=== PATIENT | female | born 1985 | race Caucasian/White ===

== ENCOUNTER 2020-10-01 08:42 | Outpatient (CLI) | payer BC, SELFPAY ==
[2020-10-01 09:30] LABS: Hematocrit 41.3 % (37.0-47.0); Hemoglobin 13.5 g/dL (12.0-15.0); Mean Corpuscular HGB Conc 32.7 g/dl (32-36); Mean Corpuscular Hemoglobin 29.5 pg (26-34); Mean Corpuscular Volume 90.4 fl (80-100); Mean Platelet Volume 9.6 fl (7.4-10.4); Platelet Count Result 236 k/mm3 (150-375); Red Blood Count 4.57 M/mm3 (4.2-5.4); Red Cell Distribution Width 12.5 % (11.5-14.5); White Blood Count 4.5 K/mm3 (4.5-10.0)
[2020-10-01 09:46] LABS: Alanine Aminotransferase 25 U/L (4-35); Albumin Level 4.7 g/dL (3.5-5.1); Alkaline Phosphatase 64 U/L (38-126); Anion Gap 5 mmol/L (8-16); Aspartate Amino Transferase 28 U/L (14-36); Bilirubin,Total 0.4 mg/dL (0.2-1.3); Blood Urea Nitrogen 16 mg/dL (7-17); Calcium 9.4 mg/dL (8.4-10.2); Carbon Dioxide 29 mmol/L (22-30); Chloride 99 mmol/L (98-107); Creatine Kinase 90 U/L (30-135); Estimated Glomerular Filt Rate > 60; Glucose 95 mg/dL (65-110); Magnesium 2.2 mg/dL (1.6-2.3); Potassium 4.3 mmol/L (3.4-5.0); Sodium 133 mmol/L (137-145)
[2020-10-01 12:34] LABS: Basophils Percent Auto 0.9 % (0.2-1.2); Eosinophils Absolute Auto 0.1 K/mm3 (0-0.3); Eosinophils Percent Auto 1.8 % (0-4.4); Immature Granulocyte Absolute 0.01 K/mm3 (0.00-0.031); Immature Granulocyte Percent A 0.2 % (0-0.5); Lymphocytes Absolute Auto 1.75 K/mm3 (0.9-3.2); Monocytes Absolute Auto 0.8 K/mm3 (0.1-0.6); Monocytes Percent Auto 17.6 % (2.6-8.5); Neutrophils Absolute Auto 1.8 K/mm3 (1.3-6.7); Neutrophils Percent Auto 40.5 % (45.5-73.1)
== END 2020-10-01 08:43 | disposition home or self-care (01) ==
PROVIDERS: PCP Family Medicine; Visit Provider Family Medicine
DX: R25.2 Cramp and spasm (principal)
CPT/HCPCS: 36415; 80053; 82550; 83735; 84443; 85025; 85027

== ENCOUNTER 2020-10-11 08:29 | Outpatient (CLI) | payer BC, SELFPAY ==
[2020-10-11 08:45] LABS: Basophils Percent Auto 0.8 % (0.2-1.2); Eosinophils Absolute Auto 0.1 K/mm3 (0-0.3); Eosinophils Percent Auto 1.9 % (0-4.4); Hematocrit 39.6 % (37.0-47.0); Hemoglobin 13.3 g/dL (12.0-15.0); Lymphocytes Absolute Auto 2.36 K/mm3 (0.9-3.2); Lymphocytes Percent Auto 44.9 % (18.3-44.2); Mean Corpuscular HGB Conc 33.6 g/dl (32-36); Mean Corpuscular Hemoglobin 29.8 pg (26-34); Mean Corpuscular Volume 88.6 fl (80-100); Monocytes Absolute Auto 0.7 K/mm3 (0.1-0.6); Monocytes Percent Auto 13.1 % (2.6-8.5); Neutrophils Absolute Auto 2.1 K/mm3 (1.3-6.7); Neutrophils Percent Auto 39.3 % (45.5-73.1); Platelet Count Result 212 k/mm3 (150-375); Red Blood Count 4.47 M/mm3 (4.2-5.4); White Blood Count 5.3 K/mm3 (4.5-10.0)
== END 2020-10-11 08:30 | disposition home or self-care (01) ==
PROVIDERS: PCP Family Medicine; Visit Provider Family Medicine
DX: D72.89 Other specified disorders of white blood cells (principal)
CPT/HCPCS: 36415; 85025

== ENCOUNTER 2020-11-15 09:30 | Outpatient (CLI) | payer BC, SELFPAY ==
[2020-11-15 10:45] LABS: Basophils Percent Auto 0.6 % (0.2-1.2); Eosinophils Absolute Auto 0.1 K/mm3 (0-0.3); Eosinophils Percent Auto 1.5 % (0-4.4); Hematocrit 42.6 % (37.0-47.0); Hemoglobin 14.1 g/dL (12.0-15.0); Immature Granulocyte Absolute 0.01 K/mm3 (0.00-0.031); Immature Granulocyte Percent A 0.2 % (0-0.5); Lymphocytes Absolute Auto 1.46 K/mm3 (0.9-3.2); Lymphocytes Percent Auto 26.8 % (18.3-44.2); Mean Corpuscular HGB Conc 33.1 g/dl (32-36); Mean Corpuscular Hemoglobin 29.8 pg (26-34); Mean Corpuscular Volume 90.1 fl (80-100); Mean Platelet Volume 9.9 fl (7.4-10.4); Monocytes Absolute Auto 0.6 K/mm3 (0.1-0.6); Monocytes Percent Auto 11.2 % (2.6-8.5); Neutrophils Absolute Auto 3.3 K/mm3 (1.3-6.7); Neutrophils Percent Auto 59.7 % (45.5-73.1); Platelet Count Result 220 k/mm3 (150-375); Red Blood Count 4.73 M/mm3 (4.2-5.4); Red Cell Distribution Width 12.1 % (11.5-14.5); White Blood Count 5.5 K/mm3 (4.5-10.0)
[2020-11-15 11:29] LABS: Alanine Aminotransferase 24 U/L (4-35); Albumin Level 4.8 g/dL (3.5-5.1); Alkaline Phosphatase 61 U/L (38-126); Anion Gap 11 mmol/L (8-16); Aspartate Amino Transferase 43 U/L (14-36); Bilirubin,Total 0.6 mg/dL (0.2-1.3); Blood Urea Nitrogen 15 mg/dL (7-17); CRP < 0.5 mg/dL (<1.0); Calcium 9.2 mg/dL (8.4-10.2); Carbon Dioxide 25 mmol/L (22-30); Chloride 105 mmol/L (98-107); Estimated Glomerular Filt Rate > 60; Glucose 81 mg/dL (65-110); Sodium 141 mmol/L (137-145)
[2020-11-15 18:41] LABS: Erythrocyte Sedimentation Rate 13 mm/hr (0-20)
[2020-11-21 11:51] LABS: BCR/abl Prior Result Not Given
[2020-11-21 12:37] LABS: BCR/abl P190 Not Detected; BCR/abl P210 Not Detected
[2020-11-21 12:38] LABS: BCR/abl P190 Chg YES; BCR/abl P210 Chg YES
== END 2020-11-15 09:31 | disposition home or self-care (01) ==
LOC: ANHLAB 09:32
PROVIDERS: PCP Family Medicine; Visit Provider Internal Medicine Hematology & Oncology
DX: D72.821 Monocytosis (symptomatic) (principal)
CPT/HCPCS: 36415; 80053; 81206; 81207; 85025; 85652; 86038; 86140; 88184

== ENCOUNTER 2020-11-21 08:24 | Outpatient (CLI) | payer BC, SELFPAY ==
--- NOTE | ~2020-11-21 | US_ITS ---
EXAMINATION: US abdomen complete EXAM DATE: 11/21/2020 09:31 INDICATION: Monocytosis TECHNIQUE: Multiple grayscale and Doppler images of the complete abdomen were obtained (by a technolo gist who performed the scan) and subsequently reviewed. There is no prior study for comparison. FINDINGS: The abdominal aorta is normal in caliber. Visualized portion IVC is patent. The pancreatic head a nd body are normal in appearance. The pancreatic tail is not visualized. The liver has normal echogenicity and contour. There are no focal liver lesions identified. There is no evidence of intrahepatic biliary duct dilation. Portal venous flow was seen in the hepatopedal , normal direction and has normal Doppler waveform. Common bile duct measures 2 mm, which is normal. The gallbladder wall is normal in thickness, with ex pected amount of distention. No sonographic evidence of pericholecystic fluid. There is no cholelit hiases. Technologist performing exam reports patient did not demonstrate sonographic Maya's sign. Please note that this sign is less reliable in patients who have received pain medication. Right kidney: There is normal contour and echogenicity. It measures 9.1 x 4.3 x 3.9 centimeters. T here are no focal renal lesions identified. There is no hydronephrosis. Left kidney: There is normal contour and echogenicity. It measures 10.0 x 5.6 x 4.5 centimeters. T here are no focal renal lesions identified. There is no hydronephrosis. The spleen measures 8.8 centimeters and is morphologically normal. IMPRESSION: Unremarkable complete abdominal ultrasound exam. Normal spleen size. Reviewed, dictated and finalized at location G. IMPRESSION: Unremarkable complete abdominal ultrasound exam. Normal spleen size .
== END 2020-11-21 08:25 | disposition home or self-care (01) ==
LOC: ANHIMG 08:27
PROVIDERS: PCP Family Medicine; Visit Provider Internal Medicine Hematology & Oncology
DX: D72.821 Monocytosis (symptomatic) (principal)
CPT/HCPCS: 76700

== ENCOUNTER 2021-05-29 15:28 | Outpatient (CLI) | payer BC, SELFPAY ==
[2021-05-29 15:44] LABS: Basophils Percent Auto 0.4 % (0.2-1.2); Eosinophils Absolute Auto 0.1 K/mm3 (0-0.3); Eosinophils Percent Auto 1.2 % (0-4.4); Hematocrit 38.6 % (37.0-47.0); Hemoglobin 12.8 g/dL (12.0-15.0); Immature Granulocyte Absolute 0.01 K/mm3 (0.00-0.031); Immature Granulocyte Percent A 0.1 % (0-0.5); Lymphocytes Percent Auto 31.4 % (18.3-44.2); Mean Corpuscular HGB Conc 33.2 g/dl (32-36); Mean Corpuscular Hemoglobin 30.5 pg (26-34); Mean Corpuscular Volume 91.9 fl (80-100); Mean Platelet Volume 10.2 fl (7.4-10.4); Monocytes Absolute Auto 0.6 K/mm3 (0.1-0.6); Monocytes Percent Auto 8.8 % (2.6-8.5); Neutrophils Absolute Auto 3.9 K/mm3 (1.3-6.7); Neutrophils Percent Auto 58.1 % (45.5-73.1); Platelet Count Result 211 k/mm3 (150-375); Red Cell Distribution Width 12.1 % (11.5-14.5); White Blood Count 6.7 K/mm3 (4.5-10.0)
[2021-05-29 16:05] LABS: Alanine Aminotransferase 17 U/L (4-35); Albumin Level 4.4 g/dL (3.5-5.1); Alkaline Phosphatase 51 U/L (38-126); Anion Gap 7 mmol/L (8-16); Aspartate Amino Transferase 40 U/L (14-36); Bilirubin,Total 0.5 mg/dL (0.2-1.3); Blood Urea Nitrogen 17 mg/dL (7-17); Calcium 9.2 mg/dL (8.4-10.2); Carbon Dioxide 24 mmol/L (22-30); Chloride 106 mmol/L (98-107); Estimated Glomerular Filt Rate > 60; Glucose 112 mg/dL (65-110); Potassium 3.7 mmol/L (3.4-5.0); Sodium 137 mmol/L (137-145)
== END 2021-05-29 15:29 | disposition home or self-care (01) ==
PROVIDERS: PCP Internal Medicine; Visit Provider Internal Medicine Hematology & Oncology
DX: D72.821 Monocytosis (symptomatic) (principal)
CPT/HCPCS: 36415; 80053; 85025

== ENCOUNTER 2021-07-16 13:58 | Outpatient (CLI) | payer BC, SELFPAY ==
[2021-07-16 14:54] LABS: Appearance Urine Slightly Cloudy (Clear); Bilirubin Urine Negative (Negative); Blood Urine Trace-lysed (Negative); Glucose Urine UA Negative (Negative); Ketones Urine Negative (Negative); Leukocyte Esterase Ur 1+ LEU/UL (Negative); Nitrate Urine Negative (Negative); Protein Urine Negative (Negative); Specific Grav Ur 1.015 (1.001-1.035); Urobilinogen Urine 0.2 mg/dL (<2.0); pH Urine 6.5 (5.0-9.0)
[2021-07-16 14:59] LABS: Add Urine Microscopic? YES; Color Urine Light Yellow (Yellow)
[2021-07-16 15:01] LABS: Bacteria Urine Trace /hpf; Mucus Urine Rare /lpf; RBC Urine 0-2 /hpf (0-2); Squamous Epithelial Cell Urine Occasional /hpf (Few); WBC Urine 16-20 /hpf
== END 2021-07-16 13:59 | disposition home or self-care (01) ==
LOC: ANHLAB 14:00
PROVIDERS: PCP Internal Medicine; Visit Provider Nurse Practitioner
DX: R39.9 Unspecified symptoms and signs involving the genitourinary system (principal)
CPT/HCPCS: 81001; 87077; 87086; 87186

== ENCOUNTER 2021-07-28 11:56 | Outpatient (CLI) | payer BC, SELFPAY ==
--- NOTE | ~2021-07-28 | US_ITS ---
EXAMINATION: US renal BI DATE: 07/28/2021 12:38 INDICATION: Right flank pain. Nephrolithiasis. TECHNIQUE: Multiple ultrasound grayscale images of the kidneys were obtained. COMPARISON: 12/01/2020 FINDINGS: The right kidney measures 9.9 x 3.8 x 6.0 cm. The left kidney measures 10.8 x 5.6 x 5.6 cm. The kidne ys demonstrate normal echogenicity. Unchanged mild right hydronephrosis. No hydronephrosis in the lef t kidney. 4 mm echogenic likely stone at the lower pole of the left kidney with twinkle artifact on color Doppler. Additional 7-8 mm echogenic likely stone at the upper pole of the left kidney. The robbin dder is normal with bilateral ureteral jets visualized on color Doppler. IMPRESSION: 1. Bilateral nephrolithiasis. 2. No interval change in either chronic or recurrent mild right hydronephrosis. Reviewed, dictated and finalized at location A.
== END 2021-07-28 11:57 | disposition home or self-care (01) ==
PROVIDERS: PCP Internal Medicine; Visit Provider Nurse Practitioner
DX: R10.9 Unspecified abdominal pain (principal); N20.0 Calculus of kidney
CPT/HCPCS: 76775

== ENCOUNTER 2021-08-19 10:13 | Outpatient (CLI) | payer BC, SELFPAY ==
[2021-08-19 11:06] LABS: Appearance Urine Clear (Clear); Bilirubin Urine Negative (Negative); Glucose Urine UA Negative (Negative); Ketones Urine Negative (Negative); Leukocyte Esterase Ur Trace LEU/UL (Negative); Nitrate Urine Negative (Negative); Protein Urine Negative (Negative); Urobilinogen Urine 0.2 mg/dL (<2.0)
[2021-08-19 11:13] LABS: Bacteria Urine Trace /hpf; Mucus Urine Rare /lpf
[2021-08-19 11:34] LABS: Add Urine Microscopic? YES; Blood Urine Trace-Intact (Negative); Color Urine Light Yellow (Yellow)
== END 2021-08-19 10:14 | disposition home or self-care (01) ==
PROVIDERS: PCP Internal Medicine; Visit Provider Internal Medicine
DX: R30.0 Dysuria (principal)
CPT/HCPCS: 81001; 87077; 87086; 87186

== ENCOUNTER 2022-01-21 15:47 | Outpatient (CLI) | payer BC, SELFPAY ==
--- NOTE | ~2022-01-21 | XR_ITS ---
XR_[id number]_CR DATE: 01/21/2022 16:04 INDICATION: Right chest pain. History of Madhav Danlos syndrome TECHNIQUE: PA chest. 3 views of the right ribs. COMPARISON: None FINDINGS: Normal heart size. No hilar or mediastinal enlargement. The lungs are clear of infiltrate or consolidation, pulmonary vascular congestion or pleural effusion. No rib fracture or bone destru ction. No pneumothorax. IMPRESSION: No active cardiopulmonary disease No significant abnormality of the right ribs Reviewed, dictated and finalized at Location A. Reviewed, dictated and finalized at location B. [employer]'S LICENSE REVIEWING OFFICER
== END 2022-01-21 15:48 | disposition home or self-care (01) ==
LOC: ANHIMG 15:48
PROVIDERS: PCP Internal Medicine; Visit Provider Nurse Practitioner
DX: R07.81 Pleurodynia (principal); Q79.60 Ehlers-Danlos syndrome, unspecified
CPT/HCPCS: 71101

== ENCOUNTER 2022-03-31 00:04 | Emergency (ER) | payer BC, SELFPAY ==
[2022-03-31 00:06] VITALS: BP 115/75; PULSE 77; RESP 18; TEMP 36.2; O2SAT 100
[2022-03-31 00:23] LABS: Appearance Urine Cloudy (Clear); Bilirubin Urine Negative (Negative); Blood Urine 3+ (Negative); Glucose Urine UA Negative (Negative); Ketones Urine Negative (Negative); Leukocyte Esterase Ur 1+ LEU/UL (Negative); Nitrate Urine Negative (Negative); Protein Urine 1+ mg/dL (Negative); Specific Grav Ur 1.015 (1.001-1.035); Urobilinogen Urine 0.2 mg/dL (<2.0)
[2022-03-31 00:25] LABS: Add Urine Microscopic? YES; Color Urine Light Red (Yellow)
[2022-03-31 00:28] LABS: Bacteria Urine Trace /hpf; Mucus Urine Rare /lpf; RBC Urine >75 /hpf (0-2); Squamous Epithelial Cell Urine Moderate /hpf (Few); WBC Urine 51-75 /hpf
--- NOTE | 2022-03-31 02:07 | PC.NURSE ---
Pt presents with c/o left sided flank pain that started earlier this evening. She recognized the pain as a kidney stone. States she had multiple episodes of hematuria at home. States while she was waiting in the waiting room I felt the stone move into my bladder, so I went to the bathroom with a urine strainer. When I looked at the strainer, it looked like I passed a bunch of tissue . She showed a picture to this RN. States there was no kidney stone in the strainer. States her left sided flank pain has resolved and now she has pain on the right side, but it feels more similar to her Madhav-Danlos pain.
[2022-03-31 02:09] LABS: Basophils Percent Auto 0.4 % (0.2-1.2); Eosinophils Absolute Auto 0.1 K/mm3 (0-0.3); Eosinophils Percent Auto 0.6 % (0-4.4); Hematocrit 36.7 % (37.0-47.0); Hemoglobin 12.6 g/dL (12.0-15.0); Immature Granulocyte Absolute 0.03 K/mm3 (0.00-0.031); Immature Granulocyte Percent A 0.3 % (0-0.5); Lymphocytes Percent Auto 17.9 % (18.3-44.2); Mean Corpuscular HGB Conc 34.3 g/dl (32-36); Mean Corpuscular Hemoglobin 30.4 pg (26-34); Mean Corpuscular Volume 88.4 fl (80-100); Mean Platelet Volume 9.6 fl (7.4-10.4); Monocytes Absolute Auto 1.2 K/mm3 (0.1-0.6); Monocytes Percent Auto 12.2 % (2.6-8.5); Neutrophils Absolute Auto 6.9 K/mm3 (1.3-6.7); Neutrophils Percent Auto 68.6 % (45.5-73.1); Platelet Count Result 238 k/mm3 (150-375); Red Blood Count 4.15 M/mm3 (4.2-5.4); Red Cell Distribution Width 12.5 % (11.5-14.5); White Blood Count 10.1 K/mm3 (4.5-10.0)
[2022-03-31 02:19] LABS: Alanine Aminotransferase 16 U/L (6-35); Albumin Level 4.4 g/dL (3.5-5.1); Alkaline Phosphatase 58 U/L (38-126); Anion Gap 5 mmol/L (8-16); Aspartate Amino Transferase 22 U/L (14-36); Bilirubin,Total 0.4 mg/dL (0.2-1.3); Blood Urea Nitrogen 18 mg/dL (7-17); Calcium 8.9 mg/dL (8.4-10.2); Carbon Dioxide 26 mmol/L (22-30); Chloride 101 mmol/L (98-107); Estimated CRCL calculation 62 ml/min; Estimated Glomerular Filt Rate > 60; Glucose 104 mg/dL (65-110); Potassium 3.9 mmol/L (3.4-5.0); Sodium 132 mmol/L (137-145)
--- NOTE | 2022-03-31 02:25 | ED.FEMALEGU ---
HPI - Female Genitourinary General Chief complaint: Urogenital-Female Stated complaint: L flank pain, kidney stone? Time Seen by Provider: 03/31/22 01:55 History of Present Illness HPI Narrative: This is a 36-year-old female with past medical history of Madhav-Danlos syndrome and multiple kidney stones who presents for left flank pain and urinary urgency. Patient states symptoms began a couple of days ago. Originally she thought she was having any EDS flare, but then felt that her symptoms felt more like a kidney stone today. She also had hematuria at home. Denies nausea. Reports left flank pain that radiates towards lower abdomen. Patient states that shortly after triage she urinated and had some clots that came out. States that her flank pain improved dramatically after urination. Now there is just minimal discomfort in the low back and suprapubic abdomen. Denies fevers, chills, chest pain, shortness of breath, lightheadedness, syncope. No past abdominal surgical history. Related Data Home Medications Medication Instructions Recorded Confirmed spironolactone 25 mg tablet 25 mg PO HS 12/19/18 01/16/22 Allergies Allergy/AdvReac Type Severity Reaction Status Date / Time Cephalosporins Allergy Mild Unknown Verified 01/16/22 07:17 latex Allergy Mild Unknown Verified 01/16/22 07:17 adhesive tape Allergy Unknown Unknown Verified 01/16/22 07:17 Review of Systems Review of Systems: CONSTITUTIONAL: Denies fever, chills, or sweats. EYES: Denies visual changes, redness, or discharge. ENT: Denies rhinorrhea, congestion, sore throat, or otalgia. CARDIOVASCULAR: Denies chest pain, palpitations, or edema. RESPIRATORY: Denies cough or dyspnea. GASTROINTESTINAL: Endorses abdominal pain. Denies nausea, vomiting, or diarrhea. Endorses flank pain GENITOURINARY: Denies dysuria. Endorses urgency and hematuria. SKIN: Denies rash or itching. MUSCULOSKELETAL: Denies back pain, joint pain, or myalgia. NEUROLOGIC: Denies headache, numbness, dizziness, or weakness. PSYCHIATRIC: Denies anxiety or depression. [facility] Past Medical History Medical History Depression Hematochezia Hypertension Ovarian cyst Renal calculi Small intestinal bacterial overgrowth (SIBO) Surgical History Surgical History History of ovarian cystectomy Hx of section [place] teeth extracted Family History Family History Father Hypertension Depression Cancer Social History Social History (Updated 01/16/22 @ 07:16 by Sarah White MA) Smoking status: Never smoker Alcohol intake: never Substance use: never Substance use type: does not use Lack of Transportation: No Lack of Food: Never True Current Housing: I Have Housing Concerned About Future Housing: No Difficulty Paying Gas/Electric Bills: No Difficulty Paying for Meds: No Currently Unemployed: No Education: Bachelor's Degree Difficulty w/ Childcare or Family Care: No Living arrangements: with family Occupation/Education: occupation 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 HEAD: Normocephalic, atraumatic. EYES: PERRLA and EOMI. ENT: Nares clear, no rhinorrhea or epistaxis. Mucous membranes moist. Oropharynx without tonsillar hypertrophy exudate or other lesions. NECK: Supple. No adenopathy or masses. CHEST: No respiratory distress. Clear to auscultation. No wheezes rales or rhonchi HEART: Regular rate and rhythm. No murmur heard. Normal peripheral pulses. ABDOMEN: Soft, nondistended, normal active bowel sounds. Minimal suprapubic tenderness. No peritoneal signs. Mild tenderness in the left flank. EXTREMITIES: Normal range of motion. No edema. SKIN: Warm, dry, no rash. NEURO: Alert and oriented x3. No foca
[2022-03-31 02:45] VITALS: BP 107/65; PULSE 66; RESP 16; O2SAT 100
== END 2022-03-31 02:50 | disposition home or self-care (01) ==
PROVIDERS: Emergency Medicine; Emergency Provider Physician Assistant; PCP Internal Medicine
DX: R10.9 Unspecified abdominal pain (principal); R31.9 Hematuria, unspecified; Q79.60 Ehlers-Danlos syndrome, unspecified; I10 Essential (primary) hypertension; F32.A Depression, unspecified; Z87.442 Personal history of urinary calculi
CPT/HCPCS: 36415; 80053; 81001; 85025; 87086; 87088; 99283

== ENCOUNTER 2022-04-27 15:21 | Outpatient (CLI) | payer BC, SELFPAY ==
--- NOTE | ~2022-04-27 | XR_ITS ---
Supine views of the abdomen Clinical history: Renal stones COMPARISON: 02/04/2008 Findings: Bowel gas pattern is nonspecific. No evidence for obstruction or free air. Suspected very s mall left renal stones noted. Osseous structures are intact. Impression: Suspected very small left renal stones. Reviewed, dictated and finalized at location . Impression: Suspected very small left renal stones.
--- NOTE | ~2022-04-27 | US_ITS ---
EXAMINATION: US retroperitoneal comp DATE: 04/27/2022 16:01 INDICATION: Bilateral renal stones TECHNIQUE: Multiple ultrasound grayscale images of the kidneys were obtained. COMPARISON: 07/28/2021 and 11/21/2020 FINDINGS: The right kidney measures 10.7 x 3.8 x 4.7 cm. The left kidney measures 10.9 x 5.1 x 5.0 cm. The kidn eys demonstrate normal echogenicity. 6 mm echogenic right renal stone with posterior twinkle artifact . Additional larger echogenic and shadowing stones in the left renal hilum. 1 cm anechoic left renal cyst. Unchanged mild right hydronephrosis. No left hydronephrosis. The bladder is normal with bilater al ureteral jets visualized on color Doppler. IMPRESSION: 1. Bilateral nephrolithiasis. 2. Unchanged chronic mild right hydronephrosis with bilateral ureteral jets visualized in the bladder on color Doppler. Reviewed, dictated and finalized at location L. IMPRESSION: 1. Bilateral nephrolithiasis. 2. Unchanged chronic mild right hydronephrosis with bilateral ureteral jets vis ualized in the bladder on color Doppler.
== END 2022-04-27 15:22 | disposition home or self-care (01) ==
PROVIDERS: PCP Internal Medicine; Visit Provider Nurse Practitioner Adult Health
DX: N20.0 Calculus of kidney (principal); N13.30 Unspecified hydronephrosis
CPT/HCPCS: 74018; 76770

== ENCOUNTER 2022-05-05 15:18 | Outpatient (CLI) | payer BC, SELFPAY ==
--- NOTE | ~2022-05-05 | CT_ITS ---
EXAMINATION: CT abdomen pelvis wo/w con DATE: 05/05/2022 16:00 INDICATION: Hydronephrosis TECHNIQUE: Computed tomography (CT) of the abdomen and pelvis was performed without and subsequently with 130 CC Omnipaque 350 intravenous contrast. Automated exposure control and iterative reconstructi on technique were employed. Exam dose: 1111.77 mGy-cm total exam DLP. COMPARISON: 04/27/2022 KUB 12/03/2007 CT abdomen FINDINGS: The lung bases are clear of infiltrate or consolidation. Right lower lobe calcified pulmona ry granuloma. Heart size is within normal range. Pectus excavatum. The liver, gallbladder, bile ducts, pancreas, pancreatic duct, spleen and adrenal glands appear mg l. Pinpoint nonobstructing upper pole right renal calculus. Large upper pole left renal staghorn calculus with attenuation of 1089 Hounsfield units. Approximately 4 pinpoint nonobstructing lower pole left renal calculi. No left or right ureteral calculus or hydroureteronephrosis. No intraluminal filling defect of the renal collecting structures, ureters or urinary bladder. Uterus and adnexal areas are unremarkable. Normal caliber of the abdominal aorta. No intraperitoneal or retroperitoneal or pelvic mass lesion or adenopathy or ascites. Normal appendix. No bowel obstruction or intraperitoneal free air. Small fat-containing umbilical hernia. Included skeletal structures are unremarkable. IMPRESSION: Bilateral nephrolithiasis Occasional small renal cysts Pectus excavatum Reviewed, dictated and finalized at Location A. Reviewed, dictated and finalized at location B.
== END 2022-05-05 15:19 | disposition home or self-care (01) ==
PROVIDERS: PCP Internal Medicine; Visit Provider Nurse Practitioner Adult Health
DX: N20.0 Calculus of kidney (principal); N28.1 Cyst of kidney, acquired; Q67.6 Pectus excavatum
CPT/HCPCS: 74178; Q9967

== ENCOUNTER 2022-06-01 14:10 | Outpatient (CLI) | payer BC, SELFPAY ==
--- NOTE | ~2022-06-01 | XR_ITS ---
XR abdomen/kub 1V DATE: 06/01/2022 14:27 INDICATION: Bilateral renal stones. Lithotripsy and stent on 05/28/2022 TECHNIQUE: AP projection, 2 views COMPARISON: 05/05/2022 CT abdomen pelvis 04/27/2022 KUB FINDINGS: There is interval placement of a left internal urinary stent, the proximal extent not fully formed, overlying the approximate region of the left renal pelvis. The distal pigtail overlies the l eft side of the urinary bladder. Faintly calcified staghorn calculus of upper pole left kidney appears to still be present. Because of the very faint density of the left renal calculi, CT imaging will be more reliable for follow-up. The lung bases appear clear. There is a prominent of fecal material in the colon. No bowel obstruction is evident. The psoas shado ws are intact. No visceromegaly is evident. Included skeletal structures are unremarkable. IMPRESSION: Left internal urinary stent placement Reviewed, dictated and finalized at Location A. Reviewed, dictated and finalized at location B.
== END 2022-06-01 14:11 | disposition home or self-care (01) ==
PROVIDERS: PCP Internal Medicine; Visit Provider Urology
DX: N20.0 Calculus of kidney (principal)
CPT/HCPCS: 74018

== ENCOUNTER → 2022-06-02 14:15 | Outpatient (CLI) | payer BC, SELFPAY ==
--- NOTE | ~2022-06-02 | XR_ITS ---
EXAMINATION: CT abdomen pelvis wo con, XR abdomen/kub 1V DATE: 06/02/2022 14:36 INDICATION: Left renal stone TECHNIQUE: 1. Computed tomography (CT) of the abdomen and pelvis was performed without intravenous contrast. Aut omated exposure control and iterative reconstruction technique were employed. The dose-length product was 281.19 mGy-cm. 2. AP view of the abdomen and pelvis was obtained on 2 overlapping radiographs. COMPARISON: CT dated 05/05/2022 and KUB dated 06/01/2022 FINDINGS: Calcified right lower lobe nodule consistent with old granulomatous disease.. Pectus excavatum which exerts mass effect upon the anterior wall of the right ventricle. Heart size is normal. No pericardia l or pleural effusion. Liver, gallbladder, spleen, pancreas and bilateral adrenal glands are normal. A couple 1-2 mm nonobstructing stones at the upper pole of the right kidney. Left internal ureteral s tent with partially formed loop in the left renal pelvis and distal formed loop in the normal bladder . There is persistent caliectasis at the upper pole of the left kidney at the site of a prior dense s taghorn calculus. Less dense appearing collection of stone fragments now seen in the lower pole calyc es of the left kidney and in the dependent aspect of the left renal pelvis. The collection of stones in the lower pole calyces are visible on the plain radiographs. No stone fragments appreciated in the left ureter alongside the ureteral stent. There are several phleboliths in the pelvis. Bowels including the appendix are normal. Anteverted uterus is normal. Trace amount of likely physiol ogic free fluid in the pelvis. No abscess or free intraperitoneal gas. No pathologically enlarged abd ominal or pelvic lymphadenopathy. Bones are unremarkable. IMPRESSION: 1. Left internal ureteral stent in expected position post lithotripsy with multiple stone fragments a t the left renal pelvis and lower pole calyces of the left kidney. No stone tendons along the left ur eter. 2. Residual mild left renal upper pole caliectasis which conforms in shape and size to the prior stag horn calculus. No ann hydronephrosis. 2. A couple nonobstructing 1-2 mm stones at the upper pole of the right kidney. Reviewed, dictated and finalized at location A. IMPRESSION: 1. Left internal ureteral stent in expected position post lithotripsy with mult iple stone fragments at the left renal pelvis and lower pole calyces of the lef t kidney. No stone tendons along the left ureter. 2. Residual mild left renal upper pole caliectasis which conforms in shape and size to the prior staghorn calculus. No ann hydronephrosis. 2. A couple nonobstructing 1-2 mm stones at the upper pole of the right kidney.
== END ==
PROVIDERS: PCP Urology; Visit Provider Urology
DX: N20.0 Calculus of kidney (principal); N28.89 Other specified disorders of kidney and ureter
CPT/HCPCS: 74018; 74176

== ENCOUNTER → 2022-07-09 13:42 | Outpatient (CLI) | payer BC, SELFPAY ==
--- NOTE | ~2022-07-09 | CT_ITS ---
Non-contrast CT scan of the Abdomen and Pelvis Clinical indication: Left-sided kidney stone Technique: 2.5 mm axial scans were obtained through the abdomen and pelvis without intravenous or or al contrast. Dose reduction technique was used on this scan by utilizing automated exposure control a nd iterative reconstruction technique. The dose-length product (DLP) was 258.78 mGy-cm. COMPARISON: 06/02/2022 Findings: Images through the lung bases reveal calcified right basilar granuloma. Left ureteral stent remains in place. No left renal or left ureteral stones seen currently. Left hydr onephrosis is essentially completely resolved. Punctate nonobstructing right renal stone noted. No ri ght hydronephrosis. The liver, spleen, pancreas, gallbladder, and adrenals appear normal. There is no aortic aneurysm. There is no evidence of bowel obstruction. Images through the pelvis were performed. There is no evidence of ascites or lymphadenopathy. Bladder unremarkable aside from the ureteral stent present. No adnexal mass evident. Impression: Left ureteral stent in place. No hydronephrosis. No left renal or ureteral stones seen currently. Punctate nonobstructing right renal stone. Reviewed, dictated and finalized at [facility]. Impression: Left ureteral stent in place. No hydronephrosis. No left renal or ureteral ston es seen currently. Punctate nonobstructing right renal stone.
== END ==
PROVIDERS: PCP Urology; Visit Provider Urology
DX: N20.0 Calculus of kidney (principal); Z96.0 Presence of urogenital implants
CPT/HCPCS: 74176

== ENCOUNTER → 2022-08-21 13:19 | Outpatient (CLI) | payer BC, SELFPAY ==
--- NOTE | ~2022-08-21 | XR_ITS ---
EXAM: XR abdomen/kub 1V DATE: 08/21/2022 13:32 HISTORY: Kidney stone on left side . COMPARISON: 06/02/2022. FINDINGS: Interval left ureteral stent removal. Clear lung bases. Normal bowel gas pattern. No organo megaly. Multiple pelvic phleboliths. Regional bones and soft tissues normal for age. IMPRESSION: The previously described bilateral renal stones are not radiographically visible, likely obscured by bowel gas. Reviewed, dictated and finalized at location K. IMPRESSION: The previously described bilateral renal stones are not radiographi celeste visible, likely obscured by bowel gas.
== END ==
PROVIDERS: PCP Urology; Visit Provider Urology
DX: N20.0 Calculus of kidney (principal)
CPT/HCPCS: 74018

== ENCOUNTER → 2022-12-23 16:07 | Outpatient (CLI) | payer BC, SELFPAY ==
--- NOTE | ~2022-12-23 | XR_ITS ---
EXAMINATION: XR lumbar spine 2-3V DATE: 12/23/2022 16:19 INDICATION: Radiculopathy, lumbar region. TECHNIQUE: 3 views of lumbar spine were obtained. COMPARISON: CT abdomen and pelvis 07/09/2022 FINDINGS: There is 4 degrees dextrocurvature of lumbar spine. Vertebral body heights are normal. Inte rvertebral disc heights are normal. There is multilevel mild facet joint osteoarthritis. IMPRESSION: 1. Mild lumbar facet joint osteoarthritis. Reviewed, dictated and finalized at location E. FERRIER
== END ==
PROVIDERS: PCP Clinical Nurse Specialist; Visit Provider Clinical Nurse Specialist
DX: M54.16 Radiculopathy, lumbar region (principal); M47.896 Other spondylosis, lumbar region
CPT/HCPCS: 72100

== ENCOUNTER → 2023-01-01 13:32 | Outpatient (CLI) | payer BC, SELFPAY ==
--- NOTE | ~2023-01-01 | MR_ITS ---
EXAMINATION: MR lumbar spine wo con DATE: 01/01/2023 14:00 INDICATION: Radiculopathy, lumbar region. TECHNIQUE: Magnetic resonance imaging (MRI) of the lumbar spine was performed without intravenous con trast. Sequences included sagittal T2-weighted FSE, sagittal T2-weighted FS FSE, sagittal T1-weighted FSE, and axial T2-weighted FSE. COMPARISON: Lumbar spine radiographs 12/23/2022 FINDINGS: Bone alignment is normal. Vertebral body heights and intervertebral disc heights are normal . The distal spinal cord signal intensity is normal. The conus medullaris is at T12-L1. The following disc levels are specifically discussed: L1-L2: The disc does not extend beyond the endplate margin. There is mild bilateral facet joint osteo arthritis. There is no neural foraminal stenosis. There is no central canal stenosis. L2-L3: The disc does not extend beyond the endplate margin. There is mild bilateral facet joint osteo arthritis. There is no neural foraminal stenosis. There is no central canal stenosis. L3-L4: The disc does not extend beyond the endplate margin. There is mild right and moderate left fac et joint osteoarthritis. There is no neural foraminal stenosis. There is no central canal stenosis. L4-L5: The disc is bulging. There is mild right and severe left facet joint osteoarthritis. There is mild bilateral neural foraminal stenosis. There is no central canal stenosis. L5-S1: The disc does not extend beyond the endplate margin. There is moderate bilateral facet joint o steoarthritis. There is no neural foraminal stenosis. There is no central canal stenosis. IMPRESSION: 1. Mild lumbar spondylosis. Reviewed, dictated and finalized at location A. 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 Mild lumbar spondylosis.
== END ==
PROVIDERS: PCP Clinical Nurse Specialist; Visit Provider Clinical Nurse Specialist
DX: M47.26 Other spondylosis with radiculopathy, lumbar region (principal)
CPT/HCPCS: 72148

== ENCOUNTER 2023-07-22 19:50 | Emergency (ER) | payer BC, SELFPAY ==
[2023-07-22 20:23] VITALS: BP 111/73; PULSE 77; RESP 17; TEMP 36.8; O2SAT 100
--- NOTE | 2023-07-22 21:42 | ED.GENADULT ---
HPI - General Adult General Chief complaint: Unspecified Stated complaint: muscle pain Time Seen by Provider: 07/22/23 20:40 Source: patient Mode of arrival: ambulatory Limitations: no limitations History of Present Illness HPI narrative: This ss a 37-year-old female with PMH of renal tubular acidosis, EDS who presents to the ED for chief complaint of body aches, worse in the back and arms. Reports that she has joined a new gym this week and has gone several times. She had a lot of muscle soreness and weakness that was abnormal for her. she told her friend about it and now she is concerned about having rhabdomyolysis. denies any numbness, focal weakness, hematuria, dysuria, headache, chest pain, shortness of breath. Related Data Home Medications Medication Instructions Recorded Confirmed spironolactone 25 mg tablet 25 mg PO HS 12/19/18 12/22/22 Allergies Allergy/AdvReac Type Severity Reaction Status Date / Time Cephalosporins Allergy Mild Unknown Verified 07/22/23 20:53 latex Allergy Mild Unknown Verified 07/22/23 20:53 adhesive tape Allergy Unknown Unknown Verified 07/22/23 20:53 Review of Systems Review of Systems: All systems as dictated in [facility] Past Medical History Medical History Depression Hematochezia Hypertension Ovarian cyst Renal calculi Small intestinal bacterial overgrowth (SIBO) Surgical History Surgical History History of ovarian cystectomy Hx of section [place] teeth extracted Family History Family History Father Hypertension Depression Cancer Social History Social History Smoking status: Never smoker Alcohol intake: never Substance use: never Substance use type: does not use Lack of Transportation: No Lack of Food: Never True Current Housing: I Have Housing Concerned About Future Housing: No Difficulty Paying Gas/Electric Bills: No Difficulty Paying for Meds: No Currently Unemployed: No Education: Bachelor's Degree Difficulty w/ Childcare or Family Care: No Living arrangements: with family Occupation/Education: occupation 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 HEAD: Normocephalic, atraumatic. EYES: PERRLA and EOMI. ENT: Nares clear, no rhinorrhea or epistaxis. Mucous membranes moist. Oropharynx without tonsillar hypertrophy exudate or other lesions. NECK: Supple. No adenopathy or masses. CHEST: No respiratory distress. Clear to auscultation. No wheezes rales or rhonchi HEART: Regular rate and rhythm. No murmur heard. Normal peripheral pulses. ABDOMEN: Soft, nontender, nondistended, normal active bowel sounds. MSK: Normal range of motion. No edema. SKIN: Warm, dry, no rash. NEURO: Alert and oriented x3. No focal deficits. PSYCH: Normal mood and affect. Course Vital Signs Vital signs: Vital Signs Temperature 98.2 F 07/22/23 20:23 Pulse Rate 77 07/22/23 20:23 Respiratory Rate 17 07/22/23 20:23 Blood Pressure 111/73 07/22/23 20:23 Pulse Oximetry 100 07/22/23 20:23 Oxygen Delivery Room Air 07/22/23 20:23 Temperature 98.2 F 07/22/23 20:23 Pulse Rate 77 07/22/23 20:23 Respiratory Rate 17 07/22/23 20:23 Blood Pressure 111/73 07/22/23 20:23 Pulse Oximetry 100 07/22/23 20:23 Oxygen Delivery Room Air 07/22/23 20:23 Medical Decision Making MDM Narrative Medical decision making narrative: This is a 29-year-old female who presents to the ED for chief complaint of body aches and generalized weakness. she joint in a gym this week and is anxious about having rhabdomyolysis. Vitals are normal. Exam is benign overall. urinalysis is sonal
[2023-07-22 21:57] LABS: Appearance Urine Clear (Clear); Bacteria Urine None Seen /hpf; Bilirubin Urine Negative (Negative); Blood Urine Trace (Negative); Color Urine Yellow (Yellow); Glucose Urine UA Negative (Negative); Ketones Urine Negative (Negative); Leukocyte Esterase Ur Negative LEU/UL (Negative); Nitrate Urine Negative (Negative); Non Pathogenic Casts 0-2; Protein Urine Negative (Negative); RBC Urine 0-2 /hpf (0-2); Specific Grav Ur 1.025 (1.001-1.035); Squamous Epithelial Cell Urine None Seen /hpf (Few); Urobilinogen Urine 0.2 mg/dL (<2.0); WBC Urine 0-5 /hpf (0-3); pH Urine 5.5 (5.0-9.0)
[2023-07-22 22:21] LABS: Add Urine Microscopic? YES
== END 2023-07-22 22:48 | disposition home or self-care (01) ==
PROVIDERS: Emergency Provider Physician Assistant; PCP Clinical Nurse Specialist
DX: S29.012A Strain of muscle and tendon of back wall of thorax, initial encounter (principal); I10 Essential (primary) hypertension; Q79.60 Ehlers-Danlos syndrome, unspecified; F32.A Depression, unspecified; Z87.442 Personal history of urinary calculi; Z79.899 Other long term (current) drug therapy; X50.9XXA Other and unspecified overexertion or strenuous movements or postures, initial encounter
CPT/HCPCS: 81001; 99283

== ENCOUNTER 2023-08-25 11:19 | Outpatient (CLI) | payer BC, SELFPAY ==
[2023-08-25 12:03] LABS: Basophils Absolute Auto 0.1 K/mm3 (0.0-0.1); Basophils Percent Auto 0.8 % (0.2-1.2); Eosinophils Absolute Auto 0.1 K/mm3 (0-0.3); Eosinophils Percent Auto 1.3 % (0-4.4); Hematocrit 41.1 % (37.0-47.0); Hemoglobin 13.7 g/dL (12.0-15.0); Immature Granulocyte Absolute 0.02 K/mm3 (0.00-0.031); Immature Granulocyte Percent A 0.3 % (0-0.5); Lymphocytes Absolute Auto 2.13 K/mm3 (0.9-3.2); Lymphocytes Percent Auto 34.8 % (18.3-44.2); Mean Corpuscular HGB Conc 33.3 g/dl (32-36); Mean Corpuscular Hemoglobin 29.5 pg (26-34); Mean Corpuscular Volume 88.4 fl (80-100); Mean Platelet Volume 10.2 fl (7.4-10.4); Monocytes Absolute Auto 0.8 K/mm3 (0.1-0.6); Monocytes Percent Auto 12.9 % (2.6-8.5); Neutrophils Absolute Auto 3.1 K/mm3 (1.3-6.7); Neutrophils Percent Auto 49.9 % (45.5-73.1); Platelet Count Result 249 k/mm3 (150-375); Red Blood Count 4.65 M/mm3 (4.2-5.4); Red Cell Distribution Width 12.7 % (11.5-14.5); White Blood Count 6.1 K/mm3 (4.5-10.0)
[2023-08-25 12:44] LABS: Alanine Aminotransferase 20 U/L (6-35); Albumin Level 4.5 g/dL (3.5-5.1); Alkaline Phosphatase 56 U/L (38-126); Anion Gap 9 mmol/L (4-12); Aspartate Amino Transferase 26 U/L (14-36); Bilirubin,Total 0.5 mg/dL (0.2-1.3); Blood Urea Nitrogen 22 mg/dL (7-17); Calcium 9.3 mg/dL (8.4-10.2); Carbon Dioxide 27 mmol/L (22-30); Chloride 103 mmol/L (98-107); Estimated Glomerular Filt Rate > 60; Glucose 83 mg/dL (65-110); Potassium 4.4 mmol/L (3.4-5.0); Sodium 139 mmol/L (137-145)
[2023-08-25 13:05] LABS: Vitamin D 25 Hydroxy 45.5 ng/mL
[2023-08-27 08:38] LABS: Thyroid Peroxidase Antibodies 1 IU/mL (<9)
== END 2023-08-25 11:20 | disposition home or self-care (01) ==
LOC: ANHLAB 11:21
PROVIDERS: PCP Clinical Nurse Specialist; Visit Provider Clinical Nurse Specialist
DX: Q79.60 Ehlers-Danlos syndrome, unspecified (principal); E55.9 Vitamin D deficiency, unspecified; I10 Essential (primary) hypertension; E53.8 Deficiency of other specified B group vitamins; F32.A Depression, unspecified; F41.9 Anxiety disorder, unspecified
CPT/HCPCS: 36415; 80053; 82306; 82607; 84443; 85025; 86376

== ENCOUNTER 2023-10-01 08:31 | Outpatient (CLI) | payer BC, SELFPAY ==
[2023-10-01 18:37] LABS: Rheumatoid Factor < 12.0 IU/ML (<12)
[2023-10-01 18:41] LABS: CRP < 0.5 mg/dL (<1.0)
[2023-10-01 19:05] LABS: Erythrocyte Sedimentation Rate 17 mm/hr (0-20)
[2023-10-01 19:13] LABS: Hemoglobin A1C 5.2 % (<5.7)
[2023-10-01 19:30] LABS: Anion Gap 7 mmol/L (4-12); Blood Urea Nitrogen 20 mg/dL (7-17); Calcium 9.3 mg/dL (8.4-10.2); Carbon Dioxide 30 mmol/L (22-30); Chloride 98 mmol/L (98-107); Estimated Glomerular Filt Rate 56; Glucose 97 mg/dL (65-110); Potassium 3.8 mmol/L (3.4-5.0); Sodium 135 mmol/L (137-145)
[2023-10-03 08:28] LABS: Insulin Level Total 10.2 uIU/mL
[2023-10-04 14:15] LABS: ANA Cascade Screen NEGATIVE (NEGATIVE)
== END 2023-10-01 08:32 | disposition home or self-care (01) ==
LOC: ANHGOSHLAB 08:32
PROVIDERS: PCP Clinical Nurse Specialist; Visit Provider Clinical Nurse Specialist
DX: R73.9 Hyperglycemia, unspecified (principal); Q79.60 Ehlers-Danlos syndrome, unspecified; G62.9 Polyneuropathy, unspecified
CPT/HCPCS: 36415; 80048; 83036; 83525; 85652; 86038; 86140; 86225; 86235; 86364; 86430

== ENCOUNTER 2023-11-01 15:41 | Outpatient (CLI) | payer BC, SELFPAY ==
--- NOTE | ~2023-11-01 | XR_ITS ---
XR abdomen/kub 1V Ordering provider: Amrik Gallardo MD History: . Kidney stone of left frandy e . Comparison: August 21, 2022 FINDINGS: BOWEL: Nonobstructive bowel gas pattern. ORGANOMEGALY: None. SIGNIFICANT PATHOLOGIC CALCIFICATIONS: Left renal stones. The right kidney is not well demonstrated d ue to fecal material. OTHER: No free air is seen under the diaphragm. IMPRESSION: NO ACUTE ABDOMINAL FINDINGS. Left kidney stones Reviewed, dictated and finalized at location A.
== END 2023-11-01 15:42 | disposition home or self-care (01) ==
LOC: ANHIMG 15:44
PROVIDERS: PCP Clinical Nurse Specialist; Visit Provider Urology
DX: N20.0 Calculus of kidney (principal)
CPT/HCPCS: 74018

== ENCOUNTER 2023-11-10 15:21 | Outpatient (CLI) | payer BC, SELFPAY ==
--- NOTE | ~2023-11-10 | CT_ITS ---
EXAMINATION: CT abdomen pelvis wo con DATE: 11/10/2023 15:35 INDICATION: KIDNEY STONE LEFT SIDE TECHNIQUE: Computed tomography (CT) of the abdomen and pelvis was performed without intravenous contr ast. Automated exposure control and iterative reconstruction technique were employed. The dose-length product was 500.97 mGy-cm. COMPARISON: 07/09/2022; x-ray abdomen 11/01/2023. FINDINGS: Lower thorax: Likely pectus deformity. Calcified right lower lobe granuloma. Liver: Normal. Biliary/Gallbladder: Gallbladder is normal. No bile duct dilation. Pancreas: No mass or duct dilation. Spleen: Normal. Adrenals:No mass. Kidneys: 8 mm and 13 mm nonobstructing calcifications in the left renal pelvis. Punctate nonobstructi ng calcification in the right upper pole. No suspicious mass, obstructing stone, or hydronephrosis. GI tract: No small or large bowel dilation. Normal appendix. Mesentery/Peritoneum: No ascites, mass, or free air. Retroperitoneum: No mass. Pelvis: Pelvic organs are within normal limits. Soft Tissues: Soft tissues and body wall unremarkable. Bones: No acute osseous finding. IMPRESSION: Bilateral nephrolithiasis. Reviewed, dictated and finalized at location K. IMPRESSION: Bilateral nephrolithiasis.
== END 2023-11-10 15:22 | disposition home or self-care (01) ==
LOC: MICIMG 15:21
PROVIDERS: PCP Internal Medicine Endocrinology, Diabetes & Metabolism; Visit Provider Urology
DX: N20.0 Calculus of kidney (principal)
CPT/HCPCS: 74176

== ENCOUNTER 2023-12-22 13:20 | Outpatient (CLI) | payer BC, SELFPAY ==
--- NOTE | ~2023-12-22 | XR_ITS ---
XR cervical spine 4-5V Ordering provider: Celi Ceballos NP History: . PAIN THAT RADIATES MAINLY DOWN THE LEFT ARM X 3 WEEKS . Comparison: None. FINDINGS: VERTEBRAL BODIES: Minimal subluxation seen at the level of C2-C3. Otherwise, Normal height and alignm ent. No visible fracture or subluxation. The dens is intact. DISK SPACES: Well maintained. PARASPINOUS SOFT TISSUES: No prevertebral soft tissue swelling. IMPRESSION: No acute osseous abnormality cervical spine. Minimal anterolisthesis at the level of C2-C3. Reviewed, dictated and finalized at location A. HOUSE ASSOCIATE
--- NOTE | ~2023-12-22 | XR_ITS ---
XR abdomen/kub 1V Ordering provider: Ceil Ceballos NP History: . KIDNEY STONE LT SIDE, HX LITHOTRIPSY X 2 WEEKS AGO . Comparison: None. FINDINGS: BOWEL: Nonobstructive bowel gas pattern. ORGANOMEGALY: None. SIGNIFICANT PATHOLOGIC CALCIFICATIONS: None. OTHER: No free air is seen under the diaphragm. IMPRESSION: NO ACUTE ABDOMINAL FINDINGS. No definite stones seen. If clinical suspicion is still present, noncontrast CT is advised. Reviewed, dictated and finalized at location A. ATTACHER
== END 2023-12-22 13:21 | disposition home or self-care (01) ==
PROVIDERS: PCP Internal Medicine; Visit Provider Nurse Practitioner
DX: M43.12 Spondylolisthesis, cervical region (principal); N20.0 Calculus of kidney
CPT/HCPCS: 72050; 74018

== ENCOUNTER 2024-01-20 15:27 | Outpatient (CLI) | payer BC, SELFPAY ==
--- NOTE | ~2024-01-20 | MR_ITS ---
MRI of the cervical spine Clinical History: Radiculopathy Technique: Axial T2-weighted and gradient images, and sagittal T1-weighted, T2-weighted, and STIR jose ges were acquired. Findings: There is no fracture or sublocation of the cervical spine. Vertebral bodies maintain normal height and alignment. No bone marrow signal abnormality seen. No significant disc protrusion or herniation seen at any cervical level. There are minimal disc bulge s at C5-C6 and C6-C7. No spinal canal stenosis, cord compression, or neural foraminal narrowing evide nt at any cervical level. No abnormal signal seen in the spinal cord. Paravertebral soft tissues are unremarkable. Impression: Minimal degenerative spondylosis, as above. Reviewed, dictated and finalized at location M. MET MAN Impression: Minimal degenerative spondylosis, as above.
== END 2024-01-20 15:28 | disposition home or self-care (01) ==
LOC: GOSHIMG 15:27
PROVIDERS: PCP Internal Medicine; Visit Provider Nurse Practitioner
DX: M47.892 Other spondylosis, cervical region (principal)
CPT/HCPCS: 72141

== ENCOUNTER 2024-03-28 08:55 | Outpatient (CLI) | payer BC, SELFPAY ==
--- NOTE | ~2024-03-28 | MR_ITS ---
EXAMINATION: MR brain/brain stem wo/w con DATE: 03/28/2024 09:31 INDICATION: Headache, unspecified. TECHNIQUE: Magnetic resonance imaging (MRI) of the brain and brainstem was performed without and with 15 mL MultiHance intravenous contrast. COMPARISON: Head CT 11/09/2018 FINDINGS: There is no intracranial hemorrhage, acute infarction, or abnormal intracranial mass lesion . The ventricles are normal in size. The orbits are normal. The paranasal sinuses are clear. The mast oid air cells are normal. IMPRESSION: 1. Normal brain. Reviewed, dictated and finalized at location A. MECHANIC APPRENTICE IMPRESSION: 1. Normal brain.
== END 2024-03-28 08:56 | disposition home or self-care (01) ==
LOC: MICIMG 08:57
PROVIDERS: PCP Clinical Nurse Specialist; Visit Provider Nurse Practitioner
DX: R51.9 Headache, unspecified (principal)
CPT/HCPCS: 70553; A9577

== ENCOUNTER 2024-05-29 12:59 | Outpatient (CLI) | payer BC, SELFPAY ==
[2024-05-29 14:07] LABS: Basophils Percent Auto 0.7 % (0.2-1.2); Eosinophils Absolute Auto 0.1 K/mm3 (0-0.3); Eosinophils Percent Auto 1.7 % (0-4.4); Hematocrit 40.1 % (37.0-47.0); Hemoglobin 13.3 g/dL (12.0-15.0); Immature Granulocyte Absolute 0.02 K/mm3 (0.00-0.031); Immature Granulocyte Percent A 0.3 % (0-0.5); Lymphocytes Absolute Auto 2.45 K/mm3 (0.9-3.2); Lymphocytes Percent Auto 42.8 % (18.3-44.2); Mean Corpuscular HGB Conc 33.2 g/dl (32-36); Mean Corpuscular Hemoglobin 29.5 pg (26-34); Mean Corpuscular Volume 88.9 fl (80-100); Mean Platelet Volume 10.1 fl (7.4-10.4); Monocytes Absolute Auto 0.7 K/mm3 (0.1-0.6); Monocytes Percent Auto 11.5 % (2.6-8.5); Neutrophils Absolute Auto 2.5 K/mm3 (1.3-6.7); Platelet Count Result 260 k/mm3 (150-375); Red Blood Count 4.51 M/mm3 (4.2-5.4); Red Cell Distribution Width 12.4 % (11.5-14.5); White Blood Count 5.7 K/mm3 (4.5-10.0)
--- OUTSIDE RECORDS SUMMARY | 2024-05-29 14:12 | XMS_ITS | Clinical Summary ---
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 Gender Identity Not on file Sexual Orientation Not on file Plan of Treatment Health Maintenance Due Date Last Done Comments Hepatitis C Virus (HCV) Screening 1985 Hepatitis B Immunization (2 of 3 - 19+ 3-dose series) 03/25/2018 02/25/2018 Influenza Immunization (#1) 10/17/202303/18, 12/07/2017 SARS-COV-2 Immunization ( season) 2023 01/17/2021, 05/04/2020, 04/13/2020 Respiratory Syncytial Virus (RSV) Immunization (Adult) (1 - 1-dose 75+ series) 12/14/2059 DTaP/Tdap/Td Immunization Discontinued 02/25/2018 TdaP Immunization Completed 02/25/2018 Meningococcal Immunization (ACWY) Aged Out No longer eligible based on patient's age to complete this topic Pneumococcal Immunization Combined Aged Out No longer eligible based on patient's age to complete this topic Rotavirus Immunization Aged Out No lo nger eligible based on patient's age to complete this topic
--- OUTSIDE RECORDS SUMMARY | 2024-05-29 14:12 | XMS_ITS | Clinical Summary ---
[facility] Address [address] [place] [address] Care Team Providers Care Residential Carpenter Name Role Phone Lola Ross MD Primary Care Provider [phone] Allergies Active Allergy Reactions Criticality Noted Date Comments Adhesive Rash Medium 01/23/2021 Cephalosporins Other (See Comments) 11/05/2020 Swollen lips Latex Rash Low 11/05/2020 Medications spironolactone (ALDACTONE) 25 mg tablet Take 25 mg by mouth daily. Active buPROPion HCL (WELLBUTRIN SR) 150 mg Sustained Release 12 hour tablet Take 150 mg by mouth daily. 05/13/2021 Active pramipexole (MIRAPEX) 0.25 mg tablet Take 0.25 mg by mouth daily at bedtime. 05/19/2021 Active pantoprazole (PROTONIX) 20 mg Tablet, Delayed Release (E.C.) Take 20 mg by mouth daily in the morning. 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 Gender Identity Not on file Sexual Orientation Not on file Last Filed Vital Signs Vital Sign Reading Time Taken Comments Blood Pressure 119/77 05/29/2021 3:01 PM CDT Pulse 72 05/29/2021 3:01 PM CDT Temperature 37.1 C (98.7 F) 05/29/2021 3:01 PM CDT Respiratory Rate - - Oxygen Saturation 98% 05/29/2021 3:01 PM CDT Inhaled Oxygen Concentration - - Weight 70.9 kg (156 lb 3.2 oz) 05/29/2021 3:01 P M CDT Height 160 cm (5' 3 ) 05/29/2021 3:01 PM CDT Body Mass Index 27.67 05/29/2021 3:01 PM CDT Plan of Treatment Health Maintenance Due Date Last Done Comments HEPATITIS B VACCINES (1 of 3 - 19+ 3-dose series) 12/14/2003 02/25/2018 PNEUMOCOCCAL VACCINE 0-49 YE ARS (1 of 2 - PCV) 12/14/2003 HPV/Cotest (21-29) 2005 PAP SMEAR 2005 CERVICAL CANCER SCREENING 2014 HPV/Cotest (30-65) 2014 PAP SMEAR 2014 INFLUENZA VACCINE (#1) 2023 12/07/2017 COVID-19 Vaccine (2 - 2023-2 5 season) 2023 01/17/2021 DTAP/TDAP/TD VACCINES (2 - T d or Tdap) 02/26/2028 02/25/2018 HPV VACCINES Aged Out No longer eligi ble based on patient's age to complete this topic Insurance BS BLUE ACCESS/TRUE BLUE PPO Care Teams Residential Carpenter Relationship Specialty Start Date End Date Lola Ross MD PCP - General Family Practice 11/05/20
--- OUTSIDE RECORDS SUMMARY | 2024-05-29 14:12 | XMS_ITS | CONTINUITY OF CARE DOCUMENT ---
Author Name allan lemus Address Unknown Organization [facility] Address [id number] [place] [address] [address] [place] [address] Phone [phone] Care Team Providers Care Tooling Supervisor Name Role Phone True SHEETS, Meek Unavailable MICHAEL SHEETS, RUNDA Unavailable MICHAEL SHEETS, RUNDA Unavailable PROBLEMS Condition Status Date Provider Notes HTN essential, nml renal US 12/03 active Paul Vo MILD DISABILITIES TEACHER CHEST PAIN, nml stress, echo 12/03 active S mitzy Vo MILD DISABILITIES TEACHER Headaches active Meek Biswas MD Dizziness active Karen Vo MILD DISABILITIES TEACHER ENCOUNTERS Date Type Provider Location Encounter Diagnosis - In-person encounter Office Visit Meek Biswas MD [place] [facility] HTN essential, nml renal US 12/03CHEST PAIN, nml stress, echo 12/03Dizziness - In-person encounter Office Visit Meek Biswas MD [place] [facility] HTN essential, nml renal US 12/03CHEST PAIN, nml stress, echo 12/03Headaches VITAL SIGNS Date Observation Value Provider Body Mass Index (Ratio) 24.02 kg/m2 Jericho Biswas MD blood pressure, diastolic 72 mm[Hg] Arnie Thakkar blood pressure, systolic 100 mm[Hg] Marisela Thakkar oxygen saturation, oximetry 99 % Sarai Thakkar respiratory rate E&M 18 /min Gordon Thakkar pulse rate 74 /min Sarai rodriguez weight E&M 135.6 [lb_av] Sarai swift height E&M 63 [in_i] Sarai rodriguez weight E&M 135 [lb_av] Elisa Hedrick Body Mass Index (Ratio) 23.91 kg/m2 Jericho Biswas MD blood pressure, diastolic 66 mm[Hg] Pete Sumner blood pressure, systolic 120 mm[Hg] Deanna Sumner oxygen saturation, oximetry 100 % Ambreen Sumner pulse rate 62 /min Ambreen Camacho blood pressure, resting Yes Jose Ramon Sumner weight E&M 135 [lb_av] Ambreen Camacho height E&M 63 [in_i] Ambreen Camacho ALLERGIES Allergy Name Onset Date Reaction Criticality Status LATEX Low Criticality active CEPHALOSPORINS hives, lip swelling Low Critical ity active HISTORY OF MEDICATION USE Medication Status Instructions Dates Provider Indications Com ments SPIRONOLACTONE 25 MG ORAL TABLET active half TAB. DAILY 8 Karen Vo NP BUSPIRONE HCL 10 MG ORAL TABLET active half -2 tab daily as needed daily 8 Ambreen Sumner ZOLOFT 50 MG ORAL TABLET active one and half tab daily 8 Ambreen Sumner SOCIAL HISTORY Date Observation Value Provider social history E&M S moking History: Fili urena has never smoked. Karen Vo NP social history reviewed E&M revi ewed - no changes required Karen Vo NP smoking status Never smoker Sarai Aragon number of grandchildren Meek Biswas MD T jennifer Biswas MD social history E&M S moking History: Fili urena has never smoked. Meek Biswas MD social history reviewed E&M revi ewed - no changes required Ambreen Sumner smoking status Never smoker Ambreen Frankie Coley FAMILY HISTORY Family Member Condition Father Family History of Hy pertension: Mother Family History of Hy perlipidemia: INSURANCE PROVIDERS Payer name Policy type / Coverage type [place] red democrat ID [place] [id number] ADVANCE DIRECTIVES Name Date DISCUSSED - NO DECISION MADE TREATMENT PLAN Date Name Performer Cardiology Karen Vo MILD DISABILITIES TEACHER Cardiology Karen Vo MILD DISABILITIES TEACHER Cardiology Karen Vo MILD DISABILITIES TEACHER Cardiology Meek Biswas MD Cardiology Meek Biswas MD Cardiology Meek Biswas MD Date Name Renal Artery Duplex Stress Routine Complete Echo HISTORY OF PROCEDURES Procedure Date Procedure Name Provider Procedure Notes S tatus Stress EKG Meek Biswas MD completed EKG Meek Biswas MD completed
--- OUTSIDE RECORDS SUMMARY | 2024-05-29 14:12 | XMS_ITS | Patient Health Record ---
Author Organization [employer] [facility] Address [address] [address] Care Team Providers Care [employer] Consultant Name Role Phone Britt Ham Unavailable [phone] Ivania Veronica Unavailable [phone] Migration, Provider Unavailable Unavailable Allergies No Known Allergies Results Component Value Reference Range Notes COMPREHENSIVE METABOLIC PANE L Reviewed date:10/13/2023 02:18:02 PM Interpretation: Performing Lab:[facility], [address] [place], [address] Gurvinder Sethi MD Notes/Report: FASTING:YES FASTING: YES ACTH, PLASMA Reviewed date:10/20/2023 09:33:54 PM Interpretation: Performing Lab:[facility], [address], [place], [address] Garry Metz M.D.,PhD Notes/Report: FASTING:YES FASTING: YES T3, FREE Reviewed date:10/13/2023 02:18:02 PM Interpretation: Performing Lab:[facility], [address] [place], [address] Gurvinder Sethi MD Notes/Report: FASTING:YES FASTING: YES CORTISOL, TOTAL Reviewed date:10/13/2023 02:18:02 PM Interpretation: Performing Lab:[facility], [address] [place], [address] Gurvinder Sethi MD Notes/Report: FASTING:YES FASTING: YES DHEA SULFATE Reviewed date:10/13/2023 02:18:02 PM Interpretation: Performing Lab:[facility], [address], [place], [address] Gurvinder Sethi MD Notes/Report: FASTING:YES FASTING: YES ESTRADIOL Reviewed date:10/13/2023 02:18:02 PM Interpretation: Performing Lab:[facility], [address], [place], [address] Gurvinder Sethi MD Notes/Report: FASTING:YES FASTING: YES FSH Reviewed date:10/13/2023 02:18:02 PM Interpretation: Performing Lab:[facility], [address], [place], [address] Gurvinder Sethi MD Notes/Report: FASTING:YES FASTING: YES INSULIN Reviewed date:10/13/2023 02:18:02 PM Interpretation: Performing Lab:[facility], [address], [place], [address] Gurvinder Sethi MD Notes/Report: FASTING:YES FASTING: YES LH Reviewed date:10/13/2023 02:18:02 PM Interpretation: Performing Lab:[facility], [address], [place], [address] Gurvinder Sethi MD Notes/Report: FASTING:YES FASTING: YES CBC (INCLUDES DIFF/PLT) Reviewed date:10/13/2023 02:18:02 PM Interpretation: Performing Lab:[facility], [address], [place], [address] Gurvinder Sethi MD Notes/Report: FASTING:YES FASTING: YES PROGESTERONE Reviewed date:10/13/2023 02:18:02 PM Interpretation: Performing Lab:[facility], [address], [place], [address] Gurvinder Sethi MD Notes/Report: FASTING:YES FASTING: YES PROLACTIN Reviewed date:10/13/2023 02:18:02 PM Interpretation: Performing Lab:[facility], [address], [place], [address] Gurvinder Sethi MD Notes/Report: FASTING:YES FASTING: YES IRON AND TOTAL IRON BINDING CAPACITY Reviewed date:10/13/2023 02:18:02 PM Interpretation: Performing Lab:[facility], [address], [place], [address] Gurvinder Sethi MD Notes/Report: FASTING:YES FASTING: YES T4, FREE Reviewed date:10/13/2023 02:18:02 PM Interpretation: Performing Lab:[facility], [facility], [address], [place], [address] Gurvinder Sethi MD Notes/Report: FASTING:YES FASTING: YES TSH Reviewed date:10/13/2023 02:18:02 PM Interpretation: Performing Lab:[facility], [facility], [address], [place], [address] Gurvinder Sethi MD Notes/Report: FASTING:YES FASTING: YES TESTOSTERONE, FREE (DIALYSIS ) AND TOTAL,MS Reviewed date:10/20/2023 09:33:54 PM Interpretation: Performing Lab:[facility], [address] [address], [address], [place], [address] Carl Magallon MD,PhD Notes/Report: FASTING:YES FASTING: YES TESTOSTERONE, TOTAL, MS 32 2-45 ng/dL For additional information, please refer to [email or web address]/BZN795 (This link is being provided for informational/educational purposes only.) (Note) This test was developed and its analytical performance characteristics have been determined by [employer]. It has not been cleared or approved by the FDA. This assay has been validated pursuant to the CLIA regulations and is used for clinical purposes. TESTOSTERONE, FREE 2 0.1-6.4 pg/mL (Note) This test was developed and its analytical performance characteristics have been determined by [facility]. It has not been cleared or approved by the FDA. This assay has been validated pursuant to the CLIA regulations and is used for clinical purposes. [facility] [address] [facility] [address] [facility] [address] Carl Magallon MD, PhD DEXAMETHASONE Reviewed date:11/29/2023 12:36:19 PM Interpretation: Performing Lab:[facility],, [address] [place], [address] Ambreen Ramsey MD,PhD,[facility] Notes/Report: DEXAMETHASONE 168 Reference Ranges for Dexamethasone: Baseline: Less than 20 ng/dL 1 mg dexamethasone overnight: 180-550 ng/dL (8:00-10:00 AM) This test was developed and its analytical performance characteristics have been determined by [facility]. It has not been cleared or approved by FDA. This assay has been validated pursuant to the CLIA regulations and is used for clinical purposes. CORTISOL, TOTAL Reviewed date:11/21/2023 08:48:03 PM Interpretation: Performing Lab:[facility], [address] [place], [address] Gurvinder Sethi MD Notes/Report: CORTISOL, FREE, 24 HOUR URIN E Reviewed date:12/12/2023 07:53:39 PM Interpretation: Performing Lab:[facility],, [address] [place], [address] Ambreen Ramsey MD,PhD,[facility] Notes/Report: FASTING:NO URINE VOLUME: 2000/NG FASTING: NO TOTAL VOLUME 2000 CORTISOL, FREE, URINE 23.0 4.0-50.0 mcg/24 h CORTISOL, FREE, URINE 20.6 Reference Range: ADULTS: 3.1-42.3 CREATININE, URINE 1.12 0.50-2.15 g/24 h This test was developed and its analytical performance characteristics have been determined by [facility]. It has not been cleared or approved by FDA. This assay has been validated pursuant to the CLIA regulations and is used for clinical purposes. Reason For Referral No Information Medications Medication SIG (Take, Route, Frequency, Duration) Notes Start Date End Date Status buPROPion HCl ER (XL) 150 MG 1 tab(s) or ally every 24 hours Active Sertraline HCl 100 MG 1 tab(s) orally on ce a day Active Pramipexole Dihydrochloride 0.5 MG 1 tab(s) orally 3 times a day Active Ondansetron 4 MG 1 tablet on the tong ue and allow to dissolve Orally twice daily as needed for 30 days 02/02/2024 Active Problems Problem Type SNOMED Code ICD Code Onset Dates Problem Status W/U Status Risk Notes Problem Obesity (469828622) Obesity, unspecified (E66.9) Active confirmed Problem Attention deficit hyperactivity disorder (762331765) Attention-deficit hyperactivity disorder, unspecified type (F90.9) Active confirmed Problem Morbid obesity (disorder) (688007558) Morbid (severe) obesity due to excess calories (E66.01) Active confirmed Problem Obesity due to excess calories (614468135) Other obesity due to excess calories (E66.09) Active confirmed Problem 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, 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 Problem 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 Vital Signs Heart Rate 71 /min 03/07/2024 SpO2: 94% Weight taken with medical boot on Respiratory Rate 12 /min 02/02/2024 Blood pressure diastolic 78 mm Hg 03/07/2024 SpO2: 94% Weight taken with medical boot on Height 63 in 03/07/2024 SpO2: 94% Weight taken with medical boot on Blood pressure systolic 112 mm Hg 03/07/2024 SpO2: 94% Weight taken with medical boot on Weight 171.4 lbs 03/07/2024 SpO2: 94% Weight taken with medical boot on BMI 30.36 kg/m2 03/07/2024 SpO2: 94% Weight taken with medical boot on Encounters Encounter Location Date Provider Diagnosis [facility] [address] [facility] [place] [address] 01/01/2024 Provider Migration [facility], [facility] - Britt Ham [address] [place] [address] 04/03/2024 Britt [facility] Dr. 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- Dr. Zamorano [address] [place] [address] 11/18/2023 Ivania Veronica Other fatigue R53.83 ; Abnormal weight gain R63.5 ; Other adrenocortical overactivity E27.0 ; Obesity, unspecified E66.9 and Hypermobile Madhav-Danlos syndrome Q79.[address] [facility] Britt Ham [address] [place] [address] 12/16/2023 Britt Wood Obesity, unspecified E66.9 and Dietary counseling and surveillance Z71.3 [facility] Britt Ham [address] [place] [address] 01/10/2024 Britt Wood Obesity, unspecified E66.9 and Dietary counseling and surveillance Z71.3 [facility] Britt Ham [address] [place] [address] 02/02/2024 Britt Wood Obesity, unspecified E66.9 ; Dietary counseling and surveillance Z71.3 and Nausea R11.[address] [facility] Britt Ham [address] [place] [address] 03/07/2024 Britt Wood Obesity, unspecified E66.9 and Dietary counseling and surveillance Z71.3 [facility] [address] [place] [address] 11/22/2023 Ivania Veronica [facility] [address] [place] [address] 11/23/2023 Britt Ham [facility]- Dr. 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 - Follow up with machine group leader and urologist as scheduled. - Consider repeating 24-hour urine calcium test if Nephrology does not. Pt to f/u in our office in 1mo after treatement with potassium. 10/07/2023 Headache, unspecified (ICD-10 - R51.9) 11/18/2023 Other fatigue (ICD-10 - R53.83) 11/18/2023 Abnormal weight gain (ICD-10 - R63.5) [facility] order: Dexamethasone, total cortisol 24 hr urine cortisol Pt instructed on how to complete DST. Discuss the possibility of GLP-1 agonist for weight loss (Wegovy, Zepbound, or compounded tirzepatide) depending on insurance coverage. We discussed how these can also help with inflammation and help with her weight gain. She will contact her insurance to determine if they have a clause for weight loss injectables. She may consider paying OOP for our compounded tirzepatide if not. 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 - Consider gabapentin for neuropathies if needed. -Consider DEXA scan given her fracture of the foot and possibility of poor bone density d/t hypercalciuria. 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 Will screen for DST to determine if thats the causation for her weight gain, mood lability, insomnia, purple striae. 02/02/2024 Nausea (ICD-10 - R11.0) 10/07/2023 Dizziness and giddiness (ICD-10 - R42) -Pending cards appt for r/o POTS 11/18/2023 Obesity, unspecified (ICD-10 - E66.9) 10/07/2023 Nausea (ICD-10 - R11.0) - Investigate possible causes, including hypercalciuria, POTS, and stress. - Follow up with veterinary radiologist for POTS evaluation. - Monitor response to potassium citrate and other interventions. 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 10/07/2023 Other fatigue (ICD-10 - R53.83) 10/07/2023 Disorder of mineral metabolism, unspecified (ICD-10 - E83.9) 8. Adrenal Function - Check ACTH and cortisol levels. 9. Vitamin Levels - Recheck vitamin B12 10/07/2023 Obesity, unspecified (ICD-10 - E66.9) 10/07/2023 Nonscarring hair loss, unspecified (ICD-10 - L65.9) - Check iron, testosterone, and other hormone levels. - Recommend natural shampoo (e.g., Purely Majestic from [employer]). 10/07/2023 Encounter for screening for other suspected endocrine disorder (ICD-10 - Z13.29) - Perform a full thyroid panel, including free T3 and free T4. 10/07/2023 Other Case discussed with AMIRA Camarena. Agree with plan. Britt Ham MD 12/16/2023 Other Assessment and Plan: 1. 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 Thyroid function- Thyroid function tests within normal limits- Plan: No intervention needed at this time; continue to monitor thyroid function as part of the patient's overall health assessment 4. Insurance coverage and medication affordability- Patient's insurance does not cover weight loss medications- Discussed [facility]'s program for patients who do not qualify for coverage, but the cost is high ($1200/month)- Plan: Explore alternative options for medication coverage or assistance programs if needed 5. Gastroparesis management (mentioned in conversation)- Discussed the use of Reglan for patients with gastroparesis and its potential side effects, including parkinsonism- Plan: Consider a low dose of Reglan for patients struggling with weight loss due to nausea, on a pzra-ea-gugm basis 6. Patient education- Instructed the patient on proper tirzepatide injection technique, storage, and site rotation- Provided information on managing potential side effects, such as taking Zofran for nausea if needed- Encouraged the patient to report any vomiting or other concerning side effects to the clinic Follow-up: Schedule a follow-up appointment in one month to assess the patient's progress and tolerance of tirzepatide injections. 01/10/2024 Other Assessment and Plan: 1. Obesity- Patient is currently on low-dose tirzepatide and has lost 6 pounds in one month.- Plan: Increase tirzepatide dose to 5 mg. Reevaluate weight loss progress and medication tolerance in 4 weeks. Provided 4 prefilled syringes of 5 mg tirzepatide- lot number [id number] 2. Cravings and hunger- Patient reported increased cravings and thoughts about food after the fourth shot of tirzepatide.- Plan: Monitor patient's cravings and hunger levels after increasing tirzepatide dose. Adjust medication as needed during follow-up visit. 3. Anxiety- Patient is already being treated for anxiety.- Plan: Continue current anxiety treatment. Monitor for any changes or exacerbations in anxiety symptoms. 4. Stretch pradhan- Patient has stretch pradhan, possibly related to recent weight gain.- Plan: Monitor stretch pradhan during weight loss process. Consider referral to a bilingual patient support caseworker if needed. 5. Insomnia- Patient reports no issues with sleep.- Plan: Continue to monitor sleep quality during follow-up visits. 6. Low Vitamin B12 levels- Patient's B12 levels are slightly low, which may contribute to fatigue.- Plan: Recommend a methylated B12 supplement or increased intake of S10-fbzb foods (turkey, chicken, fish). Recheck B12 levels at a future visit. 7. Moselle's screening- Patient's DST result was 0.9, indicating no Moselle's syndrome.- Plan: No further action needed at this time. Follow-up:- Schedule a follow-up appointment in 4 weeks to assess the patient's progress, medication tolerance, and any changes in symptoms. 02/02/2024 Other Assessment and Plan: 1. Weight loss progress- Patient has lost 15 pounds since November and is making good progress. No changes needed in the current weight loss plan. Continue tirzepatide 5 mg weekly- given 4 prefilled 5 mg tirzepatide injections- lot number [id number] 2. Nausea related to medication- Patient experiences nausea after taking the shot on Sundays and Mondays. Occasional vomiting due to sensitive gag reflex.- Plan: Prescribe 4 mg of anti-nausea medication, allowing the patient to take up to 2 tablets twice daily as needed. Start with a 30-day supply and send the prescription to [facility] in [place]. 3. Constipation- Patient reports no significant issues with constipation. No changes needed in the current management plan. 4. Cortisol levels- Patient's cortisol test results were normal (0.9). No further action needed at this time. 5. Menstrual cycle and inflammation- No reported changes in menstrual cycles or inflammation. Continue monitoring. 6. Slipped discs in the neck- Patient has 2 slipped discs in the neck, causing headaches and pain radiating down the arm. X-ray results were normal, but MRI confirmed the slipped discs.- Plan: Patient to follow up with primary care physician in February to discuss further management, including potential fusion surgery. 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 Currently experiencing hiatic pain.- Plan: Continue monitoring and discuss with primary care physician during the February follow-up appointment. 8. Patient education and follow-up- Encourage the patient to maintain a healthy diet, including protein and fiber, drink plenty of water, stay active, and ensure adequate sleep.- Schedule a follow-up appointment to assess progress and address any new concerns. Spent 15 minutes preventative counseling patient on dietary recommendations and changes in setting of hyperglycemia- need to restrict refined sugars and processed foods and incorporate up to 150 minutes of moderate level activity weekly. Spent 20 minutes preparing to see the patient (ex review of tests/chart), obtaining and / or reviewing separately obtained history, performing a medically appropriate examination and/or evaluation, counseling and educating the patient/family/car egiver, ordering medications, tests, or procedures, referring and communicating with other health infant caregiver, documenting clinical information in the electronic or other health record, independently interpreting results and communicating results to the patient/family/car egiver and care coordinating patient plan. Patient alert and oriented x 4 and aware of discussion noted above and in agreeance to plan in management of obesity/weight management and nausea. 03/07/2024 Other Assessment and Plan: 1. Stress fracture- Continue current management for stress fracture on one foot- Follow up with molder helper as needed- Monitor for improvement in gait and any complications related to previous big toe fracture 2. Obesity management- Continue tirzepatide (Mounjaro) at current dose for weight loss- Patient to self-administer injections- Monitor for continued efficacy in appetite suppression and weight management- Educate patient on proper injection technique, including allowing medication to warm to room temperature before administration 3. Anxiety- Continue current anxiety medication at increased dose- Monitor for improvement in symptoms, including hyperventilation- Reassess anxiety levels once effects of steroid injection have subsided (estimated 6-8 weeks) 4. Nerve pain- Await pain management consultation- Monitor for resolution of steroid-related side effects from recent injection- Assess effectiveness of temporary steroid injection for nerve pain management Follow-up:- Schedule a follow-up appointment in one month or when patient is close to running out of tirzepatide medication- Encourage patient to contact the clinic if any new or worsening symptoms occur, particularly related to stress fracture, anxiety, or nerve pain Spent 15 minutes preventative counseling patient on dietary recommendations and changes in setting of hyperglycemia- need to restrict refined sugars and processed foods and incorporate up to 150 minutes of moderate level activity weekly. Spent 20 minutes preparing to see the patient (ex review of tests/chart), obtaining and / or reviewing separately obtained history, performing a medically appropriate examination and/or evaluation, counseling and educating the patient/family/car egiver, ordering medications, tests, or procedures, referring and communicating with other health infant caregiver, documenting clinical information in the electronic or other health record, independently interpreting results and communicating results to the patient/family/car egiver and care coordinating patient plan. Patient alert and oriented x 4 and aware of discussion noted above and in agreeance to plan in management of weight/obesity. Plan Of Treatment No Information Insurance Providers Payer Name Payer Address Payer Phone Subscriber Number Group Number Insured Name Patient Relationship to Insured Coverage Start Date Coverage End Date [facility] [address] [place] [address] [id number] Tiera To Self - patient is the insured Medical (General) History Medical History History ICD Code hypermobile ehurs-danlos kidney stones nausea headaches hair loss abdominal pain trouble losing weight fatigue Attention-deficit hyperactivity disorder , unspecified type F90.9 ALLERGY TO CEPHALOSPORINS ALLERGY TO LATEX Surgical History Surgery Date(Month/Year) kidney stone blasting 2022 2011 ovarian cyst removal 2008
--- OUTSIDE RECORDS SUMMARY | 2024-05-29 14:12 | XMS_ITS | Clinical Summary ---
Author Organization [facility] Address [address] [place] [address] Care Team Providers Care Apparatus Cleaner Name Role Phone Lola Ross MD Primary Care Provider [phone] Source Comments [facility],non-owned Affiliates and Associated Physician Practices is amultiple site organization consisting of ambulatory clinics and hospital sitesin [place], [place], [place] and [place]. This disclosure is being madepursuant to the Care Everywhere program and may not contain all information available regarding this patient. Last updated 17.[facility] Allergies Active Allergy Reactions Criticality Noted Date Comments Adhesive Sensitivity Rash Medium 08/04/2017 Blisters Cephalosporins Swelling 08/04/2017 Latex Rash Medium 08/04/2017 Medications * Be aware that medications may not be up to date on this document. Alwaysverify current medications with the patient. SERTRALINE HCL PO Active fluticasone propionate (FLONASE) 50 MCG/ACT nasal sprayIndication s:Ear pain, left Martin 2 sprays into each nostril once daily X 7days, then decrease to 1 spray in each nostril QD x 7 days. 1 bottles 08/04/2017 Active Family History Medical History Relation Name Comments Hypertension Father Relation Name Status Comments Father Social History Tobacco Use Types Packs/Day Years Used Date Smoking Tobacco: Never Smokeless Tobacco: Never Comments No Sex and Gender Information Value Date Recorded Sex Assigned at Not on file Legal Sex Female 7:04 PM FEATHER STITCHER Gender Identity Not on file Sexual Orientation Not on file Last Filed Vital Signs Vital Sign Reading Time Taken Comments Blood Pressure 108/66 08/04/2017 3:56 PM CDT Pulse 57 08/04/2017 3:56 PM CDT Temperature 37 C (98.6 F) 08/04/2017 3:56 PM CDT Respiratory Rate 16 08/04/2017 3:56 PM CDT Oxygen Saturation 98% 08/04/2017 3:56 PM CDT Inhaled Oxygen Concentration - - Weight 60.8 kg (134 lb) 08/04/2017 3:56 PM CDT Height 160 cm (5' 3 ) 08/04/2017 3:56 PM CDT Body Mass Index 23.74 08/04/2017 3:56 PM CDT Plan of Treatment Health Maintenance Due Date Last Done Comments PAP SMEAR 1985 HIV SCREENING 12/14/1999 HEPATITIS C SCREENING 12/09/2002 DTAP/TDAP/TD VACCINES (1 - Tdap) 12/14/2003 HEPATITIS B VACCINE (1 of 3 - 19+ 3-dose series) 12/14/2003 COVID-19 VACCINE (1 - 2023-2 5 season) 2023 DEPRESSION SCREENING 02/16/2024 INFLUENZA VACCINE (Season Ended) 2024 ZOSTER VACCINE (1 of 2) 2034 HIB VACCINE Aged Out No longer eligi ble based on patient's age to complete this topic HPV VACCINE Aged Out No longer eligi ble based on patient's age to complete this topic MENINGOCOCCAL (Group B) VACC INE SHARED DECISION-MAKING Aged Out No longer eligibl e based on patient's age to complete this topic MENINGOCOCCAL GROUPS A/C/Y/W VACCINE Aged Out No longer eligible b ased on patient's age to complete this topic PNEUMOCOCCAL VACCINE Aged Out No long er eligible based on patient's age to complete this topic Insurance [facility] [place] [address] ANTHEM Care Teams Apparatus Cleaner Relationship Specialty Start Date End Date Lola Ross MD [facility] [place] [id number] PCP - General 10/29/15
--- OUTSIDE RECORDS SUMMARY | 2024-05-29 14:13 | XMS_ITS | Referral Summary ---
Author Organization [facility] Address [address] [address] Phone Care Team Providers Care Epic Prelude Analyst Name Role Phone No, Physician Primary Care Provider [phone] Allergies Active Allergy Reactions Criticality Noted Date Comments Adhesive Rash Medium 01/23/2021 Cephalosporins Swelling,Other (See comments),Rash Medium 08/04/2017 Swollen lips Latex Rash Medium 08/04/2017 Medications busPIRone (BUSPAR) 10 mg tablet buspirone 10 mg tablet TAKE 1 TABLET BY MOUTH TWICE DAILY 9 Active spironolactone (ALDACTONE) 25 mg tablet 1 Active rOPINIRole (REQUIP) 2 mg tablet 1 Active pramipexole (MIRAPEX) 0.25 mg tablet Take 1 tablet (0.25 mg total) by mouth nightly at bedtime. [address] (CYMBALTA) 30 mg capsule 3 Active HYDROcodone-viviana taminophen (NORCO) 7.5-325 mg per tabletIndicatio ns:Pain Take 1 tablet by mouth every 6 (six) hours as needed for pain Active mirabegron ER (Myrbetriq) 25 mg tablet extended release 24 hr Take 1 tablet (25 mg total) by mouth daily Active ondansetron (ZOFRAN) 4 mg tablet Take 1 tablet (4 mg total) by mouth every 8 (eight) hours 3 Active traMADoL (ULTRAM) 50 mg tablet Take 1 tablet (50 mg total) by mouth every 8 (eight) hours as needed 3 Active predniSONE (DELTASONE) 10 mg tabletIndicatio ns:Poison khadar dermatitis Take 4 tablets days 1-3, take 3 tablets days 4-6, take 2 tablets days 7-9, take 1 tablet days 10-14. 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 Allergic rhinitis 01/03/2021 Anxiety 01/03/2021 Asthma 01/03/2021 Acne 01/03/2021 Monocytosis 11/05/2020 Dizziness 12/21/2018 Chest pain, unspecified 11/22/2018 Essential (primary) hypertension 11/22/2018 Social History Tobacco Use Types Packs/Day Years Used Date Smoking Tobacco: Never Smokeless Tobacco: Never Tobacco Cessation:Counseling Given: Not Answered Comments Unknown Sex and Gender Information Value Date Recorded Sex Assigned at Not on file Legal Sex Female 4:32 PM CDT Gender Identity Female 06/23/2022 8:25 AM CDT Sexual Orientation Straight 06/23/2022 8: 25 AM CDT Last Filed Vital Signs Vital Sign Reading Time Taken Comments Blood Pressure 96/70 08/28/2022 9:26 AM CDT Pulse 81 08/28/2022 9:26 AM CDT Temperature 36.9 C (98.5 F) 08/28/2022 9:26 AM CDT Respiratory Rate 20 08/28/2022 9:26 AM CDT Oxygen Saturation 98% 08/28/2022 9:26 AM CDT Inhaled Oxygen Concentration - - Weight 72.6 kg (160 lb) 08/28/2022 9:26 AM CDT Height 160 cm (5' 3 ) 08/28/2022 9:26 AM CDT Body Mass Index 28.34 08/28/2022 9:26 AM CDT Plan of Treatment Not on file Insurance [employer] [place] [employer] ACC[employer] Care Teams Epic Prelude Analyst Relationship Specialty Start Date End Date No, Physician PCP - General 01/01/21
--- OUTSIDE RECORDS SUMMARY | 2024-05-29 14:13 | XMS_ITS ---
Author Organization [employer] [facility] Address [address] [facility] [place] [address] Care Team Providers Care Zoo Director Name Role Phone Britt Ham [phone] REASON FOR VISIT Appointment Encounters Encounter Location Date Provider Diagnosis [facility] [place] [address] 03/06/2024 Britt Ham Plan Of Treatment No Information Progress Notes * Tiera HUMMELDOB: [birth year] (38 yo F)Acc No.[id number]:03/06/2024 Patient: Falguni SOTELO Tiera :1985 A ge:38 Y S ex:Female Address:[facility] [place] [address] * true * Date: Generated for Erini ng/Faayshag/eTransmitting on: 0 05/29/2024 02:13 PM CDT
--- OUTSIDE RECORDS SUMMARY | 2024-05-29 14:13 | XMS_ITS ---
Author Organization [facility] Address [address] [place] [address] Care Team Providers Care Tool Maker Bench Name Role Phone Britt Ham [phone] REASON FOR VISIT vivian Encounters Encounter Location Date Provider Diagnosis [facility] - Britt Ham [address] [place] [address] 04/03/2024 Britt Ham Plan Of Treatment No Information Progress Notes * Tiera HUMMELDOB: [birth year] (38 yo F)Acc No.[id number]:04/03/2024 Progress Notes Patient: Tiera OTERO Provider: Zuleima Ham MD :1985 A ge:38 Y S ex:Female Date:04/03/2024 Address:[address] [place] [address] [email or web address] Subjective: * Chief Complaints: * 1 . vivian. * Medical History: Objective: * Vitals: Assessment: Plan: * Treatment: * Billing Information: * Visit Code: * Procedure Codes: * Electronic signature of Clyde Ham MD on 05/29/2024 at 02:13 PM CDT Sign off status: Pending * Provider: Zuleima Ham MD Date: 04/03/2024 Generated for Rodolfo raphael/Vern/eTransmitting on: 0 05/29/2024 02:13 PM CDT
--- OUTSIDE RECORDS SUMMARY | 2024-05-29 14:13 | XMS_ITS | Clinical Summary ---
Author Organization [facility] Address [address] [place] [phone] Phone Care Team Providers Care Breakdown Person Name Role Phone Unavailable Primary Care Provider Unavailabl e Allergies Active Allergy Reactions Criticality Noted Date Comments Cephalosporins Other (see comments),Rash,Swell ing Medium 08/04/2017 Other reaction(s): hives, lip swelling Swollen lips Swollen lips Latex Rash Medium 08/04/2017 Wound Dressing Adhesive Rash Medium 01/23/2021 Medications pramipexole (MIRAPEX) 0.5 MG tablet Take 0.25 mg by mouth every night 06/24/2022 Active sertraline (ZOLOFT) 100 MG tablet Take 25 mg by mouth 1 (one) time each day 02/22/2023 Active buPROPion XL (WELLBUTRIN XL) 300 MG 24 hr tablet Take 300 mg by mouth 1 (one) time each day Active chlorthalidone (HYGROTON) 25 MG tablet Take 0.5 tablets (12.5 mg total) by mouth 1 (one) time each day 45 tablet 3 09/07/2023 5 Active Active Problems Problem Noted Date Diagnosed Date Nephrolithiasis 09/21/2022 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 Immunizations Immunization Administration Dates Next Due PPD Test 02/22/2021 Social History Tobacco Use Types Packs/Day Years Used Date Smoking Tobacco: Never Smokeless Tobacco: Never Tobacco Cessation:Counseling Given: Not Answered Comments Unknown Sex and Gender Information Value Date Recorded Sex Assigned at Not on file Legal Sex Female 10:15 AM MDT Gender Identity Not on file Sexual Orientation Not on file Last Filed Vital Signs Vital Sign Reading Time Taken Comments Blood Pressure 110/80 09/07/2023 9:07 AM CDT Pulse 80 09/07/2023 9:07 AM CDT Temperature - - Respiratory Rate - - Oxygen Saturation - - Inhaled Oxygen Concentration - - Weight 84.8 kg (187 lb) 09/07/2023 9:07 AM CDT Height 160 cm (5' 3 ) 09/07/2023 9:07 AM CDT Body Mass Index 33.13 09/07/2023 9:07 AM CDT Plan of Treatment Upcoming Encounters Date Type Department Care Team (Late st Contact Info) Description 08/30/2024 9:40 AM CDT Office Visit [facility] [address] [facility] [address] [place], [place] [phone] Reddy Steven MD [address] [place] [address] Health Maintenance Due Date Last Done Comments Pneumococcal PPSV23 Highest Risk Adult (1 of 3 - PCV13) 12/14/2003 COVID-19 Vaccine (2 - season) 10/17/202304/2020 Influenza Vaccine (Season Ended) 2024 Insurance [facility]
--- OUTSIDE RECORDS SUMMARY | 2024-05-29 14:13 | XMS_ITS ---
Author Organization [facility] Address [address] [address] Care Team Providers Care Bait Digger Name Role Phone Britt Ham [phone] Allergies No Known Allergies REASON FOR VISIT vivian Medications Medication SIG (Take, Route, Frequency, Duration) [...] as needed for 30 days 02/02/2024 Active Vital Signs Blood pressure systolic 112 mm Hg 03/07/19 25 Blood pressure diastolic 78 mm Hg 025 Heart Rate 71 /min 03/07/2024 Height 63 in 03/07/2024 Weight 171.4 lbs 03/07/2024 BMI 30.36 kg/m2 03/07/2024 SpO2: 94%Weight taken with medical boot on Encounters Encounter Location Date Provider Diagnosis [facility] [employer] - Britt Ham [address] [place] [address] 03/07/2024 Britt Ham Obesity, unspecified E66.9 and Dietary counseling and surveillance Z71.3 Assessments Encounter Date Diagnosis (ICD Code) Assessment Notes Treatment Notes Treatment Clinical Notes Section Notes 03/07/2024 Obesity, unspecified (ICD-10 - E66.9) 03/07/2024 Dietary counseling and surveillance (ICD-10 - Z71.3) 03/07/2024 Other Assessment and Plan: 1. Stress fracture- Continue current management for stress fracture on one foot- Follow up with associate software application engineer as needed- Monitor for improvement in gait [...] examination and/or evaluation, counseling and educating the patient/family/outdoor emergency care technician, ordering medications, tests, or procedures, referring and communicating with other health medicare compliance auditor, documenting clinical information in the electronic or other health record, independently interpreting results and communicating results to the patient/family/outdoor emergency care technician and care coordinating patient plan. Patient alert and oriented x 4 and aware of discussion noted above and in agreeance to plan in management of weight/obesity. Plan Of Treatment Treatment Notes Assessment Notes Other Assessment and Plan: 1. Stress fracture- Continue current management for stress fracture on one foot- Follow up with associate software application engineer as needed- Monitor for improvement in gait [...] examination and/or evaluation, counseling and educating the patient/family/caregiver, ordering medications, tests, or procedures, referring and communicating with other health medicare compliance auditor, documenting clinical information in the electronic or other health record, independently interpreting results and communicating results to the patient/family/caregiver and care coordinating patient plan. Patient alert and oriented x 4 and aware of discussion noted above and in agreeance to plan in management of weight/obesity. Next Appt Details Follow Up: 4 Weeks, Reason: healthmgt Progress Notes * Tiera HUMMELDOB: [birth year] (38 yo F)Acc No.[id number]:03/07/2024 Progress Notes Patient: Tiera OTERO Provider: Zuleima Ham MD :1985 A ge:38 Y S ex:Female Date:03/07/2024 Address:[address] [place], [place] [id number] Subjective: * Chief Complaints: * 1 . Hm vivian. * HPI: I nterval Hx: 38 yo female comes in for follow up in management of weight management/obesity At last visit in Jan we continued tirzepatide 5 mg weekly. She has lost another 5 pounds if not more and a total of 25 pounds. Tiera presented with a stress fracture secondary to altered gait from a previously misdiagnosed big toe fracture. She reports increased anxiety and hyperventilation, potentially exacerbated by a recent steroid injection for nerve pain. Tiera is on tirzepatide for weight management, having lost 22-23 pounds, and has experienced improved injection site reactions. She has recently increased her anxiety medication dosage. Patient presents with a stress fracture secondary to altered gait. She initially broke her big toe in August, which was misdiagnosed at an urgent care facility. After walking on it for approximately 6 weeks, she consulted a associate software application engineer who confirmed the fracture, but it was too late for intervention. The altered gait to avoid pressure on the affected toe led to a stress fracture on the contralateral side. Patient reports recent onset of increased anxiety within the last couple of weeks, manifesting as hyperventilation. She recently received a steroid injection for nerve pain while awaiting pain management consultation. Patient also mentions having recently increased her anxiety medication dosage. Patient is currently on druseptide therapy for weight management. She reports experiencing a significant injection site reaction initially, which improved after allowing the medication to warm to room temperature before administration. Patient has lost approximately 22-23 pounds over the course of treatment. Medical History - Stress fracture in foot - Broken big toe (August) - Anxiety - Breathing problems (hyperventilation) - Nerve pain Current and Past Medications and Supplements - Tirzepatide (referred to as druseptide in the transcript) - Anxiety medication (unspecified, recently increased dosage) - Steroid (recent injection for nerve pain) Social History - Travel history: Recent vacation in [place] - Stress levels: Recently experiencing increased anxiety - Social support: Participates in a Facebook group for tirzeapatide users Review of Systems - Musculoskeletal: Stress fracture, broken big toe - Gastrointestinal: Regular bowel movements - Psychiatric: Increased anxiety, hyperventilation - Neurological: Nerve pain. * ROS: R ESPIRATORY: no s hortness of breath. n o c hest pain. n o?wheezing. n o a sthma. n o b reathlessness when lying flat. n o p rolonged cough. n o f requent infections (bronchitis). n o e mphysema. n o c hest congestion. n o s leep apnea. A LLERGY: no r unny nose. n o s cratchy throat. n o i tchy eyes. n o e ar fullness. n o s inus congestion. n o s tuffy nose. n o w atery eyes. n o s easonal allergies. n o h ay fever. n o a llergy.?no p olyps. n o s neezing. H EMATOLOGY/LYMPH: no s wollen glands. n o f atigue. n o l oss of appetite. n o e asy bruising. n o e asy bleeding. n o a nemia. ? U ROLOGY: no d ifficulty urinating. n o b lood in urine. n o u rinary urgency. n o f requent urination. n o u rinary incontinence. n o v oiding dysfunction. n o v ulvodynia. n o d ysparaunia. n o r ecurrent UTI. n o w eak flow. n o d ribbling after urination. n o f requent bladder infections. n o k idney stone. n o k idney disease. n o u rine hesitancy.?no p ainful urination. N UTRITION: greater than body requirmemts y es. L ess than body requirements y es. a ppropriate / adequate y es, y es. C ONSTITUTIONAL: no w eight gain. n o l oss of appetite. n o?fever. n o w eakness. n o w eight loss. n o n ight sweats. n o n ausea. n o v isual changes. n o c hange in sleep patterns. h +p reviewed y es, R OS form reviewed with patient see scan for detail. n o c hange in activity capacity.? D ERMATOLOGY: no r benjamin. n o c hange in color of moles. n o?lumps. n o d ry or sensitive skin. n o h enma. n o o jean claude skin. n o?acne. n o m oles-irregular. n o m oles-change/new. n o b oils. n o dandruff. n o e xcessive body odor. n o p soriasis. n o f ungal infections. n o n ail problems. n o r edness/inflammation. n o a thlete's foot. n o s kin cancer. n o e czema. E NDOCRINOLOGY: no f atigue. n o e xcessive sweating. n o e xcessive thirst. n o e xcessive urination. n o w eight loss. n o s leep disturbance. n o c old intolerance. n o h eat intolerence. n o t hyroid disease. n o i ncreased loss of hair. n o h x of borderline diabetes. n o d iabetes. n o a bdormal body hair. n o r heumatism. n o c hanges in skin texture.? N EUROLOGY: no h eadache. n o t ingling numbness. n o s eizures. n o i nsomnia. n o m donald loss. n o d izziness. n o g ait abnormality. n o c hange in sensation anywhere on body. n o l ocalized weakness or numbness. n o b lackouts or near blackouts. n o m igraine. n o t remors.?no f ainting spells. n o h ead injury. n o s troke. O PTHALMOLOGY: no d iminished vision. n o e ye irritation. n o?drainage from eyes. n o b lurring of vision. n o s easonal eye sx. n o?dander related eye sx. n o l oss of vision. n o c ataracts. n o g lasses/contacts. n o g laucoma. n o d etached retina. n o m acular degeneration.?no e ye redness. E NT: no c old. n o c ough. n o c oughing blood.?no n ose bleed. n o h earing loss. n o c hange in voice. n o s ore throat. n o r inging in ears. n o s noring. n o e ar pain. n o r unny nose. n o w atery eyes. n o s inus infection. n o e ar infection. n o facial pain. n o h oarseness. n o g oiter. n o g um problems. n o?postnasal drip. n o f requent nosebleeds. C ARDIOLOGY: no c hest pain. n o p alpitations. n o l eg swelling. n o d izziness. n o s hortness of breath. n o v aricose veins.?no l eg cramps. n o c old hands or feet. n o h igh blood pressure. n o ankle swelling. n o c ardiac catheterization. n o h eart attacks. n o a ngina. n o m urmurs. n o l ow blood pressure. n o l eg pain that resolves w/rest. n o p urple fingers or lips. n o i rregular heart rate. n o c ongenital heart defects. n o d izziness when standing up quickly. n o a wakening at night short of breath. G ASTROENTEROLOGY: no n ausea. n o h eartburn. n o s tool incontinence. n o r eflux. n o a bdominal pain. n o i ndigestion. n o h emorrhoids. n o h iatal hernia. n o u lcers. n o a nal fissures. n o?hepatitis. n o g allstones. n o r ed blood after bowel movements. n o v omiting. n o b loating/belching. n o d ifficulty swallowing. n o d iarrhea.?no c onstipation. n o c hange in bowel habits. n o b lood in stool. ? M USCULOSKELETAL: no j oint swelling. n o j oint pain. n o l eg cramps. n o j oint stiffness. n o a rthritis. n o b ack pain. n o?muscle aches. n o m orning stiffness. n o t endinitis. n o n kaiser pain. no b ursitis. n o b one marrow biopsy. n o g out. a ctivity intolerance?weakness. n o f racture. P SYCHOLOGY: no h igh stress level. n o d epression. n o?sleep disturbances. n o r vicki sx worse with stress. n o s uicidal ideation. n o e ating disorder. n o m ental or physical abuse. n o a nxiety. n o h eadaches. d isease state y es. F EMALE REPRODUCTIVE: no h eavy periods. n o d ysparaunia. n o s exually active. n o p remenstrual syndrome. n o d ysmenorrhea. n o i nfertility. n o f requent yeast infections. n o v aginal itching. n o i ntermenstrual bleeding. n o p ost coital bleeding. n o p ostmenopausal bleeding. n o p elvic pain. n o m enstral cycle. n o v aginal discharge. n o v aginal dryness. n o o varian cysts. n o f ibroids. n o d ischarge from breast. n o abn. bleeding between cycles. n o p ostmenopausal symptoms. n o l oss of sexual interest. n o p ainful sexual intercourse. n o e ndometriosis. n o v aginal warts. n o a bnormal pap. n o i rregular periods. n o a bnormal vaginal discharge. n o h ot flashes. 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 * Surgical History: o varian cyst removal 2008, 2011, kidney stone blasting 2022. * Hospitalization/Major Diagno stic Procedure: D enies Past Hospitalization. * Family History: F ather: diagnosed with Diabetes, Cancer, Hypertension. paternal grandmother; thyroid problems mother; high cholesterol maternal grandmother; osteoporosis maternal grandmother, paternal grandmother; parkinsons disease paternal grandfather; MS. * Social History: Non-Contributory. * Medications: T aking buPROPion HCl ER (XL) 150 MG Tablet Extended Release 24 Hour 1 tab(s) orally every 24 hours , Taking Pramipexole Dihydrochloride 0.5 MG Tablet 1 tab(s) orally 3 times a day , Taking Sertraline HCl 100 MG Tablet 1 tab(s) orally once a day , Taking Ondansetron 4 MG Tablet Disintegrating 1 tablet on the tongue and allow to dissolve Orally twice daily as needed , Medication List reviewed and reconciled with the patient * Allergies: Carl Crain Objective: * Vitals: H R: 71, BP: 112/78, Ht: 63, Wt: 171.4, BMI: 30.36. SpO2: 94% Weight taken with medical boot on. * Examination: G eneral Examination: General n ormal, NAD, well nourished and hydrated, pleasant. Neck, thyroid : s upple. Heart: B P wnl, RSR, no murmurs. Lungs: n ormal, respirations easy with conversation and ambulation. Abdomen: n ormal, round, non-distended. Neurologic exam: u nremarkable. Extremities: u nremarkable. Peripheral pulses: n ormal (2+) bilaterally . Psych: o rientation to person, place & situation, appropriate judgment noted. Assessment: * Assessment: 1. O besity, unspecified - E66.9 (Primary) 2 . D ietary counseling and surveillance - Z71.3 Plan: * Treatment: * Procedure Codes: 9 9401 P/M MED ADMIN, INDIV 15 MIN * Follow Up: 4 Weeks (Reason: healthmgt) * Billing Information: * Visit Code: 27802 Office Visit, Est Pt., Level 3. * Procedure Codes: 91113 P/M MED ADMIN, INDIV 15 MIN. * NE LATHE SET UP OPERATOR Sign off status: Completed true * Provider: Zuleima Ham MD Date: 0 03/07/2024 Generated for Rodolfo raphael/Vern/Gaganitting on: 0 05/29/2024 02:12 PM CDT History and Physical Notes * HPI (History of Present Illness) Category Sub-Category Detail Notes Category Not es Interval Hx 38 yo female comes in for follow up in management of weight management/obesity At last visit in Jan we continued tirzepatide 5 mg weekly. She has lost another 5 pounds if not more and a total of 25 pounds. Tiera presented with a stress fracture secondary to altered gait from a previously misdiagnosed big toe fracture. She reports increased anxiety and hyperventilation, potentially exacerbated by a recent steroid injection for nerve pain. Tiera is on tirzepatide for weight management, having lost 22-23 pounds, and has experienced improved injection site reactions. She has recently increased her anxiety medication dosage. Patient presents with a stress fracture secondary to altered gait. She initially broke her big toe in August, which was misdiagnosed at an urgent care facility. After walking on it for approximately 6 weeks, she consulted a associate software application engineer who confirmed the fracture, but it was too late for intervention. The altered gait to avoid pressure on the affected toe led to a stress fracture on the contralateral side. Patient reports recent onset of increased anxiety within the last couple of weeks, manifesting as hyperventilation. She recently received a steroid injection for nerve pain while awaiting pain management consultation. Patient also mentions having recently increased her anxiety medication dosage. Patient is currently on druseptide therapy for weight management. She reports experiencing a significant injection site reaction initially, which improved after allowing the medication to warm to room temperature before administration. Patient has lost approximately 22-23 pounds over the course of treatment. Medical History - Stress fracture in foot - Broken big toe (August) - Anxiety - Breathing problems (hyperventilation) - Nerve pain Current and Past Medications and Supplements - Tirzepatide (referred to as druseptide in the transcript) - Anxiety medication (unspecified, recently increased dosage) - Steroid (recent injection for nerve pain) Social History - Travel history: Recent vacation in [place] - Stress levels: Recently experiencing increased anxiety - Social support: Participates in a Facebook group for tirzeapatide users Review of Systems - Musculoskeletal: Stress fracture, broken big toe - Gastrointestinal: Regular bowel movements - Psychiatric: Increased anxiety, hyperventilation - Neurological: Nerve pain Examination Category Sub-Category Detail Notes Category Not es General Examination Neck, thyroid : supple Heart: BP wnl, RSR, no murm urs Lungs: normal, respirations easy with conversation and ambulation Abdomen: normal, round, non-d istended Extremities: unremarkable General normal, NAD, well no urished and hydrated, pleasant Neurologic exam: unremarkable Peripheral pulses: normal (2+) bilatera lly Psych: orientation to perso n, place & situation, appropriate judgment noted
--- OUTSIDE RECORDS SUMMARY | 2024-05-29 14:13 | XMS_ITS | Clinical Summary ---
Author Organization [facility] Address [address] [address] Phone Care Team Providers Care Director Of Provider Relations Name Role Phone No, Physician Primary Care Provider [phone] Allergies Active Allergy Reactions Criticality Noted Date [...] pain, unspecified 11/22/2018 Essential (primary) hypertension 11/22/2018 Surgical History Surgery Date Site/Laterality Comments SECTION 02/15/2011 - 02/15/2012 OVARIAN CYST REMOVAL 02/16/2008 - 02/14/2009 LITHOTRIPSY 05/28/2022 Medical History Medical History Date Comments Depression Hypermobility of joint High cholesterol 2016 Hypertension Kidney stones GERD (gastroesophageal reflux disease) Anxiety Family History Medical History Relation Name Comments Alcohol abuse Father Alexx Hypertension Father Alexx Relation Name Status Comments Father Alexx Social History Tobacco Use Types Packs/Day Years Used Date Smoking Tobacco: Never Smokeless Tobacco: Never Tobacco Cessation:Counseling Given: Not Answered Comments Unknown Sex and Gender Information Value Date Recorded Sex Assigned at Not on file Legal Sex Female 4:32 PM CDT Gender Identity Female 06/23/2022 8:25 AM CDT Sexual Orientation Straight 06/23/2022 8: 25 AM CDT Obstetrics History Last Filed Vital Signs Vital Sign Reading [...] 08/28/2022 9:26 AM CDT Plan of Treatment Health Maintenance Due Date Last Done Comments Cervical Cancer Screening 1984 Depression Screening 1984 Hepatitis C Screening 1984 Varicella Vaccines (1 of 2 - 13+ 2-dose series) 1997 Regular Well Visit/Exam 18-64 2002 Pneumococcal vaccine <65 (1 of 2 - PCV) 12/14/2003 Covid-19 Vaccine (4 - 2023-2 5 season) 2023 01/17/2021, 05/04/2020, 04/13/2020 Influenza Vaccine (Season Ended) 2024 03/29/2019, 12/07/2017 DTaP/Tdap/Td Vaccine (2 - Td or Tdap) 02/26/2028 02/25/2018 Hepatitis B Screening Completed 02/25/2018 HPV Vaccines Aged Out No longer eligi ble based on patient's age to complete this topic Insurance CHOICE PRF PPO [place] BLUE ACCESS OOS BLUE ACCESS OOS Care Teams Director Of Provider Relations Relationship Specialty Start Date End Date No, Physician PCP - General 01/01/21
--- OUTSIDE RECORDS SUMMARY | 2024-05-29 14:13 | XMS_ITS | Encounter Summary ---
Author Organization [facility] Address [address] [place] [address] Care Team Providers Care Financing Analyst Name Role Phone Lola Ross MD Primary Care Provider [phone] Encounter Details Date Type Department Care Team (Late st Contact Info) Description 02/04/2004 [facility] [address] [place] [address] Ricki Robertson MD [address] [address] RENAL & URETERAL DIS NOS (Primary Dx) Social History Tobacco Use Types Packs/Day Years Used Date Smoking Tobacco: Never Assessed Comments Unknown Sex and Gender Information Value Date Recorded Sex Assigned at Not on file Legal Sex Female 3:13 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
--- OUTSIDE RECORDS SUMMARY | 2024-05-29 14:13 | XMS_ITS | Patient Health Record ---
Author Organization [facility] [email or web address] Address [address] [place] [address] Care Team Providers Care Applications Architect Name Role Phone JESSICA REEVES Primary Care Provider Dallas Stevens Unavailable [phone] Migration, Provider Unavailable Unavailable Allergies Allergen (clinical drug ingredient) Drug/Non Drug Allergy documented on EMR Reaction Allergy Type Onset Date Status ADHESIVE TAPE (uncoded) Unknown Allergy 2023 Active Medicinal cephalosporin and acting as antibacterial agent (FN) Cephalosporins Unknown Drug Allergy 07/01/2023 Active Latex Latex Unknown Allergy 07/01/2023 Active Reason For Referral No Information Medications Medication SIG (Take, Route, Frequency, Duration) Notes Start Date End Date Status Ondansetron 4 MG Oral 07/01/2023 Ac tive Qulipta 30 MG TAKE 1 TABLET BY YOEL TH EVERY DAY Oral for 30 Days Active buPROPion HCl ER (XL) 150 MG 1 tablet ev sammie morning Orally Once a day for 90 days Active Pramipexole Dihydrochloride 0.5 MG 0.5 MG ORALLY EVERY DAY AT BEDTIME Oral for 90 Days Active Sertraline HCl 100 MG 1.5 tablet Oral On ce a day for 90 days Active Tirzepatide 5 MG/0.5ML as directed Subcutaneous Active ALPRAZolam 0.5 MG Oral 07/01/2023 A ctive Social History Tobacco Use: Social History Observation Description Date Details (start date - stop date) Never Smoker NA - NA Sex Assigned At : Social History Observation Description Sex Assigned At Female Tobacco Control (Standard) Question Answer Notes Tobacco use: Nonsmoker AUDIT-C (Standard) Question Answer Notes Did you have a drink contain ing alcohol in the past year? Yes How often did you have six o r more drinks on one occasion in the past year? Never (0 point) How often did you have a dri nk containing alcohol in the past year? Monthly or less (1 point) Problems Problem Type SNOMED Code ICD Code Onset Dates Problem Status W/U Status Risk Notes Problem Mild recurrent major depression (13052280) Major depressive disorder, recurrent, mild (F33.0) 07/01/19 Active confirmed Problem Generalized anxiety disorder (80431022) Generalized anxiety disorder (F41.1) 07/01/19 Active confirmed Problem Attention deficit hyperactivity disorder, combined type (98155493) Attention-deficit hyperactivity disorder, combined type (F90.2) 07/01/19 Active confirmed Problem Binge eating disorder (838428413) Binge eating disorder (F50.81) 07/01/19 Active confirmed Vital Signs Heart Rate 70 /min 04/24/2024 Blood pressure diastolic 79 mm Hg 04/24/2024 Height-cm 160.02 cm 04/24/2024 Weight-kg 76.57 kg 04/24/2024 Height 63.00 in 04/24/2024 Blood pressure systolic 109 mm Hg 04/24/2024 Weight 168.8 lbs 04/24/2024 BMI 29.9 kg/m2 04/24/2024 Encounters Encounter Location Date Provider Diagnosis [facility] [employer] [address] [facility] [address] [address] 07/01/2023 Dallas Lilly Major depressive disorder, recurrent, mild F33.0 ; Attention-deficit hyperactivity disorder, combined type F90.2 ; Binge eating disorder F50.81 and Generalized anxiety disorder F41.1 [facility] [address] [facility] [address] [facility] [address] [place] [address] 08/09/2023 Dallas Rodriguezoza Major depressive disorder, recurrent, mild F33.0 ; Attention-deficit hyperactivity disorder, combined type F90.2 ; Binge eating disorder F50.81 and Generalized anxiety disorder F41.1 [facility] [address] [facility] [address] [facility] [address] [place] [address] 09/07/2023 Dallas Rodriguezoza Major depressive disorder, recurrent, mild F33.0 ; Attention-deficit hyperactivity disorder, combined type F90.2 ; Binge eating disorder F50.81 and Generalized anxiety disorder F41.1 [place] [id number] [facility] [address] [facility] [address] [place] [address] 10/05/2023 Dallas Lilly Major depressive disorder, recurrent, mild F33.0 ; Attention-deficit hyperactivity disorder, combined type F90.2 ; Binge eating disorder F50.81 and Generalized anxiety disorder F41.[address] [facility] [address] [place] [address] 11/05/2023 Dallas Lilly Major depressive disorder, recurrent, mild F33.0 ; Attention-deficit hyperactivity disorder, combined type F90.2 ; Binge eating disorder F50.81 and Generalized anxiety disorder F41.[address] [facility] [address] [place] [address] 02/22/2024 Dallas Lilly Major depressive disorder, recurrent, mild F33.0 ; Attention-deficit hyperactivity disorder, combined type F90.2 ; Generalized anxiety disorder F41.1 and Binge eating disorder, mild F50.[address] [address] 04/24/2024 Dallas Lilly Encounter for screening for depression Z13.31 ; Encounter for screening for cardiovascular disorders Z13.6 ; Major depressive disorder, recurrent, mild F33.0 ; Attention-deficit hyperactivity disorder, combined type F90.2 ; Generalized anxiety disorder F41.1 and Binge eating disorder, mild F50.[address] [address] 06/10/2023 Provider Migration [address] [address] 07/03/2023 Provider [place] [address] [facility] [address] [address] 07/04/[address] [address] 09/16/2023 Dallas Lilly Attention-deficit hyperactivity disorder, combined type F90.2 [place] [id number] [facility] [address] [address] 09/16/2023 Dallas Lilly Assessments Encounter Date Diagnosis (ICD Code) Assessment Notes Treatment Notes Treatment Clinical Notes Section Notes 07/01/2023 Major depressive disorder, recurrent, mild (ICD-10 - F33.0) 07/01/2023 Generalized anxiety disorder (ICD-10 - F41.1) 07/01/2023 Attention-deficit hyperactivity disorder, combined type (ICD-10 - F90.2) 07/01/2023 Binge eating disorder (ICD-10 - F50.81) 08/09/2023 Major depressive disorder, recurrent, mild (ICD-10 - F33.0) 1. Binge Eating Disorder: - Patient reports improvement in binge eating symptoms, possibly due to counseling and seeing a exhaust emissions automotive technician specializing in eating disorders. - Bupropion XL 150 mg daily was initiated for binge eating, but the patient is unsure of its effectiveness. Plan: - Increase Bupropion XL to 300 mg daily. - Continue counseling and exhaust emissions automotive technician visits. - Reevaluate in one month. 2. ADHD: - Patient reports persistent ADHD symptoms, which are affecting daily tasks. - Concerta was previously tried but caused anxiety and breathing problems. - Vyvanse was not effective for ADHD symptoms. Plan: - Monitor the effect of increased Bupropion XL on ADHD symptoms. - Reevaluate in one month to consider alternative ADHD medications if necessary. 3. Anxiety and Depression: - Patient is currently stable on Sertraline 100 mg daily. Plan: - Continue Sertraline 100 mg daily. - Monitor for any changes in anxiety or depression symptoms during follow-up visits. 4. Follow-up: - Schedule a follow-up appointment in one month to assess the effectiveness of the increased Bupropion XL dosage and to monitor ADHD, anxiety, and depression symptoms. 08/09/2023 Attention-deficit hyperactivity disorder, combined type (ICD-10 - F90.2) 1. Binge Eating Disorder: - Patient reports improvement in binge eating symptoms, possibly due to counseling and seeing a exhaust emissions automotive technician specializing in eating disorders. - Bupropion XL 150 mg daily was initiated for binge eating, but the patient is unsure of its effectiveness. Plan: - Increase Bupropion XL to 300 mg daily. - Continue counseling and exhaust emissions automotive technician visits. - Reevaluate in one month. 2. ADHD: - Patient reports persistent ADHD symptoms, which are affecting daily tasks. - Concerta was previously tried but caused anxiety and breathing problems. - Vyvanse was not effective for ADHD symptoms. Plan: - Monitor the effect of increased Bupropion XL on ADHD symptoms. - Reevaluate in one month to consider alternative ADHD medications if necessary. 3. Anxiety and Depression: - Patient is currently stable on Sertraline 100 mg daily. Plan: - Continue Sertraline 100 mg daily. - Monitor for any changes in anxiety or depression symptoms during follow-up visits. 4. Follow-up: - Schedule a follow-up appointment in one month to assess the effectiveness of the increased Bupropion XL dosage and to monitor ADHD, anxiety, and depression symptoms. 09/07/2023 Major depressive disorder, recurrent, mild (ICD-10 - F33.0) bupropion xl 300mg daily, sertraline 100mg daily 1. Major Depressive Disorder: - Patient reports feeling good on current medications, with no concerns for depression or anxiety. - Continue bupropion XL 300 mg daily. - Continue sertraline 100 mg daily. 2. Binge Eating Disorder: - Patient reports stable eating habits, with no recent episodes of binging. Plan: - Continue monitoring and addressing in therapy. 3. ADHD Combined Type: - Patient reports ongoing symptoms, including lack of focus, impulsivity, and hyper-fixation. - Previous trials of Concerta and atomoxetine had side effects or were discontinued. Plan: - Start Qelbree 200 mg daily, with potential for dose adjustment based on patient's sensitivity and response. - Prior authorization required; provide patient with samples to begin treatment. - Encourage patient to discuss impulsive behaviors with their therapist. 4. Anxiety: - Patient reports no current anxiety issues on bupropion and sertraline. Plan: - Monitor for potential anxiety related to ADHD medications. Follow-up: - Schedule a follow-up appointment in one month to assess the patient's response to Qelbree and overall mental health status. 09/16/2023 Attention-deficit hyperactivity disorder, combined type (ICD-10 - F90.2) 10/05/2023 Major depressive disorder, recurrent, mild (ICD-10 - F33.0) sertraline 100mg daily, bupropion xl 300mg daily 1. Major Depressive Disorder: - Patient reports no current depressive symptoms and is stable on bupropion XL 300mg and sertraline 100mg. Plan: - Continue bupropion XL 300mg daily and sertraline 100mg daily. - Monitor for any changes in mood or depressive symptoms. 2. Anxiety: - Patient reports anxiety is manageable and not causing significant distress. Plan: - Continue current medications and monitor for any changes in anxiety levels. 3. ADHD: - Patient experienced insomnia with Qelbree 200mg and wishes to discontinue it. Previous trials of stimulants resulted in breathing problems or sleep disturbances. Plan: - Discontinue Qelbree 200mg. - Start Jornay 20mg at bedtime for ADHD symptoms. - Monitor for effectiveness and any side effects. - Follow up in one month to assess response to Jornay 20mg. 4. Medication management: - Patient is currently on bupropion XL 300mg, sertraline 100mg, and will start Journay 20mg. Plan: - Monitor for any potential drug interactions or side effects. - Follow up in one month to assess medication effectiveness and tolerability. 11/05/2023 Major depressive disorder, recurrent, mild (ICD-10 - F33.0) sertraline 100mg daily, bupropion xl 300mg daily 1. Breathing problems related to medication: - The patient reported experiencing breathing problems after taking stimulant medications. The exact cause is unclear, but it may be related to anxiety or OCD. Plan: - Discontinue the use of stimulant medications for now. - Monitor the patient's breathing issues and consider alternative treatments if necessary. 2. Anxiety: - The patient reported increased anxiety, possibly related to school and the use of bupropion XL 300. Plan: - Decrease the bupropion XL dosage to 150 mg daily. - Monitor the patient's anxiety levels and adjust the medication as needed. - Encourage the patient to continue therapy sessions to address anxiety and potential OCD symptoms. 3. Depression: - The patient is currently on sertraline 100 mg for depression management. Plan: - Refill the sertraline prescription. - Monitor the patient's mood and adjust the medication as needed. 4. Follow-up: - Schedule a follow-up appointment in three months to assess the patient's progress and medication effectiveness. - Instruct the patient to contact the clinic if they experience any issues with the lower dose of bupropion or if their mood worsens. 04/24/2024 Encounter for screening for depression (ICD-10 - Z13.31) 02/22/2024 Major depressive disorder, recurrent, mild (ICD-10 - F33.0) sertraline 100mg daily, bupropion xl 150mg daily 1. Anxiety: - Patient reports increased anxiety, possibly related to compounded tirzepatide injections. - Currently on sertraline 100 mg daily. Plan: - Increase sertraline to 150 mg daily. - Reevaluate the patient's anxiety levels in 6 weeks. 2. Depression: - Patient is currently on bupropion XL 150 mg daily, which seems to be working well for depression management. Plan: - Continue bupropion XL 150 mg daily. 3. Weight management: - Patient is on compounded tirzepatide injections for weight management, as prescribed by their fur coat sewer . - Patient reports nausea and anxiety as side effects. Plan: - Encourage the patient to discuss side effects with their fur coat sewer . - Monitor the patient's weight and overall well-being during follow-up visits. Follow-up: - Schedule a follow-up appointment in 6 weeks to assess the patient's anxiety levels and overall well-being. 02/22/2024 Attention-deficit hyperactivity disorder, combined type (ICD-10 - F90.2) 1. Anxiety: - Patient reports increased anxiety, possibly related to compounded tirzepatide injections. - Currently on sertraline 100 mg daily. Plan: - Increase sertraline to 150 mg daily. - Reevaluate the patient's anxiety levels in 6 weeks. 2. Depression: - Patient is currently on bupropion XL 150 mg daily, which seems to be working well for depression management. Plan: - Continue bupropion XL 150 mg daily. 3. Weight management: - Patient is on compounded tirzepatide injections for weight management, as prescribed by their fur coat sewer . - Patient reports nausea and anxiety as side effects. Plan: - Encourage the patient to discuss side effects with their fur coat sewer . - Monitor the patient's weight and overall well-being during follow-up visits. Follow-up: - Schedule a follow-up appointment in 6 weeks to assess the patient's anxiety levels and overall well-being. 02/22/2024 Generalized anxiety disorder (ICD-10 - F41.1) 1. Anxiety: - Patient reports increased anxiety, possibly related to compounded tirzepatide injections. - Currently on sertraline 100 mg daily. Plan: - Increase sertraline to 150 mg daily. - Reevaluate the patient's anxiety levels in 6 weeks. 2. Depression: - Patient is currently on bupropion XL 150 mg daily, which seems to be working well for depression management. Plan: - Continue bupropion XL 150 mg daily. 3. Weight management: - Patient is on compounded tirzepatide injections for weight management, as prescribed by their fur coat sewer . - Patient reports nausea and anxiety as side effects. Plan: - Encourage the patient to discuss side effects with their fur coat sewer . - Monitor the patient's weight and overall well-being during follow-up visits. Follow-up: - Schedule a follow-up appointment in 6 weeks to assess the patient's anxiety levels and overall well-being. 04/24/2024 Encounter for screening for cardiovascular disorders (ICD-10 - Z13.6) 10/05/2023 Attention-deficit hyperactivity disorder, combined type (ICD-10 - F90.2) 1. Major Depressive Disorder: - Patient reports no current depressive symptoms and is stable on bupropion XL 300mg and sertraline 100mg. Plan: - Continue bupropion XL 300mg daily and sertraline 100mg daily. - Monitor for any changes in mood or depressive symptoms. 2. Anxiety: - Patient reports anxiety is manageable and not causing significant distress. Plan: - Continue current medications and monitor for any changes in anxiety levels. 3. ADHD: - Patient experienced insomnia with Qelbree 200mg and wishes to discontinue it. Previous trials of stimulants resulted in breathing problems or sleep disturbances. Plan: - Discontinue Qelbree 200mg. - Start Jornay 20mg at bedtime for ADHD symptoms. - Monitor for effectiveness and any side effects. - Follow up in one month to assess response to Jornay 20mg. 4. Medication management: - Patient is currently on bupropion XL 300mg, sertraline 100mg, and will start Journay 20mg. Plan: - Monitor for any potential drug interactions or side effects. - Follow up in one month to assess medication effectiveness and tolerability. 11/05/2023 Attention-deficit hyperactivity disorder, combined type (ICD-10 - F90.2) 1. Breathing problems related to medication: - The patient reported experiencing breathing problems after taking stimulant medications. The exact cause is unclear, but it may be related to anxiety or OCD. Plan: - Discontinue the use of stimulant medications for now. - Monitor the patient's breathing issues and consider alternative treatments if necessary. 2. Anxiety: - The patient reported increased anxiety, possibly related to school and the use of bupropion XL 300. Plan: - Decrease the bupropion XL dosage to 150 mg daily. - Monitor the patient's anxiety levels and adjust the medication as needed. - Encourage the patient to continue therapy sessions to address anxiety and potential OCD symptoms. 3. Depression: - The patient is currently on sertraline 100 mg for depression management. Plan: - Refill the sertraline prescription. - Monitor the patient's mood and adjust the medication as needed. 4. Follow-up: - Schedule a follow-up appointment in three months to assess the patient's progress and medication effectiveness. - Instruct the patient to contact the clinic if they experience any issues with the lower dose of bupropion or if their mood worsens. 09/07/2023 Attention-deficit hyperactivity disorder, combined type (ICD-10 - F90.2) Electronic Prior Authorization was requested for Qelbree 200 MG Capsule Extended Release 24 Hour. Provider can order medication once approval received. start qelbree 200mg once daily 1. Major Depressive Disorder: - Patient reports feeling good on current medications, with no concerns for depression or anxiety. - Continue bupropion XL 300 mg daily. - Continue sertraline 100 mg daily. 2. Binge Eating Disorder: - Patient reports stable eating habits, with no recent episodes of binging. Plan: - Continue monitoring and addressing in therapy. 3. ADHD Combined Type: - Patient reports ongoing symptoms, including lack of focus, impulsivity, and hyper-fixation. - Previous trials of Concerta and atomoxetine had side effects or were discontinued. Plan: - Start Qelbree 200 mg daily, with potential for dose adjustment based on patient's sensitivity and response. - Prior authorization required; provide patient with samples to begin treatment. - Encourage patient to discuss impulsive behaviors with their therapist. 4. Anxiety: - Patient reports no current anxiety issues on bupropion and sertraline. Plan: - Monitor for potential anxiety related to ADHD medications. Follow-up: - Schedule a follow-up appointment in one month to assess the patient's response to Qelbree and overall mental health status. 08/09/2023 Binge eating disorder (ICD-10 - F50.81) 1. Binge Eating Disorder: - Patient reports improvement in binge eating symptoms, possibly due to counseling and seeing a exhaust emissions automotive technician specializing in eating disorders. - Bupropion XL 150 mg daily was initiated for binge eating, but the patient is unsure of its effectiveness. Plan: - Increase Bupropion XL to 300 mg daily. - Continue counseling and exhaust emissions automotive technician visits. - Reevaluate in one month. 2. ADHD: - Patient reports persistent ADHD symptoms, which are affecting daily tasks. - Concerta was previously tried but caused anxiety and breathing problems. - Vyvanse was not effective for ADHD symptoms. Plan: - Monitor the effect of increased Bupropion XL on ADHD symptoms. - Reevaluate in one month to consider alternative ADHD medications if necessary. 3. Anxiety and Depression: - Patient is currently stable on Sertraline 100 mg daily. Plan: - Continue Sertraline 100 mg daily. - Monitor for any changes in anxiety or depression symptoms during follow-up visits. 4. Follow-up: - Schedule a follow-up appointment in one month to assess the effectiveness of the increased Bupropion XL dosage and to monitor ADHD, anxiety, and depression symptoms. 09/07/2023 Binge eating disorder (ICD-10 - F50.81) 1. Major Depressive Disorder: - Patient reports feeling good on current medications, with no concerns for depression or anxiety. - Continue bupropion XL 300 mg daily. - Continue sertraline 100 mg daily. 2. Binge Eating Disorder: - Patient reports stable eating habits, with no recent episodes of binging. Plan: - Continue monitoring and addressing in therapy. 3. ADHD Combined Type: - Patient reports ongoing symptoms, including lack of focus, impulsivity, and hyper-fixation. - Previous trials of Concerta and atomoxetine had side effects or were discontinued. Plan: - Start Qelbree 200 mg daily, with potential for dose adjustment based on patient's sensitivity and response. - Prior authorization required; provide patient with samples to begin treatment. - Encourage patient to discuss impulsive behaviors with their therapist. 4. Anxiety: - Patient reports no current anxiety issues on bupropion and sertraline. Plan: - Monitor for potential anxiety related to ADHD medications. Follow-up: - Schedule a follow-up appointment in one month to assess the patient's response to Qelbree and overall mental health status. 08/09/2023 Generalized anxiety disorder (ICD-10 - F41.1) 1. Binge Eating Disorder: - Patient reports improvement in binge eating symptoms, possibly due to counseling and seeing a exhaust emissions automotive technician specializing in eating disorders. - Bupropion XL 150 mg daily was initiated for binge eating, but the patient is unsure of its effectiveness. Plan: - Increase Bupropion XL to 300 mg daily. - Continue counseling and exhaust emissions automotive technician visits. - Reevaluate in one month. 2. ADHD: - Patient reports persistent ADHD symptoms, which are affecting daily tasks. - Concerta was previously tried but caused anxiety and breathing problems. - Vyvanse was not effective for ADHD symptoms. Plan: - Monitor the effect of increased Bupropion XL on ADHD symptoms. - Reevaluate in one month to consider alternative ADHD medications if necessary. 3. Anxiety and Depression: - Patient is currently stable on Sertraline 100 mg daily. Plan: - Continue Sertraline 100 mg daily. - Monitor for any changes in anxiety or depression symptoms during follow-up visits. 4. Follow-up: - Schedule a follow-up appointment in one month to assess the effectiveness of the increased Bupropion XL dosage and to monitor ADHD, anxiety, and depression symptoms. 11/05/2023 Binge eating disorder (ICD-10 - F50.81) 1. Breathing problems related to medication: - The patient reported experiencing breathing problems after taking stimulant medications. The exact cause is unclear, but it may be related to anxiety or OCD. Plan: - Discontinue the use of stimulant medications for now. - Monitor the patient's breathing issues and consider alternative treatments if necessary. 2. Anxiety: - The patient reported increased anxiety, possibly related to school and the use of bupropion XL 300. Plan: - Decrease the bupropion XL dosage to 150 mg daily. - Monitor the patient's anxiety levels and adjust the medication as needed. - Encourage the patient to continue therapy sessions to address anxiety and potential OCD symptoms. 3. Depression: - The patient is currently on sertraline 100 mg for depression management. Plan: - Refill the sertraline prescription. - Monitor the patient's mood and adjust the medication as needed. 4. Follow-up: - Schedule a follow-up appointment in three months to assess the patient's progress and medication effectiveness. - Instruct the patient to contact the clinic if they experience any issues with the lower dose of bupropion or if their mood worsens. 04/24/2024 Major depressive disorder, recurrent, mild (ICD-10 - F33.0) sertraline 100mg daily, bupropion xl 150mg daily 10/05/2023 Binge eating disorder (ICD-10 - F50.81) 1. Major Depressive Disorder: - Patient reports no current depressive symptoms and is stable on bupropion XL 300mg and sertraline 100mg. Plan: - Continue bupropion XL 300mg daily and sertraline 100mg daily. - Monitor for any changes in mood or depressive symptoms. 2. Anxiety: - Patient reports anxiety is manageable and not causing significant distress. Plan: - Continue current medications and monitor for any changes in anxiety levels. 3. ADHD: - Patient experienced insomnia with Qelbree 200mg and wishes to discontinue it. Previous trials of stimulants resulted in breathing problems or sleep disturbances. Plan: - Discontinue Qelbree 200mg. - Start Jornay 20mg at bedtime for ADHD symptoms. - Monitor for effectiveness and any side effects. - Follow up in one month to assess response to Jornay 20mg. 4. Medication management: - Patient is currently on bupropion XL 300mg, sertraline 100mg, and will start Journay 20mg. Plan: - Monitor for any potential drug interactions or side effects. - Follow up in one month to assess medication effectiveness and tolerability. 02/22/2024 Binge eating disorder, mild (ICD-10 - F50.810) stable 1. Anxiety: - Patient reports increased anxiety, possibly related to compounded tirzepatide injections. - Currently on sertraline 100 mg daily. Plan: - Increase sertraline to 150 mg daily. - Reevaluate the patient's anxiety levels in 6 weeks. 2. Depression: - Patient is currently on bupropion XL 150 mg daily, which seems to be working well for depression management. Plan: - Continue bupropion XL 150 mg daily. 3. Weight management: - Patient is on compounded tirzepatide injections for weight management, as prescribed by their fur coat sewer . - Patient reports nausea and anxiety as side effects. Plan: - Encourage the patient to discuss side effects with their fur coat sewer . - Monitor the patient's weight and overall well-being during follow-up visits. Follow-up: - Schedule a follow-up appointment in 6 weeks to assess the patient's anxiety levels and overall well-being. 04/24/2024 Attention-deficit hyperactivity disorder, combined type (ICD-10 - F90.2) symptoms manageable 11/05/2023 Generalized anxiety disorder (ICD-10 - F41.1) 1. Breathing problems related to medication: - The patient reported experiencing breathing problems after taking stimulant medications. The exact cause is unclear, but it may be related to anxiety or OCD. Plan: - Discontinue the use of stimulant medications for now. - Monitor the patient's breathing issues and consider alternative treatments if necessary. 2. Anxiety: - The patient reported increased anxiety, possibly related to school and the use of bupropion XL 300. Plan: - Decrease the bupropion XL dosage to 150 mg daily. - Monitor the patient's anxiety levels and adjust the medication as needed. - Encourage the patient to continue therapy sessions to address anxiety and potential OCD symptoms. 3. Depression: - The patient is currently on sertraline 100 mg for depression management. Plan: - Refill the sertraline prescription. - Monitor the patient's mood and adjust the medication as needed. 4. Follow-up: - Schedule a follow-up appointment in three months to assess the patient's progress and medication effectiveness. - Instruct the patient to contact the clinic if they experience any issues with the lower dose of bupropion or if their mood worsens. 10/05/2023 Generalized anxiety disorder (ICD-10 - F41.1) 1. Major Depressive Disorder: - Patient reports no current depressive symptoms and is stable on bupropion XL 300mg and sertraline 100mg. Plan: - Continue bupropion XL 300mg daily and sertraline 100mg daily. - Monitor for any changes in mood or depressive symptoms. 2. Anxiety: - Patient reports anxiety is manageable and not causing significant distress. Plan: - Continue current medications and monitor for any changes in anxiety levels. 3. ADHD: - Patient experienced insomnia with Qelbree 200mg and wishes to discontinue it. Previous trials of stimulants resulted in breathing problems or sleep disturbances. Plan: - Discontinue Qelbree 200mg. - Start Jornay 20mg at bedtime for ADHD symptoms. - Monitor for effectiveness and any side effects. - Follow up in one month to assess response to Jornay 20mg. 4. Medication management: - Patient is currently on bupropion XL 300mg, sertraline 100mg, and will start Journay 20mg. Plan: - Monitor for any potential drug interactions or side effects. - Follow up in one month to assess medication effectiveness and tolerability. 09/07/2023 Generalized anxiety disorder (ICD-10 - F41.1) 1. Major Depressive Disorder: - Patient reports feeling good on current medications, with no concerns for depression or anxiety. - Continue bupropion XL 300 mg daily. - Continue sertraline 100 mg daily. 2. Binge Eating Disorder: - Patient reports stable eating habits, with no recent episodes of binging. Plan: - Continue monitoring and addressing in therapy. 3. ADHD Combined Type: - Patient reports ongoing symptoms, including lack of focus, impulsivity, and hyper-fixation. - Previous trials of Concerta and atomoxetine had side effects or were discontinued. Plan: - Start Qelbree 200 mg daily, with potential for dose adjustment based on patient's sensitivity and response. - Prior authorization required; provide patient with samples to begin treatment. - Encourage patient to discuss impulsive behaviors with their therapist. 4. Anxiety: - Patient reports no current anxiety issues on bupropion and sertraline. Plan: - Monitor for potential anxiety related to ADHD medications. Follow-up: - Schedule a follow-up appointment in one month to assess the patient's response to Qelbree and overall mental health status. 04/24/2024 Generalized anxiety disorder (ICD-10 - F41.1) 04/24/2024 Binge eating disorder, mild (ICD-10 - F50.810) stable 04/24/2024 Other 1. Generalized Anxiety Disorder: - Patient reports significant improvement in anxiety symptoms since last visit in February when sertraline was increased to 150 mg daily. - Denies any side effects from the current medication regimen. - Combination of sertraline 150 mg daily and bupropion XL 150 mg daily appears effective. 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 - Currently pursuing formal diagnosis for POTS. - Symptom previously attributed to anxiety, may be related to connective tissue disorder. Plan: - Encourage patient to continue pursuing formal POTS diagnosis - Reassess symptoms at next follow-up 3. Medication Management: - Patient taking compounded tirzepatide with no notable mood changes. - Also taking Savella, which was refilled. - No concerns or side effects reported with current medication regimen. Plan: - Continue current medication regimen including compounded tirzepatide and Savella - Monitor for any mood changes or side effects - Ensure patient obtains refills as needed Plan Of Treatment Pending Test Test Name Order Date UDT 08/09/2023 Next Appt Details Provider Name:Dallas nix, 08/21/2024 09:30:00 AM, [address], [facility], [place], [address], Insurance Providers Payer Name Payer Address Payer Phone Subscriber Number Group Number Insured Name Patient Relationship to Insured Coverage Start Date Coverage End Date [employer] [employer] [address] [place] [address] [id number] CRYSTAL HUMMEL Self - patient is the insured 4 [employer] [address] [place] [address] [id number] CRYSTAL HUMMEL Self - patient is the insured 5 Medical (General) History Medical History History ICD Code Problems: Attention deficit hyperactivit y disorder, combined type Binge eating disorder Generalized anxiety disorder 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
[2024-05-29 14:26] LABS: Hemoglobin A1C 4.9 % (<5.7)
[2024-05-29 14:28] LABS: Alanine Aminotransferase 13 U/L (6-35); Albumin Level 4.7 g/dL (3.5-5.1); Alkaline Phosphatase 60 U/L (38-126); Anion Gap 10 mmol/L (4-12); Aspartate Amino Transferase 19 U/L (14-36); Bilirubin,Total 0.5 mg/dL (0.2-1.3); Blood Urea Nitrogen 16 mg/dL (7-17); Calcium 9.5 mg/dL (8.4-10.2); Carbon Dioxide 25 mmol/L (22-30); Chloride 103 mmol/L (98-107); Cholesterol 219 mg/dL (0-200); Estimated Glomerular Filt Rate > 60; Glucose 99 mg/dL (65-110); HDL Direct 63 mg/dL; Potassium 3.9 mmol/L (3.4-5.0); Sodium 138 mmol/L (137-145); Triglycerides 70 mg/dL (<150)
[2024-05-29 14:40] LABS: LDL Cholesterol Direct 109 mg/dL
[2024-05-29 14:54] LABS: Vitamin D 25 Hydroxy 53.1 ng/mL
== END 2024-05-29 13:00 | disposition home or self-care (01) ==
LOC: ANHLAB 13:00
PROVIDERS: PCP Internal Medicine; Visit Provider Clinical Nurse Specialist
DX: E55.9 Vitamin D deficiency, unspecified (principal); E53.8 Deficiency of other specified B group vitamins; Q79.60 Ehlers-Danlos syndrome, unspecified; R51.9 Headache, unspecified; F90.9 Attention-deficit hyperactivity disorder, unspecified type; I10 Essential (primary) hypertension; R00.0 Tachycardia, unspecified; M25.562 Pain in left knee
CPT/HCPCS: 36415; 73562; 80053; 80061; 82306; 83036; 84443; 85025

== ENCOUNTER 2024-06-27 15:24 | Outpatient (CLI) | payer BC, SELFPAY ==
--- NOTE | ~2024-06-27 | XR_ITS ---
XR abdomen/kub 1V 06/27/2024 15:35 Indication: Renal stones Procedure: KUB Comparison: 12/22/2023 Findings: There are stones in the lower pole of the left kidney. There are pelvic phleboliths which a re unchanged bowel gas pattern nonobstructive. Moderate colonic fecal loading. No evidence for organo megaly. No acute osseous abnormality. Impression: 1: Left nephrolithiasis. Reviewed, dictated and finalized at location A. Impression: 1: Left nephrolithiasis.
== END 2024-06-27 15:25 | disposition home or self-care (01) ==
LOC: MICIMG 15:26
PROVIDERS: PCP Internal Medicine; Visit Provider Urology
DX: N20.0 Calculus of kidney (principal)
CPT/HCPCS: 74018

== ENCOUNTER 2024-07-31 08:02 | Outpatient (CLI) | payer BC, SELFPAY ==
--- NOTE | ~2024-07-31 | MR_ITS ---
MRI of the left knee Clinical history: Pain Technique: Coronal proton density and proton density-weighted images, sagittal proton-density and T2 fat-sat images, and axial proton-density fat-saturated images were acquired. Findings: Anterior and posterior cruciate ligaments are intact. Medial collateral ligament and the la teral collateral ligament complex are intact. Popliteus tendon intact. Medial and lateral menisci are intact, without evidence of tear. There is focal mild to moderate chondral malacia the medial femoral condyle with minimal reactive sub chondral marrow edema. Remaining articular cartilage and bone marrow signals are unremarkable. Extensor mechanism is intact. No significant joint effusion or Velasquez's cyst. Impression: Focal moderate chondromalacia the medial femoral condyle with minimal reactive subchondral marrow jareth ma. Reviewed, dictated and finalized at [facility]. Impression: Focal moderate chondromalacia the medial femoral condyle with minimal reactive subchondral marrow edema.
== END 2024-07-31 08:03 | disposition home or self-care (01) ==
LOC: MICIMG 08:03
PROVIDERS: PCP Internal Medicine; Visit Provider Clinical Nurse Specialist
DX: M94.262 Chondromalacia, left knee (principal); M23.52 Chronic instability of knee, left knee
CPT/HCPCS: 73721

== ENCOUNTER 2024-09-15 05:45 | Emergency (ER) | payer BC, SELFPAY ==
--- NOTE | ~2024-09-15 | XR_ITS ---
XR abdomen/kub 1V 09/15/2024 08:15 Indication: Flank pain Procedure: KUB Comparison: 06/27/2024 Findings: Bowel gas pattern nonobstructive. Moderate colonic fecal loading. There are pelvic phleboli ths. There is left nephrolithiasis. No acute osseous abnormality. Impression: 1: Left nephrolithiasis. Reviewed, dictated and finalized at location [] Impression: 1: Left nephrolithiasis.
--- NOTE | ~2024-09-15 | CT_ITS ---
CLINICAL INDICATION: Left flank pain COMPARISON: 11/10/2023. TECHNIQUE: Multiple contiguous axial images of the abdomen and pelvis were performed without the admi nistration of intravenous contrast The dose-length product (DLP) was 359.35 mGy-cm. Automated exposure control and iterative reconstruction technique were employed. FINDINGS/OBSERVATIONS: Visualized lower thorax: Calcified 1 mm nodule within the right lobe suggesting prior granulomatous disease. Additional 5.3 mm nodule within the right lower lobe (axial series, image 1) without calcifications w hich follow-up as per Fleischner guidelines is recommended. The remainder of the bilateral lung hightower are clear. The heart is of normal size, without pericardial effusion. Small hiatal hernia is present. Liver: The liver demonstrates homogeneous attenuation and is not enlarged. Gallbladder and biliary system: The gallbladder is distended, and otherwise unremarkable. Pancreas: Limited evaluation of the pancreas secondary to the lack of intravenous contrast. Spleen: The spleen demonstrates homogeneous attenuation and is not enlarged. Kidneys: Left-sided hydroureteronephrosis. Two stones are identified within the left renal pelvis. No discrete obstructing stone is visualized along the course of the left ureter, to the bladder. Multiple 1 and 2 mm calculi are detected within the left hemipelvis although none with discrete obstr uctive appearance. The stones within the left renal pelvis measure 8 mm and 4 mm. The right kidney is unremarkable. Adrenal glands: Unremarkable. Gastrointestinal tract: Fecal stasis within the colon. Appendix: The appendix is not definitively visualized. However, no pericecal inflammatory change is identified suggest the presence of acute appendicitis. Vasculature: Unremarkable. Lymph nodes: Limited evaluation without intravenous contrast. Pelvic structures: The bladder is decompressed, limiting its evaluation. The uterus is anteverted and anteflexed, and otherwise unremarkable. Body wall and musculoskeletal: Small fat-containing umbilical hernia. No significant degenerative disease within the lower thoracic or lumbosacral spine. IMPRESSION: Two stones within the left renal hydroureteronephrosis. These possibly have a ball-valve effect as no discrete stone is visualized along the left ureter. Reviewed, dictated and finalized at location A. IMPRESSION: Two stones within the left renal hydroureteronephrosis. These possibly have a b all-valve effect as no discrete stone is visualized along the left ureter.
--- OUTSIDE RECORDS SUMMARY | 2024-09-15 05:47 | XMS_ITS ---
Author Organization [facility] Address [address] [place] [address] Care Team Providers Care Informatics Developer Name Role Phone Britt Ham [phone] REASON FOR VISIT vivian Encounters Encounter Location Date Provider Diagnosis [facility] - Britt Ham [address] [place] [address] 04/03/2024 Britt Ham Plan Of Treatment No Information Progress Notes * Tiera HUMMELDOB: [birth year] (38 yo F)Acc No.[id number]:04/03/2024 Progress Notes Patient: Tiera OTERO Provider: Zuleima Ham MD :1985 A ge:38 Y S ex:Female Date:04/03/2024 Address:[address] [place] [address] [facility] Subjective: * Chief Complaints: * 1 . vivian. * Medical History: Objective: * Vitals: Assessment: Plan: * Treatment: * Billing Information: * Visit Code: * Procedure Codes: * Electronic signature of Clyde Ham MD on 09/15/2024 at 05:47 AM CDT Sign off status: Pending * Provider: Zuleima Ham MD Date: 04/03/2024 Generated for Rodolfo raphael/Vern/eTransmitting on: 0 09/15/2024 05:47 AM CDT
--- OUTSIDE RECORDS SUMMARY | 2024-09-15 05:47 | XMS_ITS ---
Author Organization [facility] Address [address] [place] [phone] Care Team Providers Care Software Sales Representative Name Role Phone Britt Ham Unavailable [phone] REASON FOR VISIT Lab FU Encounters Encounter Location Date Provider Diagnosis AMMO Dr. Ham [address] [place] [phone] 07/14/2024 Britt Ham Plan Of Treatment Next Appt Details Provider Name:Britt Ham, 03:20:00 PM, [address] [place] [address], [phone], Progress Notes * Tiera HUMMELDOB: [birth year] (38 yo F)Acc No.[id number]:07/14/2024 Progress Notes Patient: Tiera Russell Provider: Zuleima Ham MD :1985 A ge:38 Y S ex:Female Date:07/14/2024 Address:[address] [place] [address] [facility] Subjective: * Chief Complaints: * L ab FU * Electronic signature of Clyde Ham MD on 09/15/2024 at 05:47 AM CDT Sign off status: Pending * Provider: Zuleima Ham MD Date: 07/14/2024 Generated for Rodolfo raphael/Vern/eTransmitting on: 0 09/15/2024 05:47 AM CDT
--- OUTSIDE RECORDS SUMMARY | 2024-09-15 05:47 | XMS_ITS | Encounter Summary ---
Author Organization [facility] Address [address] [place] [address] Care Team Providers Care Co Supervisor Grounds And Landscape Name Role Phone Staci Lr NP Primary Care Provider Encounter Details Date Type Department Care Team (Late st Contact Info) Description 09/13/2024 Results Follow-Up [facility] at [address] [address] Jennifer Francisco NP [address] [place] [address] [address] [place], [place] [phone] Urine culture Urine, clean voided Social History Tobacco Use Types Packs/Day Years Used Date Smoking Tobacco: Never Smokeless Tobacco: Never Comments Unknown Sex and Gender Information Value Date Recorded Sex Assigned at Not on file Legal Sex Female 4:32 PM CDT Gender Identity Female 06/23/2022 8:25 AM CDT Sexual Orientation Straight 06/23/2022 8: 25 AM CDT documented as of this encounter Ordered Prescriptions Prescription Sig Dispense Quantity Refills Last Filled Start Date End Date nitrofurantoin monohydrate (MACROBID) 100 mg capsule Take 1 capsule (100 mg total) by mouth 2 (two) times a day for 5 days 10 capsule 09/13/2024 documented in this encounter Miscellaneous Notes * Result Encounter Note - Kady Hou LPN - 09/13/2024 9:07 AM CDT Notified pt of their results and follow up instructions. Pt verbalized understanding. documented in this encounter Plan of Treatment Not on file documented as of this encounter Visit Diagnoses Not on filedocumented in this encounter Additional Health Concerns Infection Onset Date Last Indicated Resolved Time MDR gram neg/ESBL 09/10/2024 09/10/2024 documented as of this encounter Care Teams Co Supervisor Grounds And Landscape Relationship Specialty Start Date End Date Staci Lr NP [address] [place] [address] PCP - General Cardiovascular Disease 07/18/24 documented as of this encounter
--- OUTSIDE RECORDS SUMMARY | 2024-09-15 05:47 | XMS_ITS | Clinical Summary ---
Author Organization [facility] Address [address] [place] [address] Phone Care Team Providers Care Laborer Construction Or Leak Gang Name Role Phone Unavailable Primary Care Provider [...] time each day 45 tablet 3 09/07/2023 Active Active Problems Problem Noted Date Diagnosed Date Nephrolithiasis 09/21/2022 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 Encounters Date Type Department Care Team Description 08/01/2024 Telephone [facility] [address] [place] [address] Sarai Lin MA 07/12/2024 Orders Only [facility] [address] [place] [address] Moni Tello MA Nephrolithiasis (Primary Dx) 07/05/2024 Orders Only [facility] [address] [place] [address] Moni Tello MA Nephrolithiasis (Primary Dx) from Last 3 Months Immunizations Immunization Administration Dates Next Due PPD [...] 9:07 AM CDT Height 160 cm (5' 3) 09/07/2023 9:07 AM CDT Body Mass Index 33.13 09/07/2023 9:07 AM CDT Plan of Treatment Health Maintenance Due Date Last Done Comments Pneumococcal PPSV23 Highest Risk Adult (1 of 3 - PCV13) 12/14/2003 COVID-19 Vaccine (2 - season) 10/17/202304/2020 Influenza Vaccine (#1) 2024 Insurance [id number] [facility] [place] [id number] [facility])
--- OUTSIDE RECORDS SUMMARY | 2024-09-15 05:47 | XMS_ITS | Clinical Summary ---
Author Organization [facility] Address [address] [place] [address] Care Team Providers Care Pack Out Operator Name Role Phone Unavailable Primary Care Provider Unavailabl e Immunizations Immunization Administration Dates Next Due Covid-19, Mrna, Lnp-s, Pf, 30 Mcg/0.3 Ml Dose (P fizer) 01/17/2021 Social History Tobacco Use Types Packs/Day Years Used Date Smoking Tobacco: Never Assessed Comments Unknown Sex and Gender Information Value Date Recorded Sex Assigned at Not on file Legal Sex Female 4:04 PM TOBACCO SHAKER Gender Identity Not on file Sexual Orientation Not on file Plan of Treatment Health Maintenance Due Date Last Done Comments Hepatitis C Virus (HCV) Screening 1985 Human Papillomavirus (HPV) Immunization (1 - 3-dose series) 12/14/1999 Pap Smear 2005 Cervical Cancer Screening (CCS) 2014 HPV/Cotest 2014 Hepatitis B Immunization (2 of 3 - 19+ 3-dose series) 03/25/2018 02/25/2018 SARS-COV-2 Immunization ( season) 2023 01/17/2021, 05/04/2020, 04/13/2020 Influenza Immunization (#1) 10/16/202403/18, 12/07/2017 Respiratory Syncytial Virus (RSV) Immunization (Adult) (1 [...]
--- OUTSIDE RECORDS SUMMARY | 2024-09-15 05:47 | XMS_ITS | Encounter Summary ---
Author Organization [facility] Address [address] [place] [address] Care Team Providers Care Search Marketing Analyst Name Role Phone Lola Ross MD Primary Care Provider [phone] Encounter Details Date Type Department Care Team (Late st Contact Info) Description 02/04/2004 [facility] Tony Solorzano [facility] [address] [place] [address] Ricki Robertson MD [address] [address] RENAL & URETERAL DIS NOS (Primary Dx) Social History Tobacco Use Types Packs/Day Years Used Date Smoking Tobacco: Never Assessed Comments Unknown Sex and Gender Information Value Date Recorded Sex Assigned at Not on file Legal Sex Female 3:13 AM PEDIATRIC INTENSIVE PHYSICIAN Gender Identity Not on file Sexual Orientation Not on file documented as of this encounter Plan of Treatment Not on file documented as of this encounter Visit Diagnoses Diagnosis Unspecified disorder of kidney and ureter- Primary documented in this encounter Care Teams Search Marketing Analyst Relationship Specialty Start Date End Date Lola Ross MD PCP - General Family Practice 11/05/20 documented as of this encounter
--- OUTSIDE RECORDS SUMMARY | 2024-09-15 05:48 | XMS_ITS | Clinical Summary ---
Author Organization [facility] Address [address] [place] [address] Care Team Providers Care Bladder Tier Name Role Phone Lola Ross MD Primary Care Provider [phone] Allergies Active Allergy Reactions Criticality Noted Date [...] on file Legal Sex Female 3:13 AM DIRECTOR FAMILY Gender Identity Not on file Sexual Orientation [...] P M CDT Height 160 cm (5' 3) 05/29/2021 3:01 PM CDT Body Mass Index 27.67 05/29/2021 3:01 PM CDT Plan of Treatment Health Maintenance Due Date Last Done Comments HPV VACCINES (1 - 3-dose series) 12/14/1999 HEPATITIS B VACCINES (1 of 3 - 19+ 3-dose series) 11/1602/25/2018 HPV/Cotest (21-29) 2005 CERVICAL CANCER SCREENING 2014 HPV/Cotest (30-65) 2014 PAP SMEAR 2014 COVID-19 Vaccine (2 - 2023- season) 10/17/202304/2020 INFLUENZA VACCINE (#1) 2024 12/07/2017 DTAP/TDAP/TD VACCINES (2 - Td or Tdap) 02/26/2028 Insurance Active-Semi BLUE ACCESS/TRUE BLUE PPO Care Teams Bladder Tier Relationship Specialty Start Date End Date Lola Ross MD PCP - General Family Practice 11/05/20
--- OUTSIDE RECORDS SUMMARY | 2024-09-15 05:48 | XMS_ITS | Patient Health Record ---
Author Organization [facility] Address [address] [address] Care Team Providers Care Business Continuity Management Director Name Role Phone Britt Ham Unavailable [phone] Migration, Provider Unavailable Unavailable Ivania Veronica Unavailable [phone] Allergies No Known Allergies Results Component Value Reference Range Flag Notes COMPREHENSIVE METABOLIC PANE L Reviewed date:10/13/2023 02:18:02 PM Interpretation: Performing Lab:[place], [facility], [address] [place], [address] FedericaMaria E Sethi MD Notes/Report: FASTING:YES FASTING: YES Fasting reference interval Not Reported: BUN and Creatinine are within reference range. GLUCOSE 91 65-99 mg/dL N UREA NITROGEN (BUN) 20 7-25 mg/dL N CREATININE 0.96 0.50-0.97 mg/dL N EGFR 78 > OR = 60 mL/min/1.73m2 N BUN/CREATININE RATIO SEE NOTE: 6-22 (calc) SODIUM 135 135-146 mmol/L N POTASSIUM 3.8 3.5-5.3 mmol/L N CHLORIDE 102 98-110 mmol/L N CARBON DIOXIDE 24 20-32 mmol/L N CALCIUM 9.5 8.6-10.2 mg/dL N PROTEIN, TOTAL 7.4 6.1-8.1 g/dL N ALBUMIN 4.4 3.6-5.1 g/dL N GLOBULIN 3.0 1.9-3.7 g/dL (calc) N ALBUMIN/GLOBULIN RATIO 1.5 1.0-2.5 (calc) N BILIRUBIN, TOTAL 0.4 0.2-1.2 mg/dL N ALKALINE PHOSPHATASE 68 31-125 U/L N AST 13 10-30 U/L N ALT 11 6-29 U/L N ACTH, PLASMA Reviewed date:10/20/2023 09:33:54 PM Interpretation: Performing Lab:[facility], [address], [place], [address] Garry Metz M.D.,PhD Notes/Report: FASTING:YES FASTING: YES Reference range applies only to specimens collected between 7am-10am. ACTH, PLASMA 15 6-50 pg/mL DEXAMETHASONE Reviewed date:11/29/2023 12:36:19 PM Interpretation: Performing Lab:[facility],, [address] [place], [address] Ambreen Ramsey MD,PhD,[facility] Notes/Report: for clinical purposes. been validated pursuant to the CLIA regulations and is used It has not been cleared or approved by FDA. This assay has characteristics have been determined by [facility]. This test was developed and its analytical performance 1 mg dexamethasone overnight: 180-550 ng/dL (8:00-10:00 AM) Baseline: Less than 20 ng/dL Reference Ranges for Dexamethasone: DEXAMETHASONE 168 T3, FREE Reviewed date:10/13/2023 02:18:02 PM Interpretation: Performing Lab:[facility], [address] [address] [facility] [place], [address] Gurvinder Sethi MD Notes/Report: FASTING: YES FASTING:YES T3, FREE 3.6 2.3-4.2 pg/mL N CORTISOL, TOTAL Reviewed date:10/13/2023 02:18:02 PM Interpretation: Performing Lab:[facility], [address] [place], [address] Gurvinder Sethi MD Notes/Report: Reference Range: For 8 a.m.(7-9 a.m.) Specimen: 4.0-22.0 * Please interpret above results accordingly * Reference Range: For 4 p.m.(3-5 p.m.) Specimen: 3.0-17.0 FASTING: YES FASTING:YES CORTISOL, TOTAL 24.5 H CORTISOL, TOTAL Reviewed date:11/21/2023 08:48:03 PM Interpretation: Performing Lab:[facility], [address] [place], [address] Gurvinder Sethi MD Notes/Report: Reference Range: For 8 a.m.(7-9 a.m.) Specimen: 4.0-22.0 Reference Range: For 4 p.m.(3-5 p.m.) Specimen: 3.0-17.0 * Please interpret above results accordingly * CORTISOL, TOTAL 0.9 L DHEA SULFATE Reviewed date:10/13/2023 02:18:02 PM Interpretation: Performing Lab:[facility], [address] [place], [address] Gurvinder Sethi MD Notes/Report: FASTING:YES FASTING: YES DHEA SULFATE 182 19-237 mcg/dL N ESTRADIOL Reviewed date:10/13/2023 02:18:02 PM Interpretation: Performing Lab:[facility] [address] [place], [address] Gurvinder Sethi MD Notes/Report: FASTING:YES FASTING: YES Reference Range Follicular Phase: 19-144 Mid-Cycle: 64-357 Luteal Phase: 56-214 Postmenopausal: < or = 31 Reference range established on post-pubertal patient population. No pre-pubertal reference range established using this assay. For any patients for whom low Estradiol levels are anticipated (e.g. males, pre-pubertal children and hypogonadal/post-menopausal females), the [facility] Estradiol, Ultrasensitive, LCMSMS assay is recommended (order code 82422). Please note: patients being treated with the drug fulvestrant (Faslodex(R)) have demonstrated significant interference in immunoassay methods for estradiol measurement. The cross reactivity could lead to falsely elevated estradiol test results leading to an inappropriate clinical assessment of estrogen status. [facility] order code [id number], Ultrasensitive LC/MS/MS demonstrates negligible cross reactivity with fulvestrant. ESTRADIOL 160 N FSH Reviewed date:10/13/2023 02:18:02 PM Interpretation: Performing Lab:[facility], [address] [place], [address] Gurvinder Sethi MD Notes/Report: FASTING:YES FASTING: YES Reference Range Follicular Phase 2.5-10.2 Mid-cycle Peak 3.1-17.7 Luteal Phase 1.5- 9.1 Postmenopausal 23.0-116.3 FSH 1.9 N INSULIN Reviewed date:10/13/2023 02:18:02 PM Interpretation: Performing Lab:[facility], [address] [place], [address] Gurvinder Sethi MD Notes/Report: FASTING:YES FASTING: YES Reference Range < or = 18.4 Risk: Optimal < or = 18.4 Moderate NA High >18.4 Adult cardiovascular event risk category cut points (optimal, moderate, high) are based on Insulin Reference Interval studies performed at [facility] in 2021. INSULIN 13.6 N LH Reviewed date:10/13/2023 02:18:02 PM Interpretation: Performing Lab:[facility], [address] [place], [address] Gurvinder Sethi MD Notes/Report: FASTING:YES FASTING: YES Reference Range Follicular Phase 1.9-12.5 Mid-Cycle Peak 8.7-76.3 Luteal Phase 0.5-16.9 Postmenopausal 10.0-54.7 LH 3.0 N CBC (INCLUDES DIFF/PLT) Reviewed date:10/13/2023 02:18:02 PM Interpretation: Performing Lab:[facility], [address] [place], [address] Gurvinder Sethi MD Notes/Report: FASTING:YES FASTING: YES WHITE BLOOD CELL COUNT 5.8 3.8-10.8 Thousand/uL N RED BLOOD CELL COUNT 4.63 3.80-5.10 Million/uL N HEMOGLOBIN 13.8 11.7-15.5 g/dL N HEMATOCRIT 42.2 35.0-45.0 % N MCV 91.1 80.0-100.0 fL N MCH 29.8 27.0-33.0 pg N MCHC 32.7 32.0-36.0 g/dL N RDW 12.4 11.0-15.0 % N PLATELET COUNT 252 140-400 Thousand/uL N MPV 10.2 7.5-12.5 fL N ABSOLUTE NEUTROPHILS [phone] cells/uL N ABSOLUTE LYMPHOCYTES 2007 850-3900 cells/uL N ABSOLUTE MONOCYTES 626 200-950 cells/uL N ABSOLUTE EOSINOPHILS 110 15-500 cells/uL N ABSOLUTE BASOPHILS 52 0-200 cells/uL N NEUTROPHILS 51.8 N LYMPHOCYTES 34.6 N MONOCYTES 10.8 N EOSINOPHILS 1.9 N BASOPHILS 0.9 N PROGESTERONE Reviewed date:10/13/2023 02:18:02 PM Interpretation: Performing Lab:[facility], [address] [place], [address] Gurvinder Sethi MD Notes/Report: FASTING:YES FASTING: YES Reference Ranges Female Follicular Phase < 1.0 Luteal Phase 2.6-21.5 Post menopausal < 0.5 1st Trimester 4.1-34.0 2nd Trimester 24.0-76.0 3rd Trimester 52.0-302.0 PROGESTERONE 7.2 N PROLACTIN Reviewed date:10/13/2023 02:18:02 PM Interpretation: Performing Lab:[facility], [address] [place], [address] Gurvinder Sethi MD Notes/Report: FASTING:YES FASTING: YES Reference Range Females Non- 3.0-30.0 10.0-209.0 Postmenopausal 2.0-20.0 PROLACTIN 5.8 N IRON AND TOTAL IRON BINDING CAPACITY Reviewed date:10/13/2023 02:18:02 PM Interpretation: Performing Lab:[facility], [place], [address] Gurvinder Sethi MD Notes/Report: FASTING:YES FASTING: YES IRON, TOTAL 76 40-190 mcg/dL N IRON BINDING CAPACITY 346 250-450 mcg/dL (calc) N % SATURATION 22 16-45 % (calc) N T4, FREE Reviewed date:10/13/2023 02:18:02 PM Interpretation: Performing Lab:[facility], [address] [place], [address] Gurivnder Sethi MD Notes/Report: FASTING:YES FASTING: YES T4, FREE 1.2 0.8-1.8 ng/dL N TSH Reviewed date:10/13/2023 02:18:02 PM Interpretation: Performing Lab:[place], [facility], [address] [place], [address] Gurvinder Sethi MD Notes/Report: FASTING:YES FASTING: YES Reference Range > or = 20 Years 0.40-4.50 Ranges First trimester 0.26-2.66 Second trimester 0.55-2.73 Third trimester 0.43-2.91 TSH 1.93 N TESTOSTERONE, FREE (DIALYSIS ) AND TOTAL,MS Reviewed date:10/20/2023 09:33:54 PM Interpretation: Performing Lab:[facility], [facility] [address], [address], [place], [address] Carl Magallon MD,PhD Notes/Report: FASTING:YES FASTING: YES For additional information, please refer to https://education.Music Nation/faq/NAT681 (This link is being provided for informational/educational purposes only.) (Note) This test was developed and its analytical performance characteristics have been determined by [facility]. It has not been cleared or approved by the FDA. This assay has been validated pursuant to the CLIA regulations and is used for clinical purposes. (Note) This test was developed and its analytical performance characteristics have been determined by [facility]. It has not been cleared or approved by the FDA. This assay has been validated pursuant to the CLIA regulations and is used for clinical purposes. [facility] [address] [facility] [address] [facility] [id number] Carl Magallon MD, PhD TESTOSTERONE, TOTAL, MS 32 2-45 ng/dL TESTOSTERONE, FREE 2 0.1-6.4 pg/mL CORTISOL, FREE, 24 HOUR URIN E Reviewed date:12/12/2023 07:53:39 PM Interpretation: Performing Lab:[facility],, [address] [place], [address] Ambreen Ramsey MD,PhD,[facility] Notes/Report: FASTING:NO URINE VOLUME: 2000/NG FASTING: NO This test was developed and its analytical performance characteristics have been determined by [facility]. It has not been cleared or approved by FDA. This assay has been validated pursuant to the CLIA regulations and is used for clinical purposes. Reference Range: ADULTS: 3.1-42.3 TOTAL VOLUME 2000 CORTISOL, FREE, URINE 23.0 4.0-50.0 mcg/24 h CORTISOL, FREE, URINE 20.6 CREATININE, URINE 1.12 0.50-2.15 g/24 h Reason For Referral No Information Medications Medication SIG (Take, Route, Frequency, Duration) Notes Start Date End Date Status Ondansetron 4 MG Tablet Disintegrating 1 tablet on the tongue and allow to dissolve Orally twice daily as needed; Duration: 60 days 07/12/2024 Active Pregabalin 75 MG Capsule 1 capsule Orall y Once a day Active SUMAtriptan Succinate 50 MG Tablet 1 tablet as needed, may take second dose at least 2 hours after first dose up to 4 tablets per day as needed Orally Once a day Active Qulipta 30 MG Tablet 1 tablet Orally Onc e a day Active buPROPion HCl ER (XL) 150 MG Tablet Extended Release 24 Hour 1 tab(s) orally every 24 hours Active Pramipexole Dihydrochloride 0.5 MG Tablet 1 tab(s) orally 3 times a day Active Sertraline HCl 150 MG Capsule 1 tab(s) o rally once a day Active Ondansetron 4 MG Tablet Disintegrating 1 tablet on the tongue and allow to dissolve Orally twice daily as needed; Duration: 30 days 02/02/2024 Active Social History Section Notes: Non-Contributory Non-Contributory Non-Contributory Non-Contributory Non-Contributory Problems Problem Type SNOMED Code ICD Code Onset Dates Problem Status W/U Status Risk Notes Problem Morbid obesity (disorder) (091823771) Morbid (severe) obesity due to excess calories (E66.01) Active confirmed Problem Obesity due to excess calories (736117406) Other obesity due to excess calories (E66.09) Active confirmed Problem Overweight (601768096) Overweight (E66.3) Active confirmed Problem Obesity (089397760) Obesity, unspecified (E66.9) Active confirmed Problem 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, 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 Problem Attention deficit hyperactivity disorder (334503856) Attention-deficit hyperactivity disorder, unspecified type (F90.9) Active confirmed Problem 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 Vital Signs Heart Rate 69 /min 08/14/2024 Respiratory Rate 12 /min 02/02/2024 Oximetry 96 % 08/14/2024 Height-cm 160.02 cm 08/14/2024 Blood pressure diastolic 73 mm Hg 08/14/2024 Weight-kg 69.4 kg 08/14/2024 Height 63 in 08/14/2024 Blood pressure systolic 107 mm Hg 08/14/2024 Weight 153.0 lbs 08/14/2024 BMI 27.1 kg/m2 08/14/2024 Encounters Encounter Location Date Provider Diagnosis [address] [id number] 01/01/2024 Provider Migration [address] [address] 10/07/2023 Ivania Veronica 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 94 ; Headache, unspecified R51.9 ; Hypermobile Madhav-Danlos syndrome Q79.62 ; Dizziness and giddiness R42 ; Nausea R11.0 ; Other fatigue R53.83 ; Disorder of mineral metabolism, unspecified E83.9 ; Obesity, unspecified E66.9 ; Nonscarring hair loss, unspecified L65.9 and Encounter for screening for other suspected endocrine disorder Z13.[address] [address] 11/18/2023 Ivania Veronica Other fatigue R53.83 ; Abnormal weight gain R63.5 ; Other adrenocortical overactivity E27.0 ; Obesity, unspecified E66.9 and Hypermobile Madhav-Danlos syndrome Q79.62 [facility] Dr. Ham [address] [place] [address] 12/16/2023 Britt Ham Obesity, unspecified E66.9 and Dietary counseling and surveillance Z71.3 [facility] Dr. Ham [address] [place] [address] 01/10/2024 Britt Ham Obesity, unspecified E66.9 and Dietary counseling and surveillance Z71.[address] Ham [address] [place] [address] 02/02/2024 Britt Wood Obesity, unspecified E66.9 ; Dietary counseling and surveillance Z71.3 and Nausea R11.[address] Ham [address] [place] [address] 03/07/2024 Britt Wood Obesity, unspecified E66.9 and Dietary counseling and surveillance Z71.[address] Ham [address] [place] [address] 04/03/2024 Britt Wood Obesity, unspecified E66.9 and Dietary counseling and surveillance Z71.[address] Ham [address] [place] [address] 05/01/2024 Britt Wood Obesity, unspecified E66.9 and Dietary counseling and surveillance Z71.[address] Ham [address] [place] [address] 05/29/2024 Britt Wood Overweight E66.3 ; Hypermobile Madhav-Danlos syndrome Q79.62 and Dietary counseling and surveillance Z71.[address] Ham [address] [place] [address] 07/12/2024 Britt Wood Overweight E66.3 ; Nausea R11.0 and Dietary counseling and surveillance Z71.[address] Ham [address] [place] [address] 08/14/2024 Britt Wood Overweight E66.3 and Dietary counseling and surveillance Z71.[address] 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 - Follow up with truck loader and unloader and urologist as scheduled. - Consider repeating [...] Dietary counseling and surveillance (ICD-10 - Z71.3) 04/03/2024 Obesity, unspecified (ICD-10 - E66.9) 05/01/2024 Obesity, unspecified (ICD-10 - E66.9) 05/29/2024 Overweight (ICD-10 - E66.3) 07/12/2024 Overweight (ICD-10 - E66.3) 07/12/2024 Nausea (ICD-10 - R11.0) 08/14/2024 Overweight (ICD-10 - E66.3) 08/14/2024 Dietary counseling and surveillance (ICD-10 - Z71.3) Spent 15 minutes preventative counseling patient on dietary recommendations and changes in setting of hyperglycemia- need to restrict refined sugars and processed foods and incorporate up to 150 minutes of moderate level activity weekly. 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 04/03/2024 Dietary counseling and surveillance (ICD-10 - Z71.3) Spent 15 minutes preventative counseling patient on dietary recommendations and changes in setting of hyperglycemia- need to restrict refined sugars and processed foods and incorporate up to 150 minutes of moderate level activity weekly. 02/02/2024 Nausea (ICD-10 - R11.0) 11/18/2023 Other adrenocortical overactivity (ICD-10 - E27.0) -Excess cortisol noted on her AM fasting labs. Will screen for DST to determine if thats the causation for her weight gain, mood lability, insomnia, purple striae. 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 - Consider gabapentin for neuropathies if needed. -Consider DEXA scan given her fracture of the foot and possibility of poor bone density d/t hypercalciuria. 10/07/2023 Dizziness and giddiness (ICD-10 - R42) -Pending cards appt for r/o POTS 11/18/2023 Obesity, unspecified (ICD-10 - E66.9) 05/29/2024 Dietary counseling and surveillance (ICD-10 - Z71.3) Spent 15 minutes preventative counseling patient on dietary recommendations and changes in setting of hyperglycemia- need to restrict refined sugars and processed foods and incorporate up to 150 minutes of moderate level activity weekly. 07/12/2024 Dietary counseling and surveillance (ICD-10 - Z71.3) Spent 15 minutes preventative counseling patient on dietary recommendations and changes in setting of hyperglycemia- need to restrict refined sugars and processed foods and incorporate up to 150 minutes of moderate level activity weekly. 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 10/07/2023 Nausea (ICD-10 - R11.0) - Investigate possible causes, including hypercalciuria, POTS, and stress. - Follow up with internal medicine veterinary technician for POTS evaluation. - Monitor response to potassium citrate and other interventions. 10/07/2023 Other fatigue (ICD-10 - R53.83) 10/07/2023 [...] free T4. 10/07/2023 Other Case discussed with AIMRA C[facility]. Agree with plan. 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 Patient education- Instructed the patient [...] syringes of 5 mg tirzepatide- lot number [id number] 2. Cravings and hunger- Patient reported increased [...] weight loss process. Consider referral to a assistant passenger locomotive engineer if needed. 5. Insomnia- Patient reports no issues with sleep.- Plan: Continue to monitor sleep quality during follow-up visits. 6. Low Vitamin B12 levels- Patient's B12 levels are slightly low, which may contribute to fatigue.- Plan: Recommend a methylated B12 supplement or increased intake of T43-nnlp foods (turkey, chicken, fish). Recheck B12 levels at a future visit. 7. Lacon's screening- Patient's DST result was 0.9, indicating no Lacon's syndrome.- Plan: No further action needed at [...] prefilled 5 mg tirzepatide injections- lot number [id number] 2. Nausea related to medication- Patient experiences nausea after taking the shot on Sundays and Mondays. Occasional vomiting due to sensitive gag reflex.- Plan: Prescribe 4 mg of anti-nausea medication, allowing the patient to take up to 2 tablets twice daily as needed. Start with a 30-day supply and send the prescription to [facility] in [place]. 3. Constipation- Patient reports no significant issues [...] examination and/or evaluation, counseling and 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 Patient alert and oriented x 4 and aware of discussion noted above and in agreeance to plan in management of obesity/weight management and nausea. 03/07/2024 Other Assessment and Plan: 1. Stress fracture- Continue current management for stress fracture on one foot- Follow up with screwdown operator as needed- Monitor for improvement in gait [...] examination and/or evaluation, counseling and 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 Patient alert and oriented x 4 and aware of discussion noted above and in agreeance to plan in management of weight/obesity. 04/03/2024 Other Assessment and Plan: Weight LossPatient has achieved a weight loss of 5 pounds since the last visit, aligning with the goal of 1 pound per week, bringing the current weight to 165 lbs. The patient is over usp to their goal weight.Continue with the current weight loss regimen aiming for a target of 5 pounds per month.Encourage the maintenance of current dietary habits, including adequate intake of protein, fruits, vegetables, and fiber. Continue tirzepatide 5 mg weekly- 4 syringes provided.Schedule a follow-up visit to reassess progress and ensure continued healthy weight loss. Hair LossPatient reports recent onset of hair loss. A brain MRI was conducted, but the full report and images were not available for review during the visit. The MRI report did not identify any pituitary abnormalities, though visualization of the pituitary was limited.Plan to review the full brain MRI report and images once available to rule out any underlying causes.Consider further endocrine workup if indicated, based on the review of the MRI and ongoing symptoms. Endocrine EvaluationThe patient has undergone a dexamethasone suppression test, which returned normal results. Discussion around a 24-hour urinary cortisol test has taken place, but the test has not yet been performed.Consider ordering a 24-hour urinary cortisol test to further assess adrenal function.Review the results of the previous dexamethasone suppression test to ensure comprehensive evaluation.Monitor for any new or worsening symptoms that might suggest endocrine dysfunction, especially in the context of the patient's weight loss and hair loss. Follow-up:Encourage the patient to schedule a follow-up appointment to review the outcomes of the planned tests and assessments.Advise the patient to report any new or exacerbating symptoms promptly. Spent 15 minutes preparing to see the patient (ex review of tests/chart), obtaining and / or reviewing separately obtained history, performing a medically appropriate examination and/or evaluation, counseling and 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 Patient alert and oriented x 4 and aware of discussion noted above and in agreeance to plan in management of weight loss/dietary recommendations. DIscussed hair thinning/secondary to meds and increasing protein/collagen into diet. 05/01/2024 Other Obesity- Patient has achieved significant weight loss, losing another 5 pounds since the last visit for a total of approximately 30 pounds- Current weight is 155 lbs, down from a highest recorded weight of 191 lbs- The clinician considers 150-145 lbs to be the patient's ideal weight range Medication Management:1. Current medication plan- Continue weight loss medication (tirzepatide) for 2-3 more weeks: - Three 5 mg dose - One 2.5 mg doses 2. Alternative medication options- Consider transitioning to tirzepatide wafers if injectable form becomes unavailable: - 90 mg for $300, lasting approximately 2 months - Can be taken daily or every other day - Patient added to list for wafers- Explore semaglutide as a potential alternative if needed Follow-up:- Follow up in 2 weeks- Call the office next week for updates on medication availability Spent 20 minutes preparing to see the patient (ex review of tests/chart), obtaining and / or reviewing separately obtained history, performing a medically appropriate examination and/or evaluation, counseling and 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 Patient alert and oriented x 4 and aware of discussion noted above and in agreeance to plan in management of obesity/weight management now borderline overweight. 05/29/2024 Other Assessment and Plan: 1. Weight loss- Continue tirzepatide 5 mg (pending confirmation of reduced food noise)-given 4 prefilled B12/tirzepatide 5 mg syringes- Add B12 supplementation due to previously low B12 levels- Reassess efficacy and side effects at next visit 2. Recurrent nephrolithiasis- Continue follow-up with urologist every 6 months- Await results of upcoming urological testing- Patient to report back on urologist's findings and recommendations 3. 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 Anxiety and ADHD- Continue current management with sertraline- Monitor for any signs of serotonin syndrome or worsening dysautonomia symptoms- Reassess efficacy of current treatment regimen at next visit 5. Occipital neuralgia- Defer cortisol testing for a few months due to recent cortisone injections- Reassess need for cortisol testing at next visit 6. 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 Patient alert and oriented x 4 and aware of discussion noted above and in agreeance to plan in management of weight/ POTS and tirzepatide injections- will plan to repeat thyroid and hormone panel in summer/ had injection of steroids in the past month. 07/12/2024 Other Assessment and Plan: 1. Weight management- Continue current weight loss medication at 5 mg- Maintain current dietary approach with emphasis on protein, water, and fiber intake- Continue regular physical activity- Follow-up in one month 2. Vitamin D12 supplementation- Continue current D12 supplementation- Monitor for continued benefits and any adverse effects 3. 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 Patient alert and oriented x 4 and aware of discussion noted above and in agreeance to plan in management of weight, nausea, dietary changes. 08/14/2024 Other Assessment and Plan: 1. Weight Management- BMI 25, current weight 153 lbs- Reports stable weight without blood sugar fluctuations- Experiencing increased energy levels- Good gastrointestinal tolerability with minimal side effects- Engaging in beach walks for exercise- Continue current medication at 5 mg dose- Maintain beach walking exercise routine- Follow up in 2-3 months, or sooner if experiencing fatigue, weight gain, or other concerns- Perform blood work if any new symptoms arise 2. 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 Patient alert and oriented x 4 and aware of discussion noted above and in agreeance to plan in management of weight management. Plan Of Treatment Next Appt Details Provider Name:Britt Ham, 03:20:00 PM, [address] [place] [address], [id number], Insurance Providers Payer Name Payer Address Payer Phone Subscriber Number Group Number Insured Name Patient Relationship to Insured Coverage Start Date Coverage End Date [employer] [address] [place] [address] [id number] Tiera To Self - patient is the insured Medical (General) History Medical History History ICD Code hypermobile ehurs-danlos kidney stones nausea headaches hair loss abdominal pain trouble losing weight fatigue Attention-deficit hyperactivity disorder , unspecified type F90.9 ALLERGY TO CEPHALOSPORINS ALLERGY TO LATEX Surgical History Surgery Date(Month/Year) ovarian cyst removal 2008 2011 kidney stone blasting 2022
--- OUTSIDE RECORDS SUMMARY | 2024-09-15 05:48 | XMS_ITS | Clinical Summary ---
Author Organization [facility] Address [address] [place] [address] Care Team Providers Care Personal Care Aide Name Role Phone Lola Ross MD Primary Care Provider [phone] [facility],non-owned Affiliates and Associated Physician Practices is amultiple site organization consisting of ambulatory clinics and hospital sitesin [place], [place], [place] and [place]. This disclosure is being madepursuant to the Care Everywhere program and may not contain all information available regarding this patient. Last updated 17.[facility] Allergies Active Allergy Reactions Criticality Noted Date Comments Adhesive Sensitivity Rash Medium 08/04/2017 Blisters Cephalosporins Swelling 08/04/2017 Latex Rash Medium 08/04/2017 Medications * Be aware that medications may not be up to date on this document. Alwaysverify current medications with the patient. SERTRALINE HCL PO Active fluticasone propionate (FLONASE) 50 MCG/ACT nasal sprayIndication s:Ear pain, left [place] 2 sprays into each nostril once daily [...] on file Legal Sex Female 7:04 PM RN NAVIGATOR Gender Identity Not on file Sexual Orientation [...] 3:56 PM CDT Height 160 cm (5' 3) 08/04/2017 3:56 PM CDT Body Mass Index 23.74 08/04/2017 3:56 PM CDT Plan of Treatment Health Maintenance Due Date Last Done Comments HIV SCREENING 12/14/1999 HEPATITIS C SCREENING 12/09/2002 DTAP/TDAP/TD VACCINES (1 - Tdap) 12/14/2003 HEPATITIS B VACCINE (1 of 3 - 19+ 3-dose series) 12/14/2003 HPV VACCINE (1 - 3-dose SCDM series) 12/14/2011 COVID-19 VACCINE (1 - 2023-2 5 season) 2023 DEPRESSION SCREENING 02/16/2024 INFLUENZA VACCINE (#1) 2024 ZOSTER VACCINE (1 of 2) 2034 [...] patient's age to complete this topic Insurance [facility] Member Subscriber Plan / Payer (Ef fective 2010-Present) Name:Tiera Hummel Relation to Subscriber:Spouse Name:OFELIA HUMMEL Subscriber ID:Not on file (Home) Address: [address] [place] [id number] Payer ID:[id number] (NAIC) Type:PPO Address: [facility] [id number] [place] [id number] Care Teams Personal Care Aide Relationship Specialty Start Date End Date Lola Ross MD [facility] [place] [address] PCP - General 10/29/15
--- OUTSIDE RECORDS SUMMARY | 2024-09-15 05:48 | XMS_ITS | Patient Health Record ---
Author Organization [facility] Address [address] [place] [address] Care Team Providers Care Medical Safety Director Name Role Phone JESSICA REEVES Primary Care Provider Dallas Stevens Unavailable [phone] Allergies Allergen (clinical drug ingredient) Drug/Non Drug Allergy documented on EMR Reaction Allergy Type Onset Date Status ADHESIVE TAPE (uncoded) Unknown Allergy 2023 Active Medicinal cephalosporin and acting as antibacterial agent (FN) Cephalosporins Unknown Drug Allergy 07/01/2023 Active Latex Latex Unknown Allergy 07/01/2023 Active Reason For Referral No Information Medications Medication SIG (Take, Route, Frequency, Duration) Notes Start Date End Date Status Phenazopyridine HCl 200 MG Oral; Duration: 2 Days Active Equetro 100 MG PLEASE SEE ATTACHED FOR DETAILED DIRECTIONS Oral; Duration: 60 Days Active buPROPion HCl ER (XL) 150 MG 1 tablet ev sammie morning Orally Once a day; Duration: 90 days Active Tirzepatide 5 MG/0.5ML as directed Subcutaneous Active Qulipta 30 MG TAKE 1 TABLET BY YOEL TH EVERY DAY Oral; Duration: 30 Days Active Ondansetron 4 MG Oral 07/01/2023 Ac tive Pramipexole Dihydrochloride 0.5 MG 0.5 MG ORALLY EVERY DAY AT BEDTIME Oral; Duration: 90 Days Active Sertraline HCl 100 MG 1.5 tablet Oral On ce a day; Duration: 90 days Active ALPRAZolam 0.5 MG TAKE 1 TABLET BY YOLE TH EVERY DAY NEEDED; Duration: 30 08/22/2024 Active Social History Tobacco Use: Social History Observation [...] Risk Notes Problem Mild recurrent major depression (43257684) Major depressive disorder, recurrent, mild (F33.0) 07/01/19 Active confirmed Problem Generalized anxiety disorder (F41.1) 07/01/19 Active confirmed Problem Attention deficit hyperactivity disorder, combined type (96286678) Attention-deficit hyperactivity disorder, combined type (F90.2) 07/01/19 Active confirmed Problem Binge eating disorder (773968109) Binge eating disorder (F50.81) 07/01/19 Active confirmed Vital Signs Heart Rate 77 /min 09/11/2024 Height-cm 160.02 cm 09/11/2024 Blood pressure diastolic 65 mm Hg 09/11/2024 Weight-kg 69.31 kg 09/11/2024 Height 63.00 in 09/11/2024 Blood pressure systolic 91 mm Hg 09/11/2024 Weight 152.8 lbs 09/11/2024 BMI 27.06 kg/m2 09/11/2024 Encounters Encounter Location Date Provider Diagnosis [id number] [address] [facility] [address] [address] 10/05/2023 Dallas Lilly Major depressive disorder, recurrent, mild F33.0 ; Attention-deficit hyperactivity disorder, combined type F90.2 ; Binge eating disorder F50.81 and Generalized anxiety disorder F41.1 [facility] [address] [address] 11/05/2023 Dallas Lilly Major depressive disorder, recurrent, mild F33.0 ; Attention-deficit hyperactivity disorder, combined type F90.2 ; Binge eating disorder F50.81 and Generalized anxiety disorder F41.1 [facility] [address] [address] 02/22/2024 Dallasjameel Lilly Major depressive disorder, recurrent, mild F33.0 ; Attention-deficit hyperactivity disorder, combined type F90.2 ; Generalized anxiety disorder F41.1 and Binge eating disorder, mild F50.810 [facility] [address] [place] [address] 04/24/2024 Dallas Lilly Encounter for screen ing for depression Z13.31 ; Encounter for screening for cardiovascular disorders Z13.6 ; Major depressive disorder, recurrent, mild F33.0 ; Attention-deficit hyperactivity disorder, combined type F90.2 ; Generalized anxiety disorder F41.1 and Binge eating disorder, mild F50.810 [facility] [address] [place] [address] 08/21/2024 Dallasjameel Lilly [facility] [address] [place] [address] 09/11/2024 Dallasjameel Lilly Major depressive disorder, recurrent, mild F33.0 ; Attention-deficit hyperactivity disorder, combined type F90.2 ; Generalized anxiety disorder F41.1 and Binge eating disorder, mild F50.810 [facility] [address] [place] [address] 09/16/2023 Dallasjameel Lilly Attention-deficit hyperactivity disorder, combined type F90.2 [facility] [address] [place] [address] 09/16/2023 Dallas Lilly Assessments Encounter Date Diagnosis (ICD Code) Assessment Notes Treatment Notes Treatment Clinical Notes Section Notes 09/16/2023 Attention-defici t hyperactivity disorder, combined type (ICD-10 - F90.2) [...] to assess medication effectiveness and tolerability. 02/22/2024 Major depressive disorder, recurrent, mild (ICD-10 [...] for weight management, as prescribed by their garnett room worker . - Patient reports nausea and anxiety as side effects. Plan: - Encourage the patient to discuss side effects with their garnett room worker . - Monitor the patient's weight and overall well-being during follow-up visits. Follow-up: - Schedule a follow-up appointment in 6 weeks to assess the patient's anxiety levels and overall well-being. 02/22/2024 Attention-defici t hyperactivity disorder, combined type (ICD-10 - F90.2) [...] for weight management, as prescribed by their garnett room worker . - Patient reports nausea and anxiety as side effects. Plan: - Encourage the patient to discuss side effects with their garnett room worker . - Monitor the patient's weight and overall well-being during follow-up visits. Follow-up: - Schedule a follow-up appointment in 6 weeks to assess the patient's anxiety levels and overall well-being. 04/24/2024 Encounter for screening for depression (ICD-10 - Z13.31) 11/05/2023 Major depressive disorder, recurrent, mild (ICD-10 [...] of bupropion or if their mood worsens. 09/11/2024 Major depressive disorder, recurrent, mild (ICD-10 - F33.0) sertraline 100mg daily, bupropion xl 150mg daily Plasma concentrations and therapeutic effects of bupropion may be decreased by moderate CYP2B6 inducers (carbamazepine) 09/11/2024 Attention-defici t hyperactivity disorder, combined type (ICD-10 - F90.2) symptoms manageable 11/05/2023 Attention-defici t hyperactivity disorder, combined type (ICD-10 - F90.2) [...] mood worsens. 04/24/2024 Encounter for screening for cardiovascular disorders (ICD-10 - Z13.6) 02/22/2024 Generalized anxiety disorder (ICD-10 - F41.1) [...] for weight management, as prescribed by their garnett room worker . - Patient reports nausea and anxiety as side effects. Plan: - Encourage the patient to discuss side effects with their garnett room worker . - Monitor the patient's weight and overall well-being during follow-up visits. Follow-up: - Schedule a follow-up appointment in 6 weeks to assess the patient's anxiety levels and overall well-being. 10/05/2023 Attention-defici t hyperactivity disorder, combined type (ICD-10 - F90.2) [...] month to assess medication effectiveness and tolerability. 10/05/2023 Binge eating disorder (ICD-10 - F50.81) [...] for weight management, as prescribed by their garnett room worker . - Patient reports nausea and anxiety as side effects. Plan: - Encourage the patient to discuss side effects with their garnett room worker . - Monitor the patient's weight and overall well-being during follow-up visits. Follow-up: - Schedule a follow-up appointment in 6 weeks to assess the patient's anxiety levels and overall well-being. 04/24/2024 Major depressive disorder, recurrent, mild (ICD-10 - F33.0) sertraline 100mg daily, bupropion xl 150mg daily 11/05/2023 Binge eating disorder (ICD-10 - F50.81) [...] of bupropion or if their mood worsens. 09/11/2024 Generalized anxiety disorder (ICD-10 - F41.1) Carbamazepine may decrease the serum concentration of sertraline. 09/11/2024 Binge eating disorder, mild (ICD-10 - F50.810) stable 11/05/2023 Generalized anxiety disorder (ICD-10 - F41.1) [...] bupropion or if their mood worsens. 04/24/2024 Attention-defici t hyperactivity disorder, combined type (ICD-10 - F90.2) symptoms manageable 10/05/2023 Generalized anxiety disorder (ICD-10 - F41.1) [...] month to assess medication effectiveness and tolerability. 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 Anxiety Assessment: Patient reports anxiety symptoms over the past couple of months. 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 Currently managed with bupropion XL 150 mg and sertraline 150 mg daily. Recently started on carbamazepine (Equetro) for an unspecified reason, which is reported to be helping. Plan: - Continue bupropion XL - Continue sertraline 150 mg daily - Monitor for potential drug interactions: - Carbamazepine may decrease sertraline and bupropion therapeutic effects - Follow up in 4 months - Monitor mood changes, especially with the addition of carbamazepine - Consider potential dose adjustments of current medications if mood changes occur Attention-Defici t/Hyperactivity Disorder (ADHD) Assessment: ADHD symptoms mentioned but not elaborated upon. 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 It is a reflection of a visit with the patient. It might have some inaccuracy, including medication names and transcribing errors, though efforts have been made to correct them. Plan Of Treatment Pending Test Test Name Order Date UDT 08/09/2023 Next Appt Details Provider Name:Dallas Willett Jennifereric boyd, 01/02/2025 04:00:00 PM, [address], [facility] [address], [place], [address], Insurance Providers Payer Name Payer Address Payer Phone Subscriber Number Group Number Insured Name Patient Relationship to Insured Coverage Start Date Coverage End Date [employer] [address] [place] [address] [id number] CRYSTAL HUMMEL Self - patient is the insured 4 [employer] [address] [place] [address] [id number] CRYSTAL HUMMEL Self - patient is the insured 5 Medical (General) History Medical History History ICD Code Problems: Attention deficit hyperactivit y disorder, combined type Binge eating disorder Generalized anxiety disorder Hypermobile Madhav-Danlos syndrome Mild recurrent major depression Moderate recurrent major depression Renal tubular acidosis , Imported from [facility]: On 05/21/2023, the patient had an ambulatory encounter. This was followed by another ambulatory encounter on 07/14/2023. On 07/19/2023, the patient had an ambulatory encounter again. A telephone consultation occurred on 09/21/2023 with [facility]. Another telephone consultation took place on 09/30/2023 with BARRERA Haji [facility], where issues of hypocitraturia, hypokalemia, and nephrolithiasis were noted. On 07/05/2024, orders were placed by Moni Tello MA at [facility] for nephrolithiasis. On 07/12/2024, further orders were made by Moni Tello MA at [facility], again for nephrolithiasis. On 07/18/2024, Selena Terry NP at [facility], noted plant allergic contact dermatitis during an office visit. A telephone consultation occurred on 08/01/2024 with Sarai Lin MA at [facility]. The patient also had an office visit with Ivania Veronica, and another office visit as a new patient with Ivania Veronica, though no specific dates were provided for these visits. Additionally, Britt Ham was involved in the patient's care, but no date was specified. Surgical History Surgery Date(Month/Year) Removal of ovarian cyst(s) (11497) Lithotripsy ([id number]) x 2 section ([id number])
--- OUTSIDE RECORDS SUMMARY | 2024-09-15 05:48 | XMS_ITS | Patient Health Record ---
Author Organization [employer] [facility] Address [address] [address] Care Team Providers Care Lacing String Cutter Name Role Phone Britt Ham Unavailable [phone] Ivania Veronica Unavailable [phone] Migration, Provider Unavailable Unavailable Allergies No Known Allergies Results Component Value Reference Range Notes COMPREHENSIVE METABOLIC PANE L Reviewed date:10/13/2023 02:18:02 PM Interpretation: Performing Lab:[facility], [address] [place], [address] Gurvinder Sethi MD Notes/Report: FASTING:YES FASTING: YES ACTH, PLASMA Reviewed date:10/20/2023 09:33:54 PM Interpretation: Performing Lab:[facility], [address], [place], [address] Garry Metz M.D.,PhD Notes/Report: FASTING:YES FASTING: YES T3, FREE Reviewed date:10/13/2023 02:18:02 PM Interpretation: Performing Lab:[facility], [address] [place], [address] Gurvinder Sethi MD Notes/Report: FASTING:YES FASTING: YES CORTISOL, TOTAL Reviewed date:10/13/2023 02:18:02 PM Interpretation: Performing Lab:[facility], [address] [place], [address] Gurvinder Sethi MD Notes/Report: FASTING:YES FASTING: YES DHEA SULFATE Reviewed date:10/13/2023 02:18:02 PM Interpretation: Performing Lab:[facility], [address], [place], [address] Gurvinder Sethi MD Notes/Report: FASTING:YES FASTING: YES ESTRADIOL Reviewed date:10/13/2023 02:18:02 PM Interpretation: Performing Lab:[facility], [address], [place], [address] Gurvinder Sethi MD Notes/Report: FASTING:YES FASTING: YES FSH Reviewed date:10/13/2023 02:18:02 PM Interpretation: Performing Lab:[facility], [address], [place], [address] Gurvinder Sethi MD Notes/Report: FASTING:YES FASTING: YES INSULIN Reviewed date:10/13/2023 02:18:02 PM Interpretation: Performing Lab:[facility], [address], [place], [address] Gurvinder Sethi MD Notes/Report: FASTING:YES FASTING: YES LH Reviewed date:10/13/2023 02:18:02 PM Interpretation: Performing Lab:[facility], [address], [place], [address] Gurvinder Sethi MD Notes/Report: FASTING:YES FASTING: YES CBC (INCLUDES DIFF/PLT) Reviewed date:10/13/2023 02:18:02 PM Interpretation: Performing Lab:[facility], [address], [place], [address] Gurvinder Sethi MD Notes/Report: FASTING:YES FASTING: YES PROGESTERONE Reviewed date:10/13/2023 02:18:02 PM Interpretation: Performing Lab:[facility], [address], [place], [address] Gurvinder Sethi MD Notes/Report: FASTING:YES FASTING: YES PROLACTIN Reviewed date:10/13/2023 02:18:02 PM Interpretation: Performing Lab:[facility], [address], [place], [address] Gurvinder Sethi MD Notes/Report: FASTING:YES FASTING: YES IRON AND TOTAL IRON BINDING CAPACITY Reviewed date:10/13/2023 02:18:02 PM Interpretation: Performing Lab:[facility], [facility], [address], [place], [address] Gurvinder Sethi MD Notes/Report: FASTING:YES FASTING: YES T4, FREE Reviewed date:10/13/2023 02:18:02 PM Interpretation: Performing Lab:[facility], [facility], [address], [place], [address] Gurvinder Sethi MD Notes/Report: FASTING:YES FASTING: YES TSH Reviewed date:10/13/2023 02:18:02 PM Interpretation: Performing Lab:[facility], [facility], [address], [place], [address] Gurvinder Sethi MD Notes/Report: FASTING:YES FASTING: YES TESTOSTERONE, FREE (DIALYSIS ) AND TOTAL,MS Reviewed date:10/20/2023 09:33:54 PM Interpretation: Performing Lab:[facility], [address] [address], [address], [place], [address] Carl Magallon MD,PhD Notes/Report: FASTING:YES FASTING: YES TESTOSTERONE, TOTAL, MS 32 2-45 ng/dL For additional information, please refer to https://education.Smartling.Higher One/faq/CVY244 (This link is being provided for informational/educational purposes only.) (Note) This test was developed and its analytical performance characteristics have been determined by [employer]. It has not been cleared or approved by the FDA. This assay has been validated pursuant to the CLIA regulations and is used for clinical purposes. TESTOSTERONE, FREE 2 0.1-6.4 pg/mL (Note) This test was developed and its analytical performance characteristics have been determined by [facility]. It has not been cleared or approved by the FDA. This assay has been validated pursuant to the CLIA regulations and is used for clinical purposes. MDF [facility] [address] [facility] [address] [facility] [address] Carl Magallon MD, PhD DEXAMETHASONE Reviewed date:11/29/2023 12:36:19 PM Interpretation: Performing Lab:[facility],, [address] [place], [address] Ambreen Ramsey MD,PhD,TRINITY Notes/Report: DEXAMETHASONE 168 Reference Ranges for Dexamethasone: Baseline: Less than 20 ng/dL 1 mg dexamethasone overnight: 180-550 ng/dL (8:00-10:00 AM) This test was developed and its analytical performance characteristics have been determined by [employer]. It has not been cleared or approved by FDA. This assay has been validated pursuant to the CLIA regulations and is used for clinical purposes. CORTISOL, TOTAL Reviewed date:11/21/2023 08:48:03 PM Interpretation: Performing Lab:[facility], [address] [place], [address] Gurvinder Sethi MD Notes/Report: CORTISOL, FREE, 24 HOUR URIN E Reviewed date:12/12/2023 07:53:39 PM Interpretation: Performing Lab:[facility]STEN [employer] [facility],, [address] [place], [address] Ambreen Ramsey MD,PhD,TRINITY Notes/Report: FASTING:NO URINE VOLUME: 2000/NG FASTING: NO TOTAL VOLUME 2000 CORTISOL, FREE, URINE 23.0 4.0-50.0 mcg/24 h CORTISOL, FREE, URINE 20.6 Reference Range: ADULTS: 3.1-42.3 CREATININE, URINE 1.12 0.50-2.15 g/24 h This test was developed and its analytical performance characteristics have been determined by [employer]. 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 [place] [address] 01/01/2024 Provider Migration [facility] [employer] [facility] - Britt Ham [address] [place] [address] 04/03/2024 Britt [facility]. 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 ; Obesity, unspecified E66.9 and Hypermobile Madhav-Danlos syndrome Q79.62 [facility] Britt Ham [address] [place] [address] 12/16/2023 Britt Wood Obesity, unspecified E66.9 and Dietary counseling and surveillance Z71.3 [facility] Britt Ham [address] [place] [address] 01/10/2024 Britt Wood Obesity, unspecified E66.9 and Dietary counseling and surveillance Z71.3 [facility] Britt Ham [address] [place] [address] 02/02/2024 Britt Wood Obesity, unspecified E66.9 ; Dietary counseling and surveillance Z71.3 and Nausea R11.0 [facility] Britt Ham [address] [place] [address] 03/07/2024 Britt Wood Obesity, unspecified E66.9 and Dietary counseling and surveillance Z71.3 [facility]- Dr. Zamorano [address] [place] [address] 06/29/2024 Britt Ham [facility] [address] [place] [address] 11/22/2023 Ivania Veronica [facility] [address] [place] [address] 11/23/2023 Britt [facility]- Dr. 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 - Follow up with field automobile adjuster and urologist as scheduled. 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 - Follow up with bricklayer supervisor for POTS evaluation. - Monitor response to [...] Recommend natural shampoo (e.g., Purely Majestic from [employer]). 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 Patient education- Instructed the patient [...] syringes of 5 mg tirzepatide- lot number [id number] 2. Cravings and hunger- Patient reported increased [...] weight loss process. Consider referral to a awning frame maker if needed. 5. Insomnia- Patient reports no issues with sleep.- Plan: Continue to monitor sleep quality during follow-up visits. 6. Low Vitamin B12 levels- Patient's B12 levels are slightly low, which may contribute to fatigue.- Plan: Recommend a methylated B12 supplement or increased intake of H65-vebl foods (turkey, chicken, fish). Recheck B12 levels at a future visit. 7. Bantry's screening- Patient's DST result was 0.9, indicating no Bantry's syndrome.- Plan: No further action needed at [...] prefilled 5 mg tirzepatide injections- lot number [id number] 2. Nausea related to medication- Patient experiences nausea after taking the shot on Sundays and Mondays. Occasional vomiting due to sensitive gag reflex.- Plan: Prescribe 4 mg of anti-nausea medication, allowing the patient to take up to 2 tablets twice daily as needed. Start with a 30-day supply and send the prescription to [facility] in [place]. 3. Constipation- Patient reports no significant issues [...] procedures, referring and communicating with other health healthcare consultant, documenting clinical information in the electronic or [...] fracture on one foot- Follow up with retort loader as needed- Monitor for improvement in gait [...] procedures, referring and communicating with other health healthcare consultant, documenting clinical information in the electronic or [...] Insured Coverage Start Date Coverage End Date [facility] [address] [place] [address] [id number] Tiera To Self - patient is the insured Medical (General) History Medical History History ICD Code hypermobile ehurs-danlos kidney stones nausea headaches hair loss abdominal pain trouble losing weight fatigue Attention-deficit hyperactivity disorder , unspecified type F90.9 ALLERGY TO CEPHALOSPORINS ALLERGY TO LATEX Surgical History Surgery Date(Month/Year) kidney stone blasting 2022 2012 ovarian cyst removal 2008
--- OUTSIDE RECORDS SUMMARY | 2024-09-15 05:48 | XMS_ITS ---
Author Organization [employer] [facility] Address [address] [place] [address] Care Team Providers Care Seat Coverer Name Role Phone Britt Ham [phone] REASON FOR VISIT hmjb Encounters Encounter Location Date Provider Diagnosis [facility] - Britt Ham [address] [place] [address] 03/02/2024 Britt Ham Plan Of Treatment No Information Progress Notes * Tiera HUMMELDOB: [birth year] (38 yo F)Acc No.[id number]:03/02/2024 Progress Notes Patient: Tiera OTERO Provider: Zuleima Ham MD :1985 A ge:38 Y S ex:Female Date:03/02/2024 Address:[address] [place] [address] [facility] Subjective: * Chief Complaints: * 1 . Hmjb. * Medical History: Objective: * Vitals: Assessment: Plan: * Treatment: * Billing Information: * Visit Code: * Procedure Codes: * Electronic signature of Clyde Ham MD on 09/15/2024 at 05:47 AM CDT Sign off status: Pending * Provider: Zuleima Ham MD Date: 0 03/02/2024 Generated for Rodolfo raphael/Vern/eTransmitting on: 0 09/15/2024 05:47 AM CDT
--- OUTSIDE RECORDS SUMMARY | 2024-09-15 05:48 | XMS_ITS | Referral Summary ---
Author Organization [facility] Address [address] [facility] [address] [place] [address] Phone Care Team Providers Care Senior Accounting Specialist Name Role Phone Staci Lr NP Primary Care Provider + [phone] Encounters Date Type Department Care Team Description 09/13/2024 Results Follow-Up [facility] at [address] [address] Jennifer Francisco NP Urine culture Urine, clean voided 09/10/2024 8:01 PM CDT - 09/10/2024 11:59 PM CDT Hospital Encounter [address] [address] Dysuria Discharge Disposition: Discharge to home or self care 09/10/2024 3:30 PM CDT Office Visit [facility] Care at [address] [address] Jennifer Francisco NP Dysuria (Primary Dx) 07/18/2024 10:45 AM CDT Office Visit [facility] [place] [address] [place] [place] [address] Selena Terry NP Plant allergic contact dermatitis (Primary Dx) from Last 3 Months Allergies Active Allergy Reactions Criticality Noted Date [...] by mouth nightly at bedtime. 3 Active HYDROcodone-viviana taminophen (NORCO) 7.5-325 mg [...] START on 08/29/22 32 tablet 3 Active Additional Information Patient not taking.Reported on 07/18/2024 triamcinolone (KENALOG) 0.1 % creamIndication s:skin rash Apply topically 2 (two) times a day for 7 days Do not apply to face around eyes or on groin 15 g 3 Active Additional Information Patient not taking.Reported on 07/18/2024 Qulipta 30 mg tablet TAKE 1 TABLET BY MOUTH EVERY DAY Oral for 30 Days Active buPROPion XL (WELLBUTRIN XL) 150 mg 24 hr tablet 5 Active sertraline (ZOLOFT) 100 mg tablet TAKE 1 TABLET BY MOUTH EVERY DAY FOR 90 DAYS 5 Active triamcinolone (KENALOG) 0.1 % creamIndication s:Plant allergic contact dermatitis Apply to affected area 1-2 times daily as needed. Avoid face and groin. 30 g 5 5 026 Active sulfamethoxazol e-trimethoprim (BACTRIM DS) 800-160 mg per tabletIndicatio ns:Dysuria Take 1 tablet (160 mg of trimethoprim total) by mouth 2 (two) times a day for 5 days 10 tablet 5 025 Active nitrofurantoin monohydrate (MACROBID) 100 mg capsule Take 1 capsule (100 mg total) by mouth 2 (two) times a day for 5 days 10 capsule 5 025 Active phenazopyridine (PYRIDIUM) 200 mg tabletIndicatio ns:Dysuria Take 1 tablet (200 mg total) by mouth 3 (three) times a day for 2 days 6 tablet 5 025 Active Problems Problem Noted Date Diagnosed Date [...] Sign Reading Time Taken Comments Blood Pressure 93/65 09/10/2024 3:34 PM CDT Pulse 70 09/10/2024 3:34 PM CDT Temperature 36.8 C (98.2 F) 09/10/2024 3:34 PM CDT Respiratory Rate 20 09/10/2024 3:34 PM CDT Oxygen Saturation 99% 09/10/2024 3:34 PM CDT Inhaled Oxygen Concentration - - Weight 68.9 kg (152 lb) 09/10/2024 3:34 PM CDT Height 157.5 cm (5' 2) 07/18/2024 10:44 AM CDT Body Mass Index 27.8 07/18/2024 10:44 AM CDT Plan of Treatment Not on file Procedures Procedure Name Priority Date/Time Associated Diagnosis Comments POCT URINALYSIS DIPSTICK Routine 09/10/2024 3:41 PM CDT Dysuria URINE CULTURE Routine 09/10/2024 3:35 PM CDT Dysuria from Last 3 Months Results * (ABNORMAL) POCT urinalysis dipstick (09/10/2024 3:41 PM CDT) Color, Urine, POC Yellow Clarity, ur, POC Cloudy(A) Clear Glucose, ur, POC Negative Negative Bilirubin, ur, POC Negative Negative Ketones, ur, POC Negative Negative Specific [place], POC 1.030 1.003 - 1.030 Blood, ur, POC Moderate(A) Negative pH, ur, POC 6.5 5.0 - 8.0 Protein, ur, POC 100.(A) Negative Urobilinogen, urine, POC 1.0 0.2 - 1.0 mg/dL Nitrite, ur, POC Positive(A) Negative Leukocytes, ur, POC Moderate(A) Negative Lot Number [id number] Urine 09/10/2024 3:41 PM CDT Jennifer Francisco NP POINT OF CARE TEST ORDERAB LES Final Result * (ABNORMAL) Urine culture Urine, clean voided (09/10/2024 3:35 PM CDT) Report Final Report: Greater than or equal to 100,000 colonies/mL of Escherichia coli The susceptibility pattern of this Escherichia coli indicates the possible production of an extended spectrum beta lactamase (ESBL). Patients infected with ESBL-producing organisms require contact isolation precautions. For therapeutic options for this organism, please contact infectious diseases. (.) Comment:Testing performed by : [facility], [address] [facility] [place]., [address] Organism ESCHERICHIA COLI BUDDY Urine, clean voided 09/10/2024 3:35 PM CDT 09/11/2024 3:57 AM CDT Monique GOODWIN - 09/13/2024 1:30 PM CDT Testing performed by [facility] Microbiology Laboratory ([phone]) Organism Antibiotic Method Susceptibility Escherichia coli Ampicillin INTERPRETATION Resistant Escherichia coli Cefazolin INTERPRETATION Resistant Escherichia coli Nitrofurantoin INTERPRETATION Susceptible Escherichia coli Gentamicin INTERPRETATION Susceptible Escherichia coli Trimethoprim with Sulfamethoxazole INTERPRETATION Resistant Escherichia coli Meropenem INTERPRETATION Susceptible Escherichia coli Cefepime INTERPRETATION Susceptible Dose-dependent Escherichia coli Ciprofloxacin INTERPRETATION Susceptible Escherichia coli Ceftazidime INTERPRETATION Intermediate Escherichia coli Ceftriaxone INTERPRETATION Resistant Escherichia coli Cephalexin INTERPRETATION Resistant Escherichia coli Cefuroxime-axetil INTERPRETATION Resistant Escherichia coli Cefdinir INTERPRETATION Resistant Escherichia coli Amikacin INTERPRETATION Susceptible Escherichia coli Aztreonam INTERPRETATION Susceptible Escherichia coli Imipenem INTERPRETATION Susceptible Escherichia coli Ertapenem INTERPRETATION Susceptible Escherichia coli Minocycline INTERPRETATION Susceptible Escherichia coli Tobramycin INTERPRETATION Susceptible Escherichia coli Levofloxacin INTERPRETATION Susceptible Escherichia coli Doxycycline INTERPRETATION Susceptible Escherichia coli Ampicillin with Sulbactam INTERPRETAT ION Intermediate Escherichia coli Fosfomycin INTERPRETATION Susceptible Jennifer Francisco NP LAB MICROBIOLOGY - GENERAL ORDERABLES Final Result BUDDY [address] [place] [address] from Last 3 Months Additional Health Concerns Infection Onset Date Last 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
--- OUTSIDE RECORDS SUMMARY | 2024-09-15 05:48 | XMS_ITS | Clinical Summary ---
Author Organization [facility] Address [address] [place] [address] Phone Care Team Providers Care Telephone Triage Nurse Name Role Phone Staci Lr NP Primary Care Provider [phone] Allergies Active Allergy Reactions Criticality Noted Date [...] pain, unspecified 11/22/2018 Essential (primary) hypertension 11/22/2018 Encounters Date Type Department Care Team Description 09/13/2024 Results [facility]-Up [facility] at [address] [address] Jennifer Francisco NP Urine culture Urine, clean voided 09/10/2024 8:01 PM CDT - 09/10/2024 11:59 PM CDT Hospital Encounter [address] [address] Dysuria Discharge Disposition: Discharge to home or self care 09/10/2024 3:30 PM CDT Office Visit [facility] at [address] [phone] Jennifer Francisco NP Dysuria (Primary Dx) 07/18/2024 10:45 AM CDT Office Visit [facility] Care at [place] [address] [place] [address] Selena Terry NP Plant allergic contact dermatitis (Primary Dx) from Last 3 Months Surgical History Surgery Date Site/Laterality Comments SECTION 02/15/2011 - 02/15/2012 OVARIAN CYST REMOVAL 02/16/2008 - 02/14/2009 LITHOTRIPSY 05/28/2022 Medical History Medical History Date Comments Depression Hypermobility of joint High cholesterol 2017 Hypertension Kidney stones GERD (gastroesophageal reflux disease) [...] 07/18/2024 10:44 AM CDT Plan of Treatment Health Maintenance Due Date Last Done Comments Cervical Cancer Screening 1984 Depression Screening 1984 Hepatitis C Screening 1984 Varicella Vaccines (1 of 2 - 13+ 2-dose series) 1997 Regular Well Visit/Exam 18-64 2002 Pneumococcal vaccine <65 (1 of 2 - PCV) 12/14/2003 HPV Vaccines (1 - 3-dose SCDM series) 12/14/2011 Covid-19 Vaccine ( season) 2023 01/17/2021, 05/04/2020, 04/13/2020 Influenza Vaccine (#1) 2024 03/29/2019, 2017 DTaP/Tdap/Td Vaccine (2 - Td or Tdap) 02/26/202812/2018 Hepatitis B Screening Completed 02/25/2018 Procedures Procedure Name Priority Date/Time Associated Diagnosis [...] Negative Ketones, ur, POC Negative Negative Specific [place], POC 1.030 1.003 - 1.030 Blood, ur, POC Moderate(A) Negative pH, ur, POC 6.5 5.0 - 8.0 Protein, ur, POC 100.(A) Negative Urobilinogen, urine, POC 1.0 0.2 - 1.0 mg/dL Nitrite, ur, POC Positive(A) Negative Leukocytes, ur, POC Moderate(A) Negative Lot Number [id number] Urine 09/10/2024 3:41 PM CDT Jennifer Francisco [...] infectious diseases. (.) Comment:Testing performed by : [facility], [address] [place]., [address] Organism [facility]CH[facility]ICHIA COLI [facility] Urine, clean voided 09/10/2024 3:35 PM CDT 09/11/2024 3:57 AM CDT Narrative [facility] - 09/13/2024 1:30 PM CDT Testing performed by [facility] Microbiology Laboratory ([phone]) Organism Antibiotic Method Susceptibility Escherichia coli Ampicillin [...] ION Intermediate Escherichia coli Fosfomycin INTERPRETATION Susceptible us Jennifer Francisco NP LAB MICROBIOLOGY - GENERAL ORDERABLES Final Result BUDDY RUIZ [address] Department [place] [address] from Last 3 Months Additional Health Concerns Infection Onset Date Last 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
[2024-09-15 05:50] VITALS: BP 121/85; PULSE 92; RESP 18; TEMP 37; O2SAT 98
[2024-09-15 06:07] LABS: BEDSIDEPREGUCG Negative (Negative)
--- NOTE | 2024-09-15 06:09 | ED_ITS ---
HPI - General Adult General Chief complaint: Urogenital-Female <Raleigh Wesley MD - Last Filed: 09/15/24 06:49> Stated complaint: kidney pain <Raleigh Wesley MD - Last Filed: 09/15/24 06:49> Time Seen by Provider: 09/15/24 05:47 <Raleigh Wesley MD - Last Filed: 09/15/24 06:49> History of Present Illness HPI narrative: This is a 38-year-old female presenting for urinary symptoms and flank pain. Patient was diagnosed with a UTI last Wednesday. She was placed on Bactrim with no improvement. She was then called by the Urgent Care and said that cultures were resistant to Bactrim and she was placed on Macrobid. She has taken 2 doses but now she has developed left flank pain. She discussed this with her urologist Dr. Lemus given her history of multiple kidney stones she is instructed to come to the ED for evaluation. Patient had some nausea this morning and took 8 of her home Zofran. She is denying fevers chills chest pain difficulty breathing or abdominal pain. She has pain on urination, urgency and frequency. <Raleigh Wesley MD - Last Filed: 09/15/24 06:49> Related Data Home medications: Home Medications ?Medication ?Instructions ?Recorded ?Confirmed ?Last Taken ?Type bupropion HCl 150 mg 24 hr tablet, 150 mg PO QAM 10/01/23 09/14/24 Unknown History extended release sertraline 150 mg capsule 150 mg PO DAILY 02/23/24 09/14/24 Unknown History tirzepatide 5 mg/0.5 mL 5 mg subcut WEEKLY 02/23/24 09/14/24 Unknown History subcutaneous pen injector alprazolam 0.5 mg tablet 0.5 mg PO QHS PRN 08/30/24 09/14/24 Unknown History <Raleigh Wesley MD - Last Filed: 09/15/24 06:49> Allergies/adverse reactions: Allergies Allergy/AdvReac Type Severity Reaction Status Date / Time Cephalosporins Allergy Mild Unknown Verified 09/14/24 13:50 latex Allergy Mild Unknown Verified 09/14/24 13:50 adhesive tape Allergy Unknown Unknown Verified 09/14/24 13:50 <Raleigh Wesley MD - Last Filed: 09/15/24 06:49> [facility] Past Medical History Medical History: Medical History (Updated 09/15/24 @ 10:25 by Yvan Irvin MD) Binge eating Migraine headache Chronic GERD ADHD Anxiety and depression Madhav-Danlos syndrome Small intestinal bacterial overgrowth (SIBO) Hematochezia Ovarian cyst Depression Renal calculi Hypertension <Raleigh Wesley MD - Last Filed: 09/15/24 06:49> Surgical History Surgical History: Surgical History H/O lithotripsy [place] teeth extracted Hx of section History of ovarian cystectomy <Raleigh Wesley MD - Last Filed: 09/15/24 06:49> Family History Family History: Family History Father Hypertension Depression Cancer <Raleigh Wesley MD - Last Filed: 09/15/24 06:49> Social History Social History: Social History Smoking status: Never smoker Alcohol intake: never Substance use: never Substance use type: does not use Lack of Transportation: No Lack of Food: Never True Current Housing: I Have Housing Concerned About Future Housing: No Difficulty Paying Gas/Electric Bills: No Difficulty Paying for Meds: No Currently Unemployed: No Education: Bachelor's Degree Difficulty w/ Childcare or Family Care: No Living arrangements: with family Occupation/Education: occupation 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 Head: atraumatic. EYES: EOMI, NOSE: Atraumatic NECK: Trachea midline RESPIRATORY: No increased rate of breathing, CTAB CARDIOVASCULAR: RRR, No peripheral edema ABDOMINAL: Non-distended soft nontender, no CVA tenderness MUSCULOSKELETAl: No obvious deformities NEURO: Alert. Moving 4/4 extremities SKIN:: Warm, dry. Normal color PSYCHIATRIC: Normal affect <Raleigh Wesley MD - Last Filed: 09/15/24 06:49> Course Course Emergency Course: Care coordination was signed out to me by the overnight physician with CT pending. CT did show renal calculi and this was discussed with Urology. Urology was comfortable the patient being discharged to home with increased fluid intake and Macrobid. Patient was also comfortable with this plan. All questions concerns were addressed patient was well-appearing at time of discharge. <Yvan Irvin MD - Last Filed: 09/15/24 17:57> Vital Signs Vital signs: Vital Signs Temperature 98.6 F 09/15/24 05:50 Pulse Rate 92 09/15/24 05:50 Respiratory Rate 18 09/15/24 05:50 Blood Pressure 121/85 09/15/24 05:50 Pulse Oximetry 98 09/15/24 05:50 Oxygen Delivery Room Air 09/15/24 05:50 Temperature 98.6 F 09/15/24 05:50 Pulse Rate 81 09/15/24 09:37 Respiratory Rate 13 09/15/24 09:37 Blood Pressure 107/79 09/15/24 09:37 Pulse Oximetry 96 09/15/24 09:37 Oxygen Delivery Room Air 09/15/24 05:50 <Raleigh Wesley MD - Last Filed: 09/15/24 06:49> Vital Signs Temperature 98.6 F 09/15/24 05:50 Pulse Rate 92 09/15/24 05:50 Respiratory Rate 18 09/15/24 05:50 Blood Pressure 121/85 09/15/24 05:50 Pulse Oximetry 98 09/15/24 05:50 Oxygen Delivery Room Air 09/15/24 05:50 Temperature 98.6 F 09/15/24 05:50 Pulse Rate 81 09/15/24 09:37 Respiratory Rate 13 09/15/24 09:37 Blood Pressure 107/79 09/15/24 09:37 Pulse Oximetry 96 09/15/24 09:37 Oxygen Delivery Room Air 09/15/24 05:50 <Yvan Irvin MD - Last Filed: 09/15/24 17:57> Vital Signs Temperature 98.6 F 09/15/24 05:50 Pulse Rate 92 09/15/24 05:50 Respiratory Rate 18 09/15/24 05:50 Blood Pressure 121/85 09/15/24 05:50 Pulse Oximetry 98 09/15/24 05:50 Oxygen Delivery Room Air 09/15/24 05:50 Temperature 98.6 F 09/15/24 05:50 Pulse Rate 81 09/15/24 09:37 Respiratory Rate 13 09/15/24 09:37 Blood Pressure 107/79 09/15/24 09:37 Pulse Oximetry 96 09/15/24 09:37 Oxygen Delivery Room Air 09/15/24 05:50 <Ne Ruiz, POST PRODUCTION ASSISTANT - Last Filed: 09/15/24 10:00> Medical Decision Making MDM Narrative Medical decision making narrative: -Course: 38-year-old female presenting with urinary symptoms and left- sided flank pain. Urine indicative infection. CT abdomen pelvis pending. Signed out to oncoming physician. -DDX includes but is not limited to: UTI, pyelo, infected kidney stone <Raleigh Wesley MD - Last Filed: 09/15/24 06:49> -Course: 38-year-old female presenting with urinary symptoms and left- sided flank pain. Urine indicative infection. CT abdomen pelvis pending. Signed out to oncoming physician. -DDX includes but is not limited to: UTI, pyelo, infected kidney stone 0950-spoke with Urology, Dr. Gallardo, reports he is comfortable with patient being discharged home. He would like her discharged home with the prescription for Macrobid x1 week, [place], and pushing fluids. Dr. Gallardo requests pt refrain from taking Aspirin or Ibuprofen. She will have surgery next week as an outpatient. <Ne Ruiz, POST PRODUCTION ASSISTANT - Last Filed: 09/15/24 10:00> Vital Signs Vital Signs: Vital Signs Temperature 98.6 F 09/15/24 05:50 Pulse Rate 92 09/15/24 05:50 Respiratory Rate 18 09/15/24 05:50 Blood Pressure 121/85 09/15/24 05:50 Pulse Oximetry 98 09/15/24 05:50 Oxygen Delivery Room Air 09/15/24 05:50 Temperature 98.6 F 09/15/24 05:50 Pulse Rate 81 09/15/24 09:37 Respiratory Rate 13 09/15/24 09:37 Blood Pressure 107/79 09/15/24 09:37 Pulse Oximetry 96 09/15/24 09:37 Oxygen Delivery Room Air 09/15/24 05:50 <Raleigh Wesley MD - Last Filed: 09/15/24 06:49> Vital Signs Temperature 98.6 F 09/15/24 05:50 Pulse Rate 92 09/15/24 05:50 Respiratory Rate 18 09/15/24 05:50 Blood Pressure 121/85 09/15/24 05:50 Pulse Oximetry 98 09/15/24 05:50 Oxygen Delivery Room Air 09/15/24 05:50 Temperature 98.6 F 09/15/24 05:50 Pulse Rate 81 09/15/24 09:37 Respiratory Rate 13 09/15/24 09:37 Blood Pressure 107/79 09/15/24 09:37 Pulse Oximetry 96 09/15/24 09:37 Oxygen Delivery Room Air 09/15/24 05:50 <Yvan Irvin MD - Last Filed: 09/15/24 17:57> Vital Signs Temperature 98.6 F 09/15/24 05:50 Pulse Rate 92 09/15/24 05:50 Respiratory Rate 18 09/15/24 05:50 Blood Pressure 121/85 09/15/24 05:50 Pulse Oximetry 98 09/15/24 05:50 Oxygen Delivery Room Air 09/15/24 05:50 Temperature 98.6 F 09/15/24 05:50 Pulse Rate 81 09/15/24 09:37 Respiratory Rate 13 09/15/24 09:37 Blood Pressure 107/79 09/15/24 09:37 Pulse Oximetry 96 09/15/24 09:37 Oxygen Delivery Room Air 09/15/24 05:50 <Ne Ruiz APRN - Last Filed: 09/15/24 10:00> Lab Data Result diagrams: 09/15/24 06:03 09/15/24 06:03 <Raleigh Wesley MD - Last Filed: 09/15/24 06:49> Labs: Lab Results 09/15/24 09/15/24 Range/Units 06:03 06:06 WBC 10.1 H (4.5-10.0) K/mm3 RBC 4.39 (4.2-5.4) M/mm3 Hgb 13.0 (12.0-15.0) g/dL Hct 38.2 (37.0-47.0) % MCV 87.0 (80-100) fl MCH 29.6 (26-34) pg MCHC 34.0 (32-36) g/dl RDW 12.1 (11.5-14.5) % Plt Count 254 (150-375) k/mm3 MPV 9.8 (7.4-10.4) fl Immature Gran % (Auto) 0.2 (0-0.5) % Neut % (Auto) 73.6 H (45.5-73.1) % Lymph % (Auto) 12.1 L (18.3-44.2) % [place] % (Auto) 13.2 H (2.6-8.5) % Eos % (Auto) 0.5 (0-4.4) % Baso % (Auto) 0.4 (0.2-1.2) % Lymph # (Auto) 1.23 (0.9-3.2) K/mm3 [place] # (Auto) 1.3 H (0.1-0.6) K/mm3 Eos # (Auto) 0.1 (0-0.3) K/mm3 Baso # (Auto) 0.0 (0.0-0.1) K/mm3 Abs Immat Gran (auto) 0.02 (0.00-0.031) K/mm3 Absolute Neuts (auto) 7.5 H (1.3-6.7) K/mm3 Absolute Nucleated RBC 0.000 (0.0-0.012) K/mm3 Nucleated RBC % 0.0 (0.0-0.2) % Sodium 133 L (137-145) mmol/L Potassium 4.2 (3.4-5.0) mmol/L Chloride 101 (98-107) mmol/L Carbon Dioxide 22 (22-30) mmol/L Anion Gap 10 (4-12) mmol/L BUN 15 (7-17) mg/dL Creatinine 0.93 (0.7-1.0) mg/dL Estim Creat Clear Calc 59 ml/min Estimated GFR > 60 (59 - ) Glucose 109 (65-110) mg/dL Calcium 9.6 (8.4-10.2) mg/dL Total Bilirubin 0.6 (0.2-1.3) mg/dL AST 63 H (14-36) U/L ALT 117 H (6-35) U/L Alkaline Phosphatase 151 H (38-126) U/L Total Protein 8.3 H (6.3-8.2) g/dL Albumin 4.5 (3.5-5.1) g/dL Urine Color Yellow (Yellow) Urine Appearance Clear (Clear) Urine pH 5.5 (5.0-9.0) Ur Specific [place] 1.019 (1.001-1.035) Urine Protein Trace (Negative) mg/dL Urine Glucose (UA) Negative (Negative) mg/dL Urine Ketones Trace H (Negative) mg/dL Ur Blood (Man) Trace (Negative) Urine Nitrate Negative (Negative) Urine Bilirubin Negative (Negative) Urine Urobilinogen 1.0 (<2.0) mg/dL Leukocyte Esterase Rfl 1+ H (Negative) MARGARETTE/UL Urine RBC 6-10 H (0-2) /hpf Urine WBC 21-50 H (0-3) /hpf Ur Squamous Epith Cells Moderate (Few) /hpf Urine Bacteria None seen /hpf Urine Casts 0-2 POC Urine HCG, Qual Negative (Negative) <Raleigh Wesley MD - Last Filed: 09/15/24 06:49> Lab Results 09/15/24 09/15/24 Range/Units 06:03 06:06 WBC 10.1 H (4.5-10.0) K/mm3 RBC 4.39 (4.2-5.4) M/mm3 Hgb 13.0 (12.0-15.0) g/dL Hct 38.2 (37.0-47.0) % MCV 87.0 (80-100) fl MCH 29.6 (26-34) pg MCHC 34.0 (32-36) g/dl RDW 12.1 (11.5-14.5) % Plt Count 254 (150-375) k/mm3 MPV 9.8 (7.4-10.4) fl Immature Gran % (Auto) 0.2 (0-0.5) % Neut % (Auto) 73.6 H (45.5-73.1) % Lymph % (Auto) 12.1 L (18.3-44.2) % [place] % (Auto) 13.2 H (2.6-8.5) % Eos % (Auto) 0.5 (0-4.4) % Baso % (Auto) 0.4 (0.2-1.2) % Lymph # (Auto) 1.23 (0.9-3.2) K/mm3 [place] # (Auto) 1.3 H (0.1-0.6) K/mm3 Eos # (Auto) 0.1 (0-0.3) K/mm3 Baso # (Auto) 0.0 (0.0-0.1) K/mm3 Abs Immat Gran (auto) 0.02 (0.00-0.031) K/mm3 Absolute Neuts (auto) 7.5 H (1.3-6.7) K/mm3 Absolute Nucleated RBC 0.000 (0.0-0.012) K/mm3 Nucleated RBC % 0.0 (0.0-0.2) % Sodium 133 L (137-145) mmol/L Potassium 4.2 (3.4-5.0) mmol/L Chloride 101 (98-107) mmol/L Carbon Dioxide 22 (22-30) mmol/L Anion Gap 10 (4-12) mmol/L BUN 15 (7-17) mg/dL Creatinine 0.93 (0.7-1.0) mg/dL Estim Creat Clear Calc 59 ml/min Estimated GFR > 60 (59 - ) Glucose 109 (65-110) mg/dL Calcium 9.6 (8.4-10.2) mg/dL Total Bilirubin 0.6 (0.2-1.3) mg/dL AST 63 H (14-36) U/L ALT 117 H (6-35) U/L Alkaline Phosphatase 151 H (38-126) U/L Total Protein 8.3 H (6.3-8.2) g/dL Albumin 4.5 (3.5-5.1) g/dL Urine Color Yellow (Yellow) Urine Appearance Clear (Clear) Urine pH 5.5 (5.0-9.0) Ur Specific [place] 1.019 (1.001-1.035) Urine Protein Trace (Negative) mg/dL Urine Glucose (UA) Negative (Negative) mg/dL Urine Ketones Trace H (Negative) mg/dL Ur Blood (Man) Trace (Negative) Urine Nitrate Negative (Negative) Urine Bilirubin Negative (Negative) Urine Urobilinogen 1.0 (<2.0) mg/dL Leukocyte Esterase Rfl 1+ H (Negative) MARGARETTE/UL Urine RBC 6-10 H (0-2) /hpf Urine WBC 21-50 H (0-3) /hpf Ur Squamous Epith Cells Moderate (Few) /hpf Urine Bacteria None seen /hpf Urine Casts 0-2 POC Urine HCG, Qual Negative (Negative) <Yvan Irvin MD - Last Filed: 09/15/24 17:57> Lab Results 09/15/24 09/15/24 Range/Units 06:03 06:06 WBC 10.1 H (4.5-10.0) K/mm3 RBC 4.39 (4.2-5.4) M/mm3 Hgb 13.0 (12.0-15.0) g/dL Hct 38.2 (37.0-47.0) % MCV 87.0 (80-100) fl MCH 29.6 (26-34) pg MCHC 34.0 (32-36) g/dl RDW 12.1 (11.5-14.5) % Plt Count 254 (150-375) k/mm3 MPV 9.8 (7.4-10.4) fl Immature Gran % (Auto) 0.2 (0-0.5) % Neut % (Auto) 73.6 H (45.5-73.1) % Lymph % (Auto) 12.1 L (18.3-44.2) % [place] % (Auto) 13.2 H (2.6-8.5) % Eos % (Auto) 0.5 (0-4.4) % Baso % (Auto) 0.4 (0.2-1.2) % Lymph # (Auto) 1.23 (0.9-3.2) K/mm3 [place] # (Auto) 1.3 H (0.1-0.6) K/mm3 Eos # (Auto) 0.1 (0-0.3) K/mm3 Baso # (Auto) 0.0 (0.0-0.1) K/mm3 Abs Immat Gran (auto) 0.02 (0.00-0.031) K/mm3 Absolute Neuts (auto) 7.5 H (1.3-6.7) K/mm3 Absolute Nucleated RBC 0.000 (0.0-0.012) K/mm3 Nucleated RBC % 0.0 (0.0-0.2) % Sodium 133 L (137-145) mmol/L Potassium 4.2 (3.4-5.0) mmol/L Chloride 101 (98-107) mmol/L Carbon Dioxide 22 (22-30) mmol/L Anion Gap 10 (4-12) mmol/L BUN 15 (7-17) mg/dL Creatinine 0.93 (0.7-1.0) mg/dL Estim Creat Clear Calc 59 ml/min Estimated GFR > 60 (59 - ) Glucose 109 (65-110) mg/dL Calcium 9.6 (8.4-10.2) mg/dL Total Bilirubin 0.6 (0.2-1.3) mg/dL AST 63 H (14-36) U/L ALT 117 H (6-35) U/L Alkaline Phosphatase 151 H (38-126) U/L Total Protein 8.3 H (6.3-8.2) g/dL Albumin 4.5 (3.5-5.1) g/dL Urine Color Yellow (Yellow) Urine Appearance Clear (Clear) Urine pH 5.5 (5.0-9.0) Ur Specific [place] 1.019 (1.001-1.035) Urine Protein Trace (Negative) mg/dL Urine Glucose (UA) Negative (Negative) mg/dL Urine Ketones Trace H (Negative) mg/dL Ur Blood (Man) Trace (Negative) Urine Nitrate Negative (Negative) Urine Bilirubin Negative (Negative) Urine Urobilinogen 1.0 (<2.0) mg/dL Leukocyte Esterase Rfl 1+ H (Negative) MARGARETTE/UL Urine RBC 6-10 H (0-2) /hpf Urine WBC 21-50 H (0-3) /hpf Ur Squamous Epith Cells Moderate (Few) /hpf Urine Bacteria None seen /hpf Urine Casts 0-2 POC Urine HCG, Qual Negative (Negative) <Ne Ruiz APRN - Last Filed: 09/15/24 10:00> Discharge Plan Discharge Clinical Impression: Kidney stone, UTI (urinary tract infection) <Raleigh Wesley MD - Last Filed: 09/15/24 06:49> Patient Disposition: Home <Raleigh Wesley MD - Last Filed: 09/15/24 06:49> Condition: Stable <Raleigh Wesley MD - Last Filed: 09/15/24 06:49> Instructions: Antibiotic Form, Urinary Tract Infection in Women (ED) <Raleigh Wesley MD - Last Filed: 09/15/24 06:49> Additional Instructions: Drink plenty of fluids. Macrobid as directed for 1 week. [place] as needed for pain control. Avoid aspirin. Have close follow-up with Urology. If you have any worsening symptoms then please call or return to the emergency department. <Raleigh Wesley MD - Last Filed: 09/15/24 06:49> Patient Language: Ukrainian <Raleigh Wesley MD - Last Filed: 09/15/24 06:49> Prescriptions: New hydrocodone-acetaminophen 5-325 mg tablet 1 tablet PO Q12H PRN (Reason: pain) Qty: 14 0RF nitrofurantoin monohyd/m-cryst [Macrobid] 100 mg capsule 100 mg PO Q12H 5 Days Qty: 10 0RF Rx Instructions: must administer with a meal/food ondansetron 4 mg tablet,disintegrating 4 mg PO Q8H PRN (Reason: nausea and vomiting) Qty: 14 0RF No Action bupropion HCl 150 mg tablet extended release 24 hr 150 mg PO QAM sertraline 150 mg capsule 150 mg PO DAILY tirzepatide 5 mg/0.5 mL pen injector 5 mg subcut WEEKLY (DME) Hinged Knee Brace See Rx Instructions .Route .MEDSUPPLY Qty: 1 0RF Rx Instructions: As directed alprazolam 0.5 mg tablet 0.5 mg PO QHS PRN Equetro 100 mg capsule, ER multiphase 12 hr 100 mg PO Q12H Qty: 90 2RF Rx Instructions: start with 1 capsule at bedtime for 1 week and then 1 capsule twice a day for 1 week then 1 capsule in the morning and 2 capsules at night. ondansetron 4 mg tablet,disintegrating 4 mg PO Q8H PRN (Reason: nausea and vomiting) Qty: 30 0RF pramipexole 0.5 mg tablet See Rx Instructions .ROUTE .COMPLEX Qty: 90 1RF Dose Instruction: 0.5 MG ORALLY EVERY DAY AT BEDTIME Rx Instructions: 0.5 MG ORALLY EVERY DAY AT BEDTIME Qulipta 30 mg tablet 30 mg PO DAILY Qty: 30 2RF valacyclovir 1 gram tablet See Rx Instructions PO Q12H Qty: 12 1RF Rx Instructions: Take 2 tablets orally at onset of cold sore symptoms. Take 2 tablets 12 hours later. sumatriptan succinate 50 mg tablet See Rx Instructions .ROUTE .COMPLEX Qty: 9 1RF Dose Instruction: 1 TAB AT ONSET OF HEADACHE MAY REPEAT ONCE AFTER AT LEAST 2 HOUR IF NO RELIEF-MAX PER 24 HOUR: 4 TAB Rx Instructions: 1 TAB AT ONSET OF HEADACHE MAY REPEAT ONCE AFTER AT LEAST 2 HOUR IF NO RELIEF-MAX PER 24 HOUR: 4 TAB <Raleigh Wesley MD - Last Filed: 09/15/24 06:49> Follow-up/Referrals: Amrik Gallardo MD [Physician] - Staci Lr, PEDIATRIC NURSE-C [Primary Care Provider] - <Raleigh Wesley MD - Last Filed: 09/15/24 06:49>
[2024-09-15 06:10] LABS: Hematocrit 38.2 % (37.0-47.0); Hemoglobin 13.0 g/dL (12.0-15.0); Immature Granulocyte Percent A 0.2 % (0-0.5); Lymphocytes Absolute Auto 1.23 K/mm3 (0.9-3.2); Mean Corpuscular HGB Conc 34.0 g/dl (32-36); Mean Corpuscular Hemoglobin 29.6 pg (26-34); Mean Corpuscular Volume 87.0 fl (80-100); Nucleated Red Blood Cells Absolute Auto 0.000 K/mm3 (0.0-0.012); Nucleated Red Blood Cells Perc 0.0 % (0.0-0.2); Platelet Count Result 254 k/mm3 (150-375); Red Blood Count 4.39 M/mm3 (4.2-5.4); White Blood Count 10.1 K/mm3 (4.5-10.0)
[2024-09-15 06:17] LABS: Add Urine Microscopic? YES; Appearance Urine Clear (Clear); Glucose Urine UA Negative (Negative); Leukocyte Esterase Ur 1+ LEU/UL (Negative); Nitrate Urine Negative (Negative); Non Pathogenic Casts 0-2; Specific Grav Ur 1.019 (1.001-1.035)
[2024-09-15] MEDS: HYDROmorphone HCL INJ (*CRX) 2 MG/ML VIAL 0.5 MG IV PUSH (06:25)
[2024-09-15 06:32] LABS: Alanine Aminotransferase 117 U/L (6-35); Albumin Level 4.5 g/dL (3.5-5.1); Alkaline Phosphatase 151 U/L (38-126); Anion Gap 10 mmol/L (4-12); Aspartate Amino Transferase 63 U/L (14-36); Bilirubin,Total 0.6 mg/dL (0.2-1.3); Blood Urea Nitrogen 15 mg/dL (7-17); Calcium 9.6 mg/dL (8.4-10.2); Carbon Dioxide 22 mmol/L (22-30); Chloride 101 mmol/L (98-107); Estimated CRCL calculation 59 ml/min; Estimated Glomerular Filt Rate > 60; Glucose 109 mg/dL (65-110); Potassium 4.2 mmol/L (3.4-5.0); Sodium 133 mmol/L (137-145); Total Protein 8.3 g/dL (6.3-8.2)
--- OUTSIDE RECORDS SUMMARY | 2024-09-15 06:35 | XMS_ITS | Clinical Summary ---
Author Organization [facility] Address [address] [place] [phone] Phone Care Team Providers Care Application Development Project Manager Name Role Phone Unavailable Primary Care Provider [...] Type Department Care Team Description 08/01/2024 Telephone [facility] [address] [place] [address] Sarai Lin MA 07/12/2024 Orders Only [facility] [address] [place] [address] Moni Tello MA Nephrolithiasis (Primary Dx) 07/05/2024 Orders Only [facility] [address] [place] [address] Moni Tello MA Nephrolithiasis (Primary Dx) from [...]
--- OUTSIDE RECORDS SUMMARY | 2024-09-15 06:35 | XMS_ITS | Referral Summary ---
Author Organization [facility] Address [address] [place] [address] Phone Care Team Providers Care Assembly Machine Offbearer Name Role Phone Staci Lr NP Primary Care Provider [phone] Encounters Date Type Department Care Team Description 09/13/2024 Results Follow-Up [facility] at [address] [address] Jennifer Francisco NP Urine culture Urine, clean voided 09/10/2024 8:01 PM CDT - 09/10/2024 11:59 PM CDT Hospital Encounter [address] [address] Dysuria Discharge Disposition: Discharge to home or self care 09/10/2024 3:30 PM CDT Office Visit [facility] at [address] [address] Jennifer Francisco NP Dysuria (Primary Dx) 07/18/2024 10:45 AM CDT Office Visit [facility] [place] [address] [place] [address] Selena Terry NP Plant allergic [...] Negative Ketones, ur, POC Negative Negative Specific [place], POC 1.030 1.003 - 1.030 Blood, ur, POC Moderate(A) Negative pH, ur, POC 6.5 5.0 - 8.0 Protein, ur, POC 100.(A) Negative Urobilinogen, urine, POC 1.0 0.2 - 1.0 mg/dL Nitrite, ur, POC Positive(A) Negative Leukocytes, ur, POC Moderate(A) Negative Lot Number [id number] Urine 09/10/2024 3:41 PM CDT Jennifer Francisco [...] infectious diseases. (.) Comment:Testing performed by : [facility], [address] [place]., [address] Organism ESCHERICHIA COLI BUDDY Urine, clean voided 09/10/2024 3:35 PM CDT 09/11/2024 3:57 AM CDT Monique GOODWIN - 09/13/2024 1:30 PM CDT Testing performed by [facility] ([phone]) Organism Antibiotic Method Susceptibility Escherichia coli Ampicillin [...] MICROBIOLOGY - GENERAL ORDERABLES Final Result BUDDY [id number] [address] Department [place] [address] from Last 3 Months Additional Health Concerns Infection Onset Date Last Indicated MDR gram neg/ESBL 09/10/2024 09/10/2024 Insurance BL CHOICE PRF PPO [place]UE ACCESS O[place] [employer] ACCESS OOS Care Teams Assembly Machine Offbearer Relationship Specialty Start Date End Date Staci Lr NP [address] [place] [address] PCP - General Cardiovascular Disease 07/18/24
--- OUTSIDE RECORDS SUMMARY | 2024-09-15 06:35 | XMS_ITS | Encounter Summary ---
Author Organization [facility] Address [address] [place] [address] Care Team Providers Care Ultrasonic Tester Name Role Phone Lola Ross MD Primary Care Provider [phone] Encounter Details Date Type Department Care Team (Late st Contact Info) Description 02/04/2004 Inpatient Historical [facility], Tony Solorzano MD [address] [place] [address] Ricki Robertson MD [address] [address] RENAL & URETERAL DIS NOS (Primary Dx) Social History Tobacco Use Types Packs/Day Years Used Date Smoking Tobacco: Never Assessed Comments Unknown Sex and Gender Information Value Date Recorded Sex Assigned at Not on file 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
--- OUTSIDE RECORDS SUMMARY | 2024-09-15 06:35 | XMS_ITS | Encounter Summary ---
Author Organization [facility] Address [address] [place] [address] Care Team Providers Care Patient Services Rep Name Role Phone Staci Lr NP Primary Care Provider [phone] Encounter Details Date Type Department Care Team (Late st Contact Info) Description 09/13/2024 Results Follow-Up [facility] at [address] [address] Jennifer Francisco NP [address] [place] [address] [address] [place], [place] [id number] Urine culture Urine, clean voided Social History [...] documented as of this encounter Care Teams Patient Services Rep Relationship Specialty Start Date End Date Staci Lr NP [address] [place] [address] PCP - General Cardiovascular Disease 07/18/24 documented as of this encounter
--- OUTSIDE RECORDS SUMMARY | 2024-09-15 06:35 | XMS_ITS | Clinical Summary ---
Author Organization [facility] [employer] Address [address] [facility] [place] [address] Care Team Providers Care Microbiology Technician Name Role Phone Lola Ross MD Primary Care Provider [phone] Source Comments [facility] [employer],non-owned Affiliates and Associated Physician Practices is amultiple site organization consisting of ambulatory clinics and hospital sitesin [place], [place], [place] and [place]. This disclosure is being madepursuant to the Care Everywhere program and may not contain all information available regarding this patient. Last updated 17.[facility] [employer] Allergies Active Allergy Reactions Criticality Noted Date Comments Adhesive Sensitivity Rash Medium 08/04/2017 Blisters Cephalosporins Swelling 08/04/2017 Latex Rash Medium 08/04/2017 Medications * Be aware that medications may not be up to date on this document. Alwaysverify current medications with the patient. 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 [place] [address] PCP - General 10/29/15
--- OUTSIDE RECORDS SUMMARY | 2024-09-15 06:35 | XMS_ITS | Clinical Summary ---
Author Organization [facility] Address [address] [place] [phone] Phone Care Team Providers Care Director Of Sports Performance Name Role Phone Staci Lr NP Primary Care Provider [phone] Allergies Active Allergy Reactions Criticality Noted Date [...] Department Care Team Description 09/13/2024 Results Follow-Up [facility] at [address] [address] Jennifer Francisco NP Urine culture Urine, clean voided 09/10/2024 8:01 PM CDT - 09/10/2024 11:59 PM CDT Hospital Encounter [address] [address] Dysuria Discharge Disposition: Discharge to home or self care 09/10/2024 3:30 PM CDT Office Visit [facility] at [address] [phone] Jennifer Francisco NP Dysuria (Primary Dx) 07/18/2024 10:45 AM CDT Office Visit [facility] [place] [address] [place] [phone] Selena Terry NP Plant allergic contact dermatitis [...] Negative Ketones, ur, POC Negative Negative Specific [place], POC 1.030 1.003 - 1.030 Blood, ur, POC Moderate(A) Negative pH, ur, POC 6.5 5.0 - 8.0 Protein, ur, POC 100.(A) Negative Urobilinogen, urine, POC 1.0 0.2 - 1.0 mg/dL Nitrite, ur, POC Positive(A) Negative Leukocytes, ur, POC Moderate(A) Negative Lot Number [id number] Urine 09/10/2024 3:41 PM CDT Jennifer Francisco [...] infectious diseases. (.) Comment:Testing performed by : [facility], [address] [place]., [address] Organism [facility] Urine, clean voided 09/10/2024 3:35 PM CDT 09/11/2024 3:57 AM CDT Narrative [facility] - 09/13/2024 1:30 PM CDT Testing performed by [facility] ([phone]) Organism Antibiotic Method Susceptibility Escherichia coli Ampicillin [...] - GENERAL ORDERABLES Final Result [facility] [address] Department [place] [address] from Last 3 Months Additional Health Concerns Infection Onset Date Last Indicated MDR gram neg/ESBL 09/10/2024 09/10/2024 Insurance [place] CHO[place] PRF [place] ACCESS OOS [employer] OOS Care Teams Director Of Sports Performance Relationship Specialty Start Date End Date Staci Lr NP [address] [place] [address] PCP - General Cardiovascular Disease 07/18/24
--- OUTSIDE RECORDS SUMMARY | 2024-09-15 06:35 | XMS_ITS | Clinical Summary ---
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
--- OUTSIDE RECORDS SUMMARY | 2024-09-15 06:35 | XMS_ITS | Clinical Summary ---
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
[2024-09-15 07:00] VITALS: BP 108/75; PULSE 87; RESP 19; O2SAT 97
--- NOTE | 2024-09-15 07:52 | PC.NURSE ---
Patient states her pain has subsided and refuses Dilaudid at this time
[2024-09-15 09:37] VITALS: BP 107/79; PULSE 81; RESP 13; O2SAT 96
[2024-09-15] MEDS: fentaNYL CITRATE INJ (*CRX) 100 MCG/2 ML VIAL 50 MCG IV PUSH (09:41)
[2024-09-15] MEDS: SODIUM CHLORIDE 0.9% IV 1,000 ML 999 ML IV CONT (10:02)
--- NOTE | 2024-09-15 10:03 | P.CONUR_ITS ---
Assessment and Plan Assessment and plan (1) Kidney stone: Code(s): N20.0 - Calculus of kidney Status: Acute (2) UTI (urinary tract infection): Code(s): N39.0 - Urinary tract infection, site not specified Status: Acute Plan very pleasant 38 female well known to our practice. She has 2 left renal pelvis stones with mild left hydronephrosis. Patient had recent diagnosis of UTI currently on culture appropriate antibiotics. -- Patient's pain has improved. She will be discharged home with narcotic pain medicine. She should avoid nonsteroidal anti-inflammatories and aspirin with plan for outpatient ESWL procedure -- send repeat urine culture today -- patient to return to the emergency department develops fevers chills nausea vomiting severe pain. Urology Consult Note HPI Date Seen: 09/15/24 Primary Care Provider: Staci Lr, AMIRA-C Consult Narrative Narrative: Tiera To is a 38 year old female Well known to our practice with a history of nephrolithiasis. She presented to urgent care last week where she was found to have urinary tract infection and started on Bactrim, this was found to be resistant and started on Macrobid 2 days ago. Patient began feeling worse yesterday with flank pain. She presented to the emergency department last night where CT scan found left-sided stone disease PMFSH Past Medical History Medical History (Updated 09/15/24 @ 10:25 by Yvan Irvin MD) Binge eating Migraine headache Chronic GERD ADHD Anxiety and depression Madhav-Danlos syndrome Small intestinal bacterial overgrowth (SIBO) Hematochezia Ovarian cyst Depression Renal calculi Hypertension Surgical History Surgical History H/O lithotripsy Harrells teeth extracted Hx of section History of ovarian cystectomy Family History Family History Father Hypertension Depression Cancer Social History Social History Smoking status: Never smoker Alcohol intake: never Substance use: never Substance use type: does not use Lack of Transportation: No Lack of Food: Never True Current Housing: I Have Housing Concerned About Future Housing: No Difficulty Paying Gas/Electric Bills: No Difficulty Paying for Meds: No Currently Unemployed: No Education: Bachelor's Degree Difficulty w/ Childcare or Family Care: No Living arrangements: with family Occupation/Education: occupation 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 Home Medications and Allergies Home Medications ?Medication ?Instructions ?Recorded ?Confirmed ?Type bupropion HCl 150 mg 24 hr tablet, 150 mg PO QAM 10/01/23 09/14/24 History extended release ondansetron 4 mg disintegrating 4 mg PO Q8H PRN nausea and 12/13/23 09/14/24 Rx tablet vomiting #30 tabs sertraline 150 mg capsule 150 mg PO DAILY 02/23/24 09/14/24 History tirzepatide 5 mg/0.5 mL 5 mg subcut WEEKLY 02/23/24 09/14/24 History subcutaneous pen injector pramipexole 0.5 mg tablet See Rx Instructions .Route 04/17/24 09/14/24 Rx .COMPLEX #90 tabs atogepant 30 mg tablet (Qulipta) 30 mg PO DAILY #30 tabs 06/12/24 09/14/24 Rx Hinged Knee Brace #1 ea 07/05/24 09/14/24 Rx valacyclovir 1 gram tablet See Rx Instructions PO Q12H #12 07/06/24 09/14/24 Rx tabs sumatriptan succinate 50 mg tablet See Rx Instructions .Route 08/14/24 09/14/24 Rx .COMPLEX #9 tabs alprazolam 0.5 mg tablet 0.5 mg PO QHS PRN 08/30/24 09/14/24 History carbamazepine (mood stabiliz) 100 100 mg PO Q12H #90 caps 08/30/24 09/14/24 Rx mg capsule,extend release 12 hr(mood stabilizing) (Equetro) hydrocodone 5 mg-acetaminophen 325 1 tablet PO Q12H PRN pain #14 tabs 09/15/24 Rx mg tablet nitrofurantoin 100 mg PO Q12H 5 days #10 caps 09/15/24 Rx monohydrate/macrocrystals 100 mg capsule (Macrobid) ondansetron 4 mg disintegrating 4 mg PO Q8H PRN nausea and 09/15/24 Rx tablet vomiting #14 tabs Allergies Allergy/AdvReac Type Severity Reaction Status Date / Time Cephalosporins Allergy Mild Unknown Verified 09/14/24 13:50 latex Allergy Mild Unknown Verified 09/14/24 13:50 adhesive tape Allergy Unknown Unknown Verified 09/14/24 13:50 Vital Signs Vital Signs - 24 hr 09/15/24 05:50 09/15/24 07:00 09/15/24 09:37 Temperature 37.0 C Pulse Rate 92 87 81 Respiratory Rate 18 19 13 Blood Pressure 121/85 108/75 107/79 Pulse Oximetry 98 97 96 Oxygen Delivery Room Air Exam 2 Narrative: the patient is awake and alert. She has no acute distress. She states her pain has improved. Breathing is unlabored,abdomen is soft Results Labs 09/15/24 06:03 09/15/24 06:03 Labs: Short CBC 09/15/24 Range/Units 06:03 WBC 10.1 H (4.5-10.0) K/mm3 Hgb 13.0 (12.0-15.0) g/dL Hct 38.2 (37.0-47.0) % Plt Count 254 (150-375) k/mm3 BMP 09/15/24 06:03 Sodium 133 L Potassium 4.2 Chloride 101 Carbon Dioxide 22 BUN 15 Creatinine 0.93 Glucose 109 Calcium 9.6 Liver Function 09/15/24 Range/Units 06:03 Total Bilirubin 0.6 (0.2-1.3) mg/dL AST 63 H (14-36) U/L ALT 117 H (6-35) U/L Alkaline Phosphatase 151 H (38-126) U/L Albumin 4.5 (3.5-5.1) g/dL Urine 09/15/24 Range/Units 06:03 Urine Color Yellow (Yellow) Urine Appearance Clear (Clear) Urine pH 5.5 (5.0-9.0) Ur Specific [place] 1.019 (1.001-1.035) Urine Protein Trace (Negative) mg/dL Urine Glucose (UA) Negative (Negative) mg/dL Imaging Radiologist's impression: Ordering Physician: Raleigh Wesley MD Date of Service: 09/15/24 Procedure(s): CT abdomen pelvis wo con Accession Number(s): [id number] cc: Staci Lr APRN; Raleigh Wesley MD~ CLINICAL INDICATION: Left flank pain COMPARISON: 11/10/2023. TECHNIQUE: Multiple contiguous axial images of the abdomen and pelvis were performed without the administration of intravenous contrast The dose-length product (DLP) was 359.35 mGy-cm. Automated exposure control and iterative reconstruction technique were employed. FINDINGS/OBSERVATIONS: Visualized lower thorax: Calcified 1 mm nodule within the right lobe suggesting prior granulomatous disease. Additional 5.3 mm nodule within the right lower lobe (axial series, image 1) without calcifications which follow-up as per Fleischner guidelines is recommended. The remainder of the bilateral lung hightower are clear. The heart is of normal size, without pericardial effusion. Small hiatal hernia is present. Liver: The liver demonstrates homogeneous attenuation and is not enlarged. Gallbladder and biliary system: The gallbladder is distended, and otherwise unremarkable. Pancreas: Limited evaluation of the pancreas secondary to the lack of intravenous contrast. Spleen: The spleen demonstrates homogeneous attenuation and is not enlarged. Kidneys: Left-sided hydroureteronephrosis. Two stones are identified within the left renal pelvis. No discrete obstructing stone is visualized along the course of the left ureter, to the bladder. Multiple 1 and 2 mm calculi are detected within the left hemipelvis although none with discrete obstructive appearance. The stones within the left renal pelvis measure 8 mm and 4 mm. The right kidney is unremarkable. Adrenal glands: Unremarkable. Gastrointestinal tract: Fecal stasis within the colon. Appendix: The appendix is not definitively visualized. However, no pericecal inflammatory change is identified suggest the presence of acute appendicitis. Vasculature: Unremarkable. Lymph nodes: Limited evaluation without intravenous contrast. Pelvic structures: The bladder is decompressed, limiting its evaluation. The uterus is anteverted and anteflexed, and otherwise unremarkable. Body wall and musculoskeletal: Small fat-containing umbilical hernia. No significant degenerative disease within the lower thoracic or lumbosacral spine. IMPRESSION: Two stones within the left renal hydroureteronephrosis. These possibly have a ball-valve effect as no discrete stone is visualized along the left ureter. Reviewed, dictated and finalized at location A.
[2024-09-15] MEDS: NITROFURANTOIN MONOHYD MACROCR 100 MG CAP PO (11:02)
== END 2024-09-15 11:04 | disposition home or self-care (01) ==
PROVIDERS: Emergency Provider Emergency Medicine; PCP Clinical Nurse Specialist
DX: N13.2 Hydronephrosis with renal and ureteral calculous obstruction (principal); N39.0 Urinary tract infection, site not specified; I10 Essential (primary) hypertension; K21.9 Gastro-esophageal reflux disease without esophagitis; F90.9 Attention-deficit hyperactivity disorder, unspecified type; F32.A Depression, unspecified; F41.9 Anxiety disorder, unspecified; Q79.60 Ehlers-Danlos syndrome, unspecified; Z87.442 Personal history of urinary calculi; Z79.899 Other long term (current) drug therapy; Z79.85 Long-term (current) use of injectable non-insulin antidiabetic drugs
CPT/HCPCS: 36415; 74018; 74176; 80053; 81001; 81025; 85025; 96361; 96374; 99284; A9270; J1171; J3010; J7030

== ENCOUNTER 2024-09-30 14:02 | Emergency (ER) | payer BC, SELFPAY ==
--- NOTE | ~2024-09-30 | XR_ITS ---
EXAMINATION: XR chest 2V Exam Date/Time: 09/30/2024 14:23 CDT HISTORY: cough for 1.5 months Comparison: 11/08/2018. RESULT: Lines, tubes, and devices: None. Lungs and pleura: Clear. Cardiomediastinal silhouette: Stable. Other: No acute osseous or upper abdominal finding. Pectus excavatum. IMPRESSION: No acute cardiopulmonary process. Reviewed, dictated and finalized at location K.
--- OUTSIDE RECORDS SUMMARY | 2024-09-30 14:05 | XMS_ITS | Encounter Summary ---
Author Organization [facility] Address [address] [place] [address] Care Team Providers Care Lamp Shade Sewer Name Role Phone Staci Lr NP Primary Care Provider Encounter Details Date Type Department Care Team (Late st Contact Info) Description 09/13/2024 Results Follow-Up [facility] at [address] [address] Jennifer Francisco NP [address] [place] [address] [address] [place], [place] [phone] Urine culture Urine, clean voided Social History [...] documented as of this encounter Care Teams Lamp Shade Sewer Relationship Specialty Start Date End Date Staci Lr NP [address] [place] [address] PCP - General Cardiovascular Disease 07/18/24 documented as of this encounter
--- OUTSIDE RECORDS SUMMARY | 2024-09-30 14:05 | XMS_ITS | Clinical Summary ---
Author Organization [facility] [employer] Address [address] [place] [address] Care Team Providers Care Vector Control Specialist Name Role Phone Lola Ross MD Primary Care Provider [phone] Source Comments [facility] [employer],non-owned Affiliates and Associated Physician Practices is amultiple site organization consisting of ambulatory clinics and hospital sitesin [place], [place], [place] and [place]. This disclosure is being madepursuant to the Care Everywhere program and may not contain all information available regarding this patient. Last updated 17.[facility] [employer] Allergies Active Allergy Reactions Criticality Noted Date Comments Adhesive Sensitivity Rash Medium 08/04/2017 Blisters Cephalosporins Swelling 08/04/2017 Latex Rash Medium 08/04/2017 Medications * Be aware that medications may not be up to date on this document. Alwaysverify current medications with the patient. 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 [place] [phone] PCP - General 10/29/15
--- OUTSIDE RECORDS SUMMARY | 2024-09-30 14:05 | XMS_ITS ---
Author Organization [facility] [employer]. Address [address] [place] [address] Care Team Providers Care Peoplesoft Hcm Developer Name Role Phone Britt Ham [phone] REASON FOR VISIT Lab FU Encounters Encounter Location Date Provider Diagnosis [facility] Ham [address] [place] [phone] 07/14/2024 Britt Ham Plan Of Treatment Next Appt Details Provider Name:Britt Ham, 03:20:00 PM, [address] [place] [address], [phone], Progress Notes * Tiera HUMMELDOB: [birth year] (38 yo F)Acc No.[id number]:07/14/2024 Progress Notes Patient: Falguni pedroza Tiera Provider: Zuleima Ham MD :1985 A ge:38 Y S ex:Female Date:07/14/2024 Address:[address] [place] [address] [facility] Subjective: * Chief Complaints: * L ab FU * Electronic signature of Clyde Ham MD on 09/30/2024 at 02:05 PM CDT Sign off status: Pending * Provider: Zuleima Ham MD Date: 07/14/2024 Generated for Rodolfo raphael/Vern/eTransmitting on: 09/30/2024 02:05 PM CDT
--- OUTSIDE RECORDS SUMMARY | 2024-09-30 14:05 | XMS_ITS ---
Author Organization [employer] [facility] Address [address] [facility] [place] [address] Care Team Providers Care Commissary Production Supervisor Name Role Phone Britt Ham [phone] REASON FOR VISIT vivian Encounters Encounter Location Date Provider Diagnosis [facility] - Britt Ham [address] [place] [address] 04/03/2024 Britt Ham Plan Of Treatment No Information Progress Notes * Tiera HUMMELDOB: [birth year] (38 yo F)Acc No.[id number]:04/03/2024 Progress Notes Patient: Tiera OTERO Provider: Zuleima Ham MD :1985 A ge:38 Y S ex:Female Date:04/03/2024 Address:[address] [place] [address] [facility] Subjective: * Chief Complaints: * 1 . vivian. * Medical History: Objective: * Vitals: Assessment: Plan: * Treatment: * Billing Information: * Visit Code: * Procedure Codes: * Electronic signature of Clyde Ham MD on 09/30/2024 at 02:05 PM CDT Sign off status: Pending * Provider: Zuleima Ham MD Date: 04/03/2024 Generated for Rodolfo raphael/Vern/eTransmitting on: 0 09/30/2024 02:05 PM CDT
--- OUTSIDE RECORDS SUMMARY | 2024-09-30 14:05 | XMS_ITS | Clinical Summary ---
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
--- OUTSIDE RECORDS SUMMARY | 2024-09-30 14:05 | XMS_ITS ---
Author Organization [facility] Address [address] [place] [address] Care Team Providers Care Tag Stringer Name Role Phone Britt Ham [phone] REASON FOR VISIT hmjb Encounters Encounter Location Date Provider Diagnosis [facility] - Britt Ham [address] [place] [address] 03/02/2024 Britt Ham Plan Of Treatment No Information Progress Notes * Tiera HUMMELDOB: [birth year] (38 yo F)Acc No.[id number]:03/02/2024 Progress Notes Patient: Tiera OTERO Provider: Zuleima Ham MD :1985 A ge:38 Y S ex:Female Date:03/02/2024 Address:[address] [place] [address] [facility] Subjective: * Chief Complaints: * 1 . Hmjb. * Medical History: Objective: * Vitals: Assessment: Plan: * Treatment: * Billing Information: * Visit Code: * Procedure Codes: * Electronic signature of Clyde Ham MD on 09/30/2024 at 02:05 PM CDT Sign off status: Pending * Provider: Zuleima Ham MD Date: 0 03/02/2024 Generated for Rodolfo raphael/Vern/eTransmitting on: 0 09/30/2024 02:05 PM CDT
--- OUTSIDE RECORDS SUMMARY | 2024-09-30 14:05 | XMS_ITS | Encounter Summary ---
Author Organization [employer] Address [address] [place] [address] Care Team Providers Care Automatic Beam Warper Tender Name Role Phone Lola Ross MD Primary Care Provider [phone] Encounter Details Date Type Department Care Team (Late st Contact Info) Description 02/04/2004 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
--- OUTSIDE RECORDS SUMMARY | 2024-09-30 14:05 | XMS_ITS | Patient Health Record ---
Author Organization [facility] Address [address] [address] Care Team Providers Care Nursing Coordinator Name Role Phone Britt Ham Unavailable [phone] Ivania Veronica Unavailable [phone] Migration, Provider Unavailable Unavailable Allergies No Known Allergies Results Component Value Reference Range Notes COMPREHENSIVE METABOLIC PANE L Reviewed date:10/13/2023 02:18:02 PM Interpretation: Performing Lab:[facility], [address] [place], [address] Gurvinder Sethi MD Notes/Report: FASTING:YES FASTING: YES ACTH, PLASMA Reviewed date:10/20/2023 09:33:54 PM Interpretation: Performing Lab:[facility], [address], [place], [address] Garry Metz M.D.,PhD Notes/Report: FASTING:YES FASTING: YES T3, FREE Reviewed date:10/13/2023 02:18:02 PM Interpretation: Performing Lab:[facility], [address] [place], [address] Gurvinder Sethi MD Notes/Report: FASTING:YES FASTING: YES CORTISOL, TOTAL Reviewed date:10/13/2023 02:18:02 PM Interpretation: Performing Lab:[facility], [address] [place], [address] Gurvinder Sethi MD Notes/Report: FASTING:YES FASTING: YES DHEA SULFATE Reviewed date:10/13/2023 02:18:02 PM Interpretation: Performing Lab:[facility], [address], [place], [address] Gurvinder Sethi MD Notes/Report: FASTING:YES FASTING: YES ESTRADIOL Reviewed date:10/13/2023 02:18:02 PM Interpretation: Performing Lab:[facility], [address], [place], [address] Gurvinder Sethi MD Notes/Report: FASTING:YES FASTING: YES FSH Reviewed date:10/13/2023 02:18:02 PM Interpretation: Performing Lab:[facility], [address], [place], [address] Gurvinder Sethi MD Notes/Report: FASTING:YES FASTING: YES INSULIN Reviewed date:10/13/2023 02:18:02 PM Interpretation: Performing Lab:[facility], [address], [place], [address] Gurvinder Sethi MD Notes/Report: FASTING:YES FASTING: YES LH Reviewed date:10/13/2023 02:18:02 PM Interpretation: Performing Lab:[facility], [address], [place], [address] Gurvinder Sethi MD Notes/Report: FASTING:YES FASTING: YES CBC (INCLUDES DIFF/PLT) Reviewed date:10/13/2023 02:18:02 PM Interpretation: Performing Lab:[facility], [address], [place], [address] Gurvinder Sethi MD Notes/Report: FASTING:YES FASTING: YES PROGESTERONE Reviewed date:10/13/2023 02:18:02 PM Interpretation: Performing Lab:[facility], [address], [place], [address] Gurvinder Sethi MD Notes/Report: FASTING:YES FASTING: YES PROLACTIN Reviewed date:10/13/2023 02:18:02 PM Interpretation: Performing Lab:[facility], [address], [place], [address] Gurvinder Sethi MD Notes/Report: FASTING:YES FASTING: YES IRON AND TOTAL IRON BINDING CAPACITY Reviewed date:10/13/2023 02:18:02 PM Interpretation: Performing Lab:[facility], [facility], [address], [place], [address] Gurvinder Sethi MD Notes/Report: FASTING:YES FASTING: YES T4, FREE Reviewed date:10/13/2023 02:18:02 PM Interpretation: Performing Lab:[facility], [facility], [address], [place], [address] Gurvinder Sethi MD Notes/Report: FASTING:YES FASTING: YES TSH Reviewed date:10/13/2023 02:18:02 PM Interpretation: Performing Lab:[facility], [facility], [address], [place], [address] Gurvinder Sethi MD Notes/Report: FASTING:YES FASTING: YES TESTOSTERONE, FREE (DIALYSIS ) AND TOTAL,MS Reviewed date:10/20/2023 09:33:54 PM Interpretation: Performing Lab:[facility], [address] [address], [address], [place], [address] Carl Magallon MD,PhD Notes/Report: FASTING:YES FASTING: YES TESTOSTERONE, TOTAL, MS 32 2-45 ng/dL For additional information, please refer to https://education.[employer].CareSpotter/faq/RNF694 (This link is being provided for informational/educational purposes only.) (Note) This test was developed and its analytical performance characteristics have been determined by [employer]. It has not been cleared or approved by the FDA. This assay has been validated pursuant to the CLIA regulations and is used for clinical purposes. TESTOSTERONE, FREE 2 0.1-6.4 pg/mL (Note) This test was developed and its analytical performance characteristics have been determined by [facility]. It has not been cleared or approved by the FDA. This assay has been validated pursuant to the CLIA regulations and is used for clinical purposes. [facility] [address] [facility] [address] [facility] [address] Carl Magallon MD, PhD DEXAMETHASONE Reviewed date:11/29/2023 12:36:19 PM Interpretation: Performing Lab:[facility],, [address] [place], [address] Ambreen Ramsey MD,PhD,[facility] Notes/Report: DEXAMETHASONE 168 Reference Ranges for Dexamethasone: Baseline: Less than 20 ng/dL 1 mg dexamethasone overnight: 180-550 ng/dL (8:00-10:00 AM) This test was developed and its analytical performance characteristics have been determined by [employer]. It has not been cleared or approved by FDA. This assay has been validated pursuant to the CLIA regulations and is used for clinical purposes. CORTISOL, TOTAL Reviewed date:11/21/2023 08:48:03 PM Interpretation: Performing Lab:[facility], [address] [place], [address] Gurvinder Sethi MD Notes/Report: CORTISOL, FREE, 24 HOUR URIN E Reviewed date:12/12/2023 07:53:39 PM Interpretation: Performing Lab:[facility]EN [facility],, [address] [place], [address] Ambreen Ramsey MD,PhD,[facility] Notes/Report: FASTING:NO URINE VOLUME: 2000/NG FASTING: NO TOTAL VOLUME 2000 CORTISOL, FREE, URINE 23.0 4.0-50.0 mcg/24 h CORTISOL, FREE, URINE 20.6 Reference Range: ADULTS: 3.1-42.3 CREATININE, URINE 1.12 0.50-2.15 g/24 h This test was developed and its analytical performance characteristics have been determined by [employer]. 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 [facility], [facility] - Britt Ham [address] [place] [address] 04/03/2024 Britt [facility] Dr. 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 Britt Ham [address] [place] [address] 12/16/2023 Britt Wood Obesity, unspecified E66.9 and Dietary counseling and surveillance Z71.[address] [facility] Britt Ham [address] [place] [address] 01/10/2024 Britt Wood Obesity, unspecified E66.9 and Dietary counseling and surveillance Z71.3 [facility] Britt Ham [address] [place] [address] 02/02/2024 Britt Wood Obesity, unspecified E66.9 ; Dietary counseling and surveillance Z71.3 and Nausea R11.0 [facility] Britt Ham [address] [place] [address] 03/07/2024 Britt Wood Obesity, unspecified E66.9 and Dietary counseling and surveillance Z71.3 [facility]- Dr. Zamorano [address] [place] [address] 06/29/2024 Britt Ham [facility] [address] [place] [address] 11/22/2023 Ivania Veronica [facility] [address] [place] [address] 11/23/2023 Britt [facility]- Dr. 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 - Follow up with nuclear control room operator and urologist as scheduled. - Consider repeating [...] POTS, and stress. - Follow up with kiln stoker for POTS evaluation. - Monitor response to [...] Recommend natural shampoo (e.g., Purely Majestic from [employer]). 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 Patient education- Instructed the patient [...] syringes of 5 mg tirzepatide- lot number [id number] 2. Cravings and hunger- Patient reported increased [...] weight loss process. Consider referral to a ld teacher if needed. 5. Insomnia- Patient reports no issues with sleep.- Plan: Continue to monitor sleep quality during follow-up visits. 6. Low Vitamin B12 levels- Patient's B12 levels are slightly low, which may contribute to fatigue.- Plan: Recommend a methylated B12 supplement or increased intake of X78-kipq foods (turkey, chicken, fish). Recheck B12 levels at a future visit. 7. Argelia's screening- Patient's DST result was 0.9, indicating no Argelia's syndrome.- Plan: No further action needed at [...] prefilled 5 mg tirzepatide injections- lot number [id number] 2. Nausea related to medication- Patient experiences nausea after taking the shot on Sundays and Mondays. Occasional vomiting due to sensitive gag reflex.- Plan: Prescribe 4 mg of anti-nausea medication, allowing the patient to take up to 2 tablets twice daily as needed. Start with a 30-day supply and send the prescription to [facility] in [place]. 3. Constipation- Patient reports no significant issues [...] procedures, referring and communicating with other health animal care attendant, documenting clinical information in the electronic or [...] fracture on one foot- Follow up with industrial psychologist as needed- Monitor for improvement in gait [...] procedures, referring and communicating with other health animal care attendant, documenting clinical information in the electronic or [...] Insured Coverage Start Date Coverage End Date [facility] [address] [place] [address] [id number] Tiera To Self - patient is the insured Medical (General) History Medical History History ICD Code hypermobile ehurs-danlos kidney stones nausea headaches hair loss abdominal pain trouble losing weight fatigue Attention-deficit hyperactivity disorder , unspecified type F90.9 ALLERGY TO CEPHALOSPORINS ALLERGY TO LATEX Surgical History Surgery Date(Month/Year) kidney stone blasting 2022 2012 ovarian cyst removal 2008
--- OUTSIDE RECORDS SUMMARY | 2024-09-30 14:05 | XMS_ITS | Clinical Summary ---
Author Organization [facility] Address [address] [place] [address] Phone Care Team Providers Care Civil Engineering Drafter Name Role Phone Unavailable Primary Care Provider [...] Type Department Care Team Description 08/01/2024 Telephone [facility] [address] [place] [address] Sarai Lin MA 07/12/2024 Orders Only [facility] [address] [place] [address] Moni Tello MA Nephrolithiasis (Primary Dx) 07/05/2024 Orders Only [facility] [address] [place] [address] Moni Tello MA Nephrolithiasis (Primary Dx) from [...]
--- OUTSIDE RECORDS SUMMARY | 2024-09-30 14:05 | XMS_ITS | Clinical Summary ---
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
--- OUTSIDE RECORDS SUMMARY | 2024-09-30 14:06 | XMS_ITS | Patient Health Record ---
Author Organization [facility]. Address [address] [place] [address] Care Team Providers Care Can Repairer Name Role Phone Britt Ham Unavailable [phone] Migration, Provider Unavailable Unavailable Ivania Veronica Unavailable [phone] Allergies No Known Allergies Results Component Value Reference Range Flag Notes COMPREHENSIVE METABOLIC PANE L Reviewed date:10/13/2023 02:18:02 PM Interpretation: Performing Lab:[place], [facility], [address], [place], [address] FedericaMaria E Sethi MD Notes/Report: Not Reported: BUN and Creatinine are within FASTING:YES Fasting reference interval reference range. FASTING: YES GLUCOSE 91 65-99 mg/dL N UREA NITROGEN [...] date:10/20/2023 09:33:54 PM Interpretation: Performing Lab:[facility], [address], [place], [address] Garry Metz M.D.,PhD Notes/Report: FASTING:YES Reference range applies only to specimens collected between 7am-10am. FASTING: YES ACTH, PLASMA 15 6-50 pg/mL DEXAMETHASONE Reviewed date:11/29/2023 12:36:19 PM Interpretation: Performing Lab:[facility],, [address] [place], [address] Ambreen Ramsey MD,PhD,[facility] Notes/Report: Reference Ranges for Dexamethasone: Baseline: Less than 20 ng/dL 1 mg dexamethasone overnight: 180-550 ng/dL (8:00-10:00 AM) This test was developed and its analytical performance characteristics have been determined by [facility]. It has not been cleared or approved by FDA. This assay has been validated pursuant to the CLIA regulations and is used for clinical purposes. DEXAMETHASONE 168 T3, FREE Reviewed date:10/13/2023 02:18:02 PM Interpretation: Performing Lab:[facility], [address] [place], [address] Gurvinder Sethi MD Notes/Report: FASTING:YES FASTING: YES T3, FREE 3.6 2.3-4.2 pg/mL N CORTISOL, TOTAL Reviewed date:10/13/2023 02:18:02 PM Interpretation: Performing Lab:[facility] [place] [facility], [address] [place], [address] Gurvinder Sethi MD Notes/Report: Reference Range: For 8 a.m.(7-9 a.m.) Specimen: 4.0-22.0 FASTING:YES Reference Range: For 4 p.m.(3-5 p.m.) Specimen: 3.0-17.0 * Please interpret above results accordingly * FASTING: YES CORTISOL, TOTAL 24.5 H CORTISOL, TOTAL Reviewed date:11/21/2023 08:48:03 PM Interpretation: Performing Lab:[facility], [address] [place], [address] Gurvinder Sethi MD Notes/Report: Reference Range: For 8 a.m.(7-9 a.m.) Specimen: 4.0-22.0 Reference Range: For 4 p.m.(3-5 p.m.) Specimen: 3.0-17.0 * Please interpret above results accordingly * CORTISOL, TOTAL 0.9 L DHEA SULFATE Reviewed date:10/13/2023 02:18:02 PM Interpretation: Performing Lab:[facility], [address] [place], [address] Gurvinder Sethi MD Notes/Report: FASTING:YES FASTING: YES DHEA SULFATE 182 19-237 mcg/dL N ESTRADIOL Reviewed date:10/13/2023 02:18:02 PM Interpretation: Performing Lab:[facility] [address] [place], [address] Gurvinder Sethi MD Notes/Report: Reference Range FASTING:YES Follicular Phase: 19-144 Mid-Cycle: 64-357 FASTING: YES Luteal Phase: 56-214 Postmenopausal: < or = 31 Reference range established on post-pubertal patient population. No pre-pubertal reference range established using this assay. For any patients for whom low Estradiol levels are anticipated (e.g. males, pre-pubertal children and hypogonadal/post-menopausal females), the [facility] Estradiol, Ultrasensitive, LCMSMS assay is recommended (order code 41084). Please note: patients being treated with the drug fulvestrant (Faslodex(R)) have demonstrated significant interference in immunoassay methods for estradiol measurement. The cross reactivity could lead to falsely elevated estradiol test results leading to an inappropriate clinical assessment of estrogen status. [facility] order code [id number], Ultrasensitive LC/MS/MS demonstrates negligible cross reactivity with fulvestrant. ESTRADIOL 160 N FSH Reviewed date:10/13/2023 02:18:02 PM Interpretation: Performing Lab:[facility], [address] [place], [address] Gurvinder Sethi MD Notes/Report: Reference Range FASTING:YES Follicular Phase 2.5-10.2 FASTING: YES Mid-cycle Peak 3.1-17.7 Luteal Phase 1.5- 9.1 Postmenopausal 23.0-116.3 FSH 1.9 N INSULIN Reviewed date:10/13/2023 02:18:02 PM Interpretation: Performing Lab:[facility], [address] [place], [address] Gurvinder Sethi MD Notes/Report: Reference Range < or = 18.4 FASTING:YES Risk: FASTING: YES Optimal < or = 18.4 Moderate NA High >18.4 Adult cardiovascular event risk category cut points (optimal, moderate, high) are based on Insulin Reference Interval studies performed at [facility] in 2021. INSULIN 13.6 N LH Reviewed date:10/13/2023 02:18:02 PM Interpretation: Performing Lab:[facility], [address] [place], [address] Gurvinder Sethi MD Notes/Report: Reference Range FASTING:YES Follicular Phase 1.9-12.5 Mid-Cycle Peak 8.7-76.3 FASTING: YES Luteal Phase 0.5-16.9 Postmenopausal 10.0-54.7 LH 3.0 N CBC (INCLUDES DIFF/PLT) Reviewed date:10/13/2023 02:18:02 PM Interpretation: Performing Lab:[facility], [address] [place], [address] Gurvinder Sethi MD Notes/Report: FASTING:YES FASTING: YES [...] 10.2 7.5-12.5 fL N ABSOLUTE NEUTROPHILS 3004 4158-1725 cells/uL N ABSOLUTE LYMPHOCYTES 2007 850-3900 cells/uL N ABSOLUTE MONOCYTES 626 200-950 cells/uL N ABSOLUTE EOSINOPHILS 110 15-500 cells/uL N ABSOLUTE BASOPHILS 52 0-200 cells/uL N NEUTROPHILS 51.8 N LYMPHOCYTES 34.6 N MONOCYTES 10.8 N EOSINOPHILS 1.9 N BASOPHILS 0.9 N PROGESTERONE Reviewed date:10/13/2023 02:18:02 PM Interpretation: Performing Lab:[facility], [address] [place], [address] Gurvinder Sethi MD Notes/Report: Reference Ranges FASTING:YES Female Follicular Phase < 1.0 FASTING: YES Luteal Phase 2.6-21.5 Post menopausal < 0.5 1st Trimester 4.1-34.0 2nd Trimester 24.0-76.0 3rd Trimester 52.0-302.0 PROGESTERONE 7.2 N PROLACTIN Reviewed date:10/13/2023 02:18:02 PM Interpretation: Performing Lab:[facility], [address] [place], [address] Gurvinder Sethi MD Notes/Report: Reference Range FASTING:YES Females Non- 3.0-30.0 FASTING: YES 10.0-209.0 Postmenopausal 2.0-20.0 PROLACTIN 5.8 N IRON AND TOTAL IRON BINDING CAPACITY Reviewed date:10/13/2023 02:18:02 PM Interpretation: Performing Lab:[facility], [address] [place], [address] Gurvinder Sethi MD Notes/Report: FASTING:YES FASTING: YES IRON, TOTAL 76 40-190 mcg/dL N IRON BINDING CAPACITY 346 250-450 mcg/dL (calc) N % SATURATION 22 16-45 % (calc) N T4, FREE Reviewed date:10/13/2023 02:18:02 PM Interpretation: Performing Lab:[facility], [address] [place], [address] Gurvinder Sethi MD Notes/Report: FASTING:YES FASTING: YES T4, FREE 1.2 0.8-1.8 ng/dL N TSH Reviewed date:10/13/2023 02:18:02 PM Interpretation: Performing Lab:[facility], [facility], [address] [place], [address] Gurvinder Sethi MD Notes/Report: Reference Range FASTING:YES > or = 20 Years 0.40-4.50 FASTING: YES Ranges First trimester 0.26-2.66 Second trimester 0.55-2.73 Third trimester 0.43-2.91 TSH 1.93 N TESTOSTERONE, FREE (DIALYSIS ) AND TOTAL,MS Reviewed date:10/20/2023 09:33:54 PM Interpretation: Performing Lab:[facility], [facility], [address] [place] [address], [address], [place], [address] Carl Magallon MD,PhD Notes/Report: (Note) FASTING:YES For additional information, please refer to This test was developed and its analytical performance https://education.[employer]/faq/LMF732 characteristics have been determined by [facility]. It has FASTING: YES (This link is being provided for informational/educational purposes only.) not been cleared or approved by the FDA. This assay has (Note) been validated pursuant to the CLIA regulations and is used for clinical purposes. This test was developed and its analytical performance characteristics have been determined by [facility]. It has MDF not been cleared or approved by the FDA. This assay has [facility] been validated pursuant to the CLIA regulations and is [facility] [place] [address],[address] used for clinical purposes. [place] [id number] Carl Magallon MD, PhD TESTOSTERONE, TOTAL, MS 32 2-45 ng/dL TESTOSTERONE, FREE 2 0.1-6.4 pg/mL CORTISOL, FREE, 24 HOUR URIN E Reviewed date:12/12/2023 07:53:39 PM Interpretation: Performing Lab:[facility],, [address] [facility], [place], [address] Ambreen Ramsey MD,PhD,[facility] Notes/Report: Reference Range: FASTING:NO ADULTS: 3.1-42.3 This test was developed and its analytical performance characteristics have been determined by [facility]. URINE VOLUME: 2000/NG It has not been cleared or approved by FDA. This assay has FASTING: NO been validated pursuant to the CLIA regulations and is used for clinical purposes. 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 Problem Attention deficit hyperactivity disorder (242442829) Attention-deficit hyperactivity disorder, unspecified type (F90.9) Active confirmed Problem 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 Vital Signs Heart Rate 69 /min 08/14/2024 Respiratory Rate 12 /min 02/02/2024 Oximetry 96 % 08/14/2024 Height-cm 160.02 cm 08/14/2024 Blood pressure diastolic 73 mm Hg 08/14/2024 Weight-kg 69.4 kg 08/14/2024 Height 63 in 08/14/2024 Blood pressure systolic 107 mm Hg 08/14/2024 Weight 153.0 lbs 08/14/2024 BMI 27.1 kg/m2 08/14/2024 Encounters Encounter Location Date Provider Diagnosis [address] [id number] 01/01/2024 Provider Migration [address] [address] 10/07/2023 Ivania Veronica 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 Ham [address] [place] [address] 12/16/2023 Birtt Ham Obesity, unspecified E66.9 and Dietary counseling and surveillance Z71.[address] Ham [address] [place] [address] 01/10/2024 Britt Ham Obesity, unspecified E66.9 and Dietary counseling and surveillance Z71.[address] Ham [address] [place] [address] 02/02/2024 Britt Wood Obesity, unspecified E66.9 ; Dietary counseling and surveillance Z71.3 and Nausea R11.[address] Ham [address] [place] [address] 03/07/2024 Britt Wood Obesity, unspecified E66.9 and Dietary counseling and surveillance Z71.[address] Ham [address] [place] [address] 04/03/2024 Britt Wood Obesity, unspecified E66.9 and Dietary counseling and surveillance Z71.[address] Ham [address] [place] [address] 05/01/2024 Britt Wood Obesity, unspecified E66.9 and Dietary counseling and surveillance Z71.[address] Ham [address] [place] [phone] 05/29/2024 Britt Wood Overweight E66.3 ; Hypermobile Madhav-Danlos syndrome Q79.62 and Dietary counseling and surveillance Z71.[address] Ham [address] [place] [address] 07/12/2024 Britt Wood Overweight E66.3 ; Nausea R11.0 and Dietary counseling and surveillance Z71.[address] Ham [address] [place] [address] 08/14/2024 Britt Wood Overweight E66.3 and Dietary counseling and surveillance Z71.[address] 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 - Follow up with bilingual medical receptionist and urologist as scheduled. - Consider repeating [...] POTS, and stress. - Follow up with healthcare economics manager for POTS evaluation. 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 Patient education- Instructed the patient [...] syringes of 5 mg tirzepatide- lot number [id number] 2. Cravings and hunger- Patient reported increased [...] weight loss process. Consider referral to a second ride fare collector if needed. 5. Insomnia- Patient reports no issues with sleep.- Plan: Continue to monitor sleep quality during follow-up visits. 6. Low Vitamin B12 levels- Patient's B12 levels are slightly low, which may contribute to fatigue.- Plan: Recommend a methylated B12 supplement or increased intake of N16-yiot foods (turkey, chicken, fish). Recheck B12 levels [...] prefilled 5 mg tirzepatide injections- lot number [id number] 2. Nausea related to medication- Patient experiences nausea after taking the shot on Sundays and Mondays. Occasional vomiting due to sensitive gag reflex.- Plan: Prescribe 4 mg of anti-nausea medication, allowing the patient to take up to 2 tablets twice daily as needed. Start with a 30-day supply and send the prescription to [facility] in [place]. 3. Constipation- Patient reports no significant issues [...] examination and/or evaluation, counseling and educating the patient/family/childcare center director, ordering medications, tests, or procedures, referring and communicating with other health memory care program resident, documenting clinical information in the electronic or other health record, independently interpreting results and communicating results to the patient/family/childcare center director and care coordinating patient plan. Patient alert and oriented x 4 and aware of discussion noted above and in agreeance to plan in management of obesity/weight management and nausea. 03/07/2024 Other Assessment and Plan: 1. Stress fracture- Continue current management for stress fracture on one foot- Follow up with amortization schedule clerk as needed- Monitor for improvement in gait [...] examination and/or evaluation, counseling and educating the patient/family/childcare center director, ordering medications, tests, or procedures, referring and communicating with other health memory care program resident, documenting clinical information in the electronic or other health record, independently interpreting results and communicating results to the patient/family/childcare center director and care coordinating patient plan. Patient alert [...] to 165 lbs. The patient is over assisted to their goal weight.Continue with the current [...] examination and/or evaluation, counseling and educating the patient/family/childcare center director, ordering medications, tests, or procedures, referring and communicating with other health memory care program resident, documenting clinical information in the electronic or other health record, independently interpreting results and communicating results to the patient/family/childcare center director and care coordinating patient plan. Patient alert [...] examination and/or evaluation, counseling and educating the patient/family/childcare center director, ordering medications, tests, or procedures, referring and communicating with other health memory care program resident, documenting clinical information in the electronic or other health record, independently interpreting results and communicating results to the patient/family/childcare center director and care coordinating patient plan. Patient alert [...] examination and/or evaluation, counseling and educating the patient/family/childcare center director, ordering medications, tests, or procedures, referring and communicating with other health memory care program resident, documenting clinical information in the electronic or other health record, independently interpreting results and communicating results to the patient/family/childcare center director and care coordinating patient plan. Patient alert [...] examination and/or evaluation, counseling and educating the patient/family/childcare center director, ordering medications, tests, or procedures, referring and communicating with other health memory care program resident, documenting clinical information in the electronic or other health record, independently interpreting results and communicating results to the patient/family/childcare center director and care coordinating patient plan. Patient alert [...] examination and/or evaluation, counseling and educating the patient/family/childcare center director, ordering medications, tests, or procedures, referring and communicating with other health memory care program resident, documenting clinical information in the electronic or other health record, independently interpreting results and communicating results to the patient/family/childcare center director and care coordinating patient plan. Patient alert and oriented x 4 and aware of discussion noted above and in agreeance to plan in management of weight management. Plan Of Treatment Next Appt Details Provider Name:Britt Ham, 03:20:00 PM, [address] [place] [address], [phone], Insurance Providers Payer Name Payer Address Payer Phone Subscriber Number Group Number Insured Name Patient Relationship to Insured Coverage Start Date Coverage End Date [employer] [address] [place] [address] [id number] Tiera To Self - patient is the insured Medical (General) History Medical History History ICD Code hypermobile ehurs-danlos kidney stones nausea headaches hair loss abdominal pain trouble losing weight fatigue Attention-deficit hyperactivity disorder , unspecified type F90.9 ALLERGY TO CEPHALOSPORINS ALLERGY TO LATEX Surgical History Surgery Date(Month/Year) ovarian cyst removal 2008 2011 kidney stone blasting 2022
--- OUTSIDE RECORDS SUMMARY | 2024-09-30 14:06 | XMS_ITS | Patient Health Record ---
Author Organization [facility] [employer] Address [address] [place] [address] Care Team Providers Care Certified Registered Locksmith Name Role Phone JESSICA REEVES Primary Care Provider Dallas Stevens Unavailable [phone] Allergies Allergen (clinical drug ingredient) Drug/Non Drug [...] ALPRAZolam 0.5 MG TAKE 1 TABLET BY YOEL TH EVERY DAY NEEDED; Duration: 30 08/22/2024 [...] Risk Notes Problem Mild recurrent major depression (10137633) Major depressive disorder, recurrent, mild (F33.0) 07/01/19 Active confirmed Problem Generalized anxiety disorder (F41.1) 07/01/19 Active confirmed Problem Attention deficit hyperactivity disorder, combined type (83676755) Attention-deficit hyperactivity disorder, combined type (F90.2) 07/01/19 Active confirmed Problem Binge eating disorder (418602103) Binge eating disorder (F50.81) 07/01/19 Active confirmed Vital Signs Heart Rate 77 /min 09/11/2024 Height-cm 160.02 cm 09/11/2024 Blood pressure diastolic 65 mm Hg 09/11/2024 Weight-kg 69.31 kg 09/11/2024 Height 63.00 in 09/11/2024 Blood pressure systolic 91 mm Hg 09/11/2024 Weight 152.8 lbs 09/11/2024 BMI 27.06 kg/m2 09/11/2024 Encounters Encounter Location Date Provider Diagnosis [facility] [address] [facility] [address] [address] 10/05/2023 Dallas Lilly Major depressive disorder, recurrent, mild F33.0 ; Attention-deficit hyperactivity disorder, combined type F90.2 ; Binge eating disorder F50.81 and Generalized anxiety disorder F41.1 [facility] [address] [address] 11/05/2023 Dallas Lilly Major depressive disorder, recurrent, mild F33.0 ; Attention-deficit hyperactivity disorder, combined type F90.2 ; Binge eating disorder F50.81 and Generalized anxiety disorder F41.1 [facility] [address] [address] 02/22/2024 Dallas Lilly Major depressive disorder, recurrent, mild F33.0 ; Attention-deficit hyperactivity disorder, combined type F90.2 ; Generalized anxiety disorder F41.1 and Binge eating disorder, mild F50.810 [facility] [address] [place] [address] 04/24/2024 Dallas Lilly Encounter for screen ing for depression Z13.31 ; Encounter for screening for cardiovascular disorders Z13.6 ; Major depressive disorder, recurrent, mild F33.0 ; Attention-deficit hyperactivity disorder, combined type F90.2 ; Generalized anxiety disorder F41.1 and Binge eating disorder, mild F50.810 [facility] [address] [place] [address] 08/21/2024 Dallas Lilly [facility] [address] [place] [address] 09/11/2024 Dallas Lilly Major depressive disorder, recurrent, mild F33.0 ; Attention-deficit hyperactivity disorder, combined type F90.2 ; Generalized anxiety disorder F41.1 and Binge eating disorder, mild F50.810 Assessments Encounter Date Diagnosis (ICD Code) Assessment Notes Treatment Notes Treatment Clinical Notes Section Notes 10/05/2023 Major depressive disorder, recurrent, mild (ICD-10 [...] of bupropion or if their mood worsens. 02/22/2024 Major depressive disorder, recurrent, mild (ICD-10 [...] for weight management, as prescribed by their marketing financial analyst . - Patient reports nausea and anxiety as side effects. Plan: - Encourage the patient to discuss side effects with their marketing financial analyst . - Monitor the patient's weight and [...] for weight management, as prescribed by their marketing financial analyst . - Patient reports nausea and anxiety as side effects. Plan: - Encourage the patient to discuss side effects with their marketing financial analyst . - Monitor the patient's weight and overall well-being during follow-up visits. Follow-up: - Schedule a follow-up appointment in 6 weeks to assess the patient's anxiety levels and overall well-being. 04/24/2024 Encounter for screening for depression (ICD-10 - Z13.31) 09/11/2024 Major depressive disorder, recurrent, mild (ICD-10 - F33.0) sertraline 100mg daily, bupropion xl 150mg daily Plasma concentrations and therapeutic effects of bupropion may be decreased by moderate CYP2B6 inducers (carbamazepine) 09/11/2024 Attention-defici t hyperactivity disorder, combined type (ICD-10 - F90.2) symptoms manageable 04/24/2024 Encounter for screening for cardiovascular disorders [...] for weight management, as prescribed by their marketing financial analyst . - Patient reports nausea and anxiety as side effects. Plan: - Encourage the patient to discuss side effects with their marketing financial analyst . - Monitor the patient's weight and overall well-being during follow-up visits. Follow-up: - Schedule a follow-up appointment in 6 weeks to assess the patient's anxiety levels and overall well-being. 11/05/2023 Attention-defici t hyperactivity disorder, combined type [...] bupropion or if their mood worsens. 10/05/2023 Attention-defici t hyperactivity disorder, combined type [...] to assess medication effectiveness and tolerability. 11/05/2023 Binge eating disorder (ICD-10 - F50.81) [...] of bupropion or if their mood worsens. 02/22/2024 Binge eating disorder, mild (ICD-10 - [...] for weight management, as prescribed by their marketing financial analyst . - Patient reports nausea and anxiety as side effects. Plan: - Encourage the patient to discuss side effects with their marketing financial analyst . - Monitor the patient's weight and overall well-being during follow-up visits. Follow-up: - Schedule a follow-up appointment in 6 weeks to assess the patient's anxiety levels and overall well-being. 04/24/2024 Major depressive disorder, recurrent, mild (ICD-10 - F33.0) sertraline 100mg daily, bupropion xl 150mg daily 09/11/2024 Generalized anxiety disorder (ICD-10 - F41.1) Carbamazepine may decrease the serum concentration of sertraline. 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 [...] 08/09/2023 Next Appt Details Provider Name:Dallas nix, 01/02/2025 04:00:00 PM, [address], [facility] [address], [place], [address], Insurance Providers Payer Name Payer Address Payer Phone Subscriber Number Group Number Insured Name Patient Relationship to Insured Coverage Start Date Coverage End Date [employer] [employer] [address] [place] [address] [id number] TIERA HUMMEL Self - patient is the insured 4 [employer] [address] [place] [address] [id number] TIERA HUMMEL Self - patient is the insured [...] on 09/21/2023 with Sarai Lin MA at [facility]. Another telephone consultation took place on 09/30/2023 with BARRERA Haji at [facility], where issues of hypocitraturia, hypokalemia, and nephrolithiasis were noted. On 07/05/2024, orders were placed by Moni Tello MA at [facility] for nephrolithiasis. On 07/12/2024, further orders were made by Moni Tello MA at [facility], again for nephrolithiasis. On 07/18/2024, Selena Terry NP at [facility], noted plant allergic contact dermatitis during an office visit. A telephone consultation occurred on 08/01/2024 with Sarai Lin MA at [facility]. The patient also had an office visit with Ivania Veronica, and another office visit as a new patient with Ivania Veronica, though no specific dates were provided for these visits. Additionally, Britt Ham was involved in the patient's care, but no date was specified. Surgical History Surgery Date(Month/Year) Removal of ovarian cyst(s) (92852) Lithotripsy ([id number]) x 2 section ([id number])
--- OUTSIDE RECORDS SUMMARY | 2024-09-30 14:06 | XMS_ITS | Clinical Summary ---
Author Organization [facility] Address [address] [place] [address] Phone Care Team Providers Care Kettle Fry Cook Operator Name Role Phone Staci Lr NP Primary Care Provider [phone] Allergies Active Allergy Reactions Criticality Noted Date [...] for 5 days 10 tablet 5 025 phenazopyridine (PYRIDIUM) 200 mg tabletIndicatio ns:Dysuria Take 1 tablet (200 mg total) by mouth 3 (three) times a day for 2 days 6 tablet 5 025 nitrofurantoin monohydrate (MACROBID) 100 mg capsule Take 1 capsule (100 mg total) by mouth 2 (two) times a day for 5 days 10 capsule 5 025 Active Problems Problem Noted Date Diagnosed Date Hypermobility of joint 01/23/2021 Allergic rhinitis 01/03/2021 Anxiety 01/03/2021 Asthma 01/03/2021 Acne 01/03/2021 Monocytosis 11/05/2020 Dizziness 12/21/2018 Chest pain, unspecified 11/22/2018 Essential (primary) hypertension 11/22/2018 Encounters Date Type Department Care Team Description 09/13/2024 Results Follow-Up [facility] at [address] [address] Jennifer Francisco NP Urine culture Urine, clean voided 09/10/2024 8:01 PM CDT - 09/10/2024 11:59 PM CDT Hospital Encounter [address] [address] Dysuria Discharge Disposition: Discharge to home or self care 09/10/2024 3:30 PM CDT Office Visit [facility] Medical [facility] at [address] [address] Jennifer Francisco NP Dysuria (Primary Dx) 07/18/2024 10:45 AM CDT Office Visit [facility] Care at [place] [address] [place] [id number] Selena Terry NP Plant allergic contact dermatitis [...] Negative Ketones, ur, POC Negative Negative Specific [place], POC 1.030 1.003 - 1.030 Blood, ur, POC Moderate(A) Negative pH, ur, POC 6.5 5.0 - 8.0 Protein, ur, POC 100.(A) Negative Urobilinogen, urine, POC 1.0 0.2 - 1.0 mg/dL Nitrite, ur, POC Positive(A) Negative Leukocytes, ur, POC Moderate(A) Negative Lot Number [id number] Urine 09/10/2024 3:41 PM CDT Jennifer Francisco [...] infectious diseases. (.) Comment:Testing performed by : [facility], [address] [place]., [address] Organism [facility] Urine, clean voided 09/10/2024 3:35 PM CDT 09/11/2024 3:57 AM CDT Narrative [facility] - 09/13/2024 1:30 PM CDT Testing performed by [facility] ([phone]) Organism Antibiotic Method Susceptibility Escherichia coli Ampicillin [...] - GENERAL ORDERABLES Final Result [facility] [address] [place] [address] from Last 3 Months Additional Health Concerns Infection Onset Date Last Indicated MDR gram neg/ESBL 09/10/2024 09/10/2024 Insurance [place] CHOICE PRF [place] [facility] [employer] OOS Care Teams Kettle Fry Cook Operator Relationship Specialty Start Date End Date Staci Lr NP [address] [place] [address] PCP - General Cardiovascular Disease 07/18/24
[2024-09-30 14:10] VITALS: BP 104/77; PULSE 70; RESP 18; TEMP 36.2; O2SAT 100
--- NOTE | 2024-09-30 14:27 | ED_ITS ---
HPI - URI/Sore Throat General Chief Complaint: Upper Respiratory Infection Stated Complaint: Cough/phlegm Time Seen by Provider: 09/30/24 14:27 Source: patient and RN notes reviewed Mode of arrival: ambulatory Limitations: no limitations History of Present Illness HPI Narrative: 38-year-old female presents Express Care complaining of cough for approximately 1.5 months. Patient denies being sick recently. Patient remained initially reported dry nonproductive cough since then has developed worsening cough with mucopurulent sputum. Patient has a history of pulmonary nodules. Patient denies any chest pain, shortness of breath, fevers, body aches, chills, nausea vomiting, diarrhea, weakness, fatigue, upper respiratory symptoms, or any other symptoms. Patient was recently diagnosed with a hiatal hernia is supposed a GI specialist for it. Patient is a nonsmoker. Related Data Home Medications ?Medication ?Instructions ?Recorded ?Confirmed ?Last Taken ?Type bupropion HCl 150 mg 24 hr tablet, 150 mg PO QAM 10/01/23 09/14/24 Unknown History extended release sertraline 150 mg capsule 150 mg PO DAILY 02/23/24 09/14/24 Unknown History tirzepatide 5 mg/0.5 mL 5 mg subcut WEEKLY 02/23/24 09/14/24 Unknown History subcutaneous pen injector alprazolam 0.5 mg tablet 0.5 mg PO QHS PRN 08/30/24 09/14/24 Unknown History Allergies Allergy/AdvReac Type Severity Reaction Status Date / Time Cephalosporins Allergy Severe Swelling Verified 09/30/24 14:51 of Lip/Tongue/Throat adhesive tape Allergy Mild Blister Verified 09/30/24 14:11 latex Allergy Mild Rash Verified 09/30/24 14:11 Review of Systems Review of Systems: CONSTITUTIONAL: Denies fever, chills, or sweats. EYES: Denies visual changes, redness, or discharge. ENT: Denies rhinorrhea, congestion, sore throat, or otalgia. CARDIOVASCULAR: Denies chest pain, palpitations, or edema. RESPIRATORY: Positive for cough. Negative for wheezing, difficulty breathing, Dyspnea. GASTROINTESTINAL: Denies abdominal pain, nausea, vomiting, or diarrhea. GENITOURINARY: Denies dysuria or hematuria. SKIN: Denies rash or itching. MUSCULOSKELETAL: Denies back pain, joint pain, or myalgia. NEUROLOGIC: Denies headache, numbness, or weakness. PSYCHIATRIC: Denies anxiety or depression. All other systems reviewed are negative, except as documented in HPI. [facility] Past Medical History Medical History Binge eating Migraine headache Chronic GERD ADHD Anxiety and depression Madhav-Danlos syndrome Small intestinal bacterial overgrowth (SIBO) Hematochezia Ovarian cyst Depression Renal calculi Hypertension Surgical History Surgical History H/O lithotripsy [place] teeth extracted Hx of section History of ovarian cystectomy Family History Family History Father Hypertension Depression Cancer Social History Social History Smoking status: Never smoker Alcohol intake: never Substance use: never Substance use type: does not use Lack of Transportation: No Lack of Food: Never True Current Housing: I Have Housing Concerned About Future Housing: No Difficulty Paying Gas/Electric Bills: No Difficulty Paying for Meds: No Currently Unemployed: No Education: Bachelor's Degree Difficulty w/ Childcare or Family Care: No Living arrangements: with family Occupation/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 There is no relevant family history pertinent to the patient complaint. Exam Narrative: GENERAL: This is a well-nourished, well-developed adult, in no apparent distress. They are non ill-appearing, nontoxic appearing. HEAD: normocephalic, atraumatic. EYES: Sclera clear/white. Conjunctiva normal. Vision is grossly intact. Extraocular movements intact EARS: External ears normal, auditory canals clear and without drainage, TMs normal without perforation. Hearing grossly intact. NOSE: External nose normal with no obvious nasal discharge, nasal turbinates without redness, no rhinorrhea. THROAT: Mucous membranes moist, posterior pharynx clear, without erythema or swelling. Uvula midline. Postnasal drip present. NECK: Neck supple, non-tender without lymphadenopathy, masses or thyromegaly. CARDIOVASCULAR: Regular rate and rhythm without murmurs, gallops, or rubs. RESPIRATORY: Clear to auscultation. Breath sounds equal bilaterally. No wheezes, rales, or rhonchi. SKIN: warm, Dry, intact with no suspicious lesions or rash, good texture and turgor. NEURO: awake, alert, and oriented to person, place and time. There were no obvious focal neurologic abnormalities. EXTREMITIES: No joint tenderness, effusion, or edema noted. Course Course Emergency Course: Portions of this record may have been created with voice recognition software Level of Care: Express Care Visit Vital Signs Vital signs: Vital Signs Temperature 97.2 F L 09/30/24 14:10 Pulse Rate 70 09/30/24 14:10 Respiratory Rate 18 09/30/24 14:10 Blood Pressure 104/77 09/30/24 14:10 Pulse Oximetry 100 09/30/24 14:10 Oxygen Delivery Room Air 09/30/24 14:10 Temperature 97.2 F L 09/30/24 14:10 Pulse Rate 70 09/30/24 14:10 Respiratory Rate 18 09/30/24 14:10 Blood Pressure 104/77 09/30/24 14:10 Pulse Oximetry 100 09/30/24 14:10 Oxygen Delivery Room Air 09/30/24 14:10 Reviewed MDM - URI/Sore Throat MDM Narrative Medical decision making narrative: Will obtain chest x-ray given length of symptoms. Chest x-ray is negative for acute cardiopulmonary findings. Given patient's length of symptoms the mucopurulent sputum production will go ahead and treat her with a course of Augmentin. Patient has severe allergy to cephalosporins but patient states she has taken Augmentin/penicillins in the past with no issues. Recommend patient to use Flonase and Zyrtec to help with congestion. Discussed physical exam findings. Advised supportive measures and signs/symptoms to go to the ER. Pt is appropriate for outpt treatment and f/u. Differential Diagnosis Differential diagnosis: Likely upper respiratory infection, sinusitis, viral infection, bronchitis and other (Pneumonia) Imaging Data Radiologist's impression: ITS Impressions Chest X-Ray 09/30/24 14:39 IMPRESSION: No acute cardiopulmonary process. Critical Care Time Critical Care Time Critical Care Time: No Discharge Plan Discharge Clinical Impression: Cough productive of purulent sputum Patient Disposition: Home Condition: Stable Instructions: Antibiotic Form, Upper Respiratory Infection (ED) Additional Instructions: Your Chest x-ray was negative for any acute cardiopulmonary findings. Take the antibiotics as directed and complete the course even if you start to feel better. You may use a Neti pot saline rinse 3 times a day with lukewarm distilled water Continue to take Tylenol or Motrin for as needed for fevers or pain. All the instructions on the bottle. Use a humidifier or vaporizer at night. Drink plenty of water. 8-10 glasses per day. Use flonase 2 times per day for 5 days then as needed Take mucinex 2 times per day and be sure to take with 8oz of water. Follow up with Primary provider in 3-5 days Please go to the ER if he develops any difficulty breathing, worsening symptoms, or any other concerns Patient Language: Romansh Prescriptions: New amoxicillin-pot clavulanate 875-125 mg tablet 1 tablet PO Q12H 7 Days Qty: 14 0RF No Action bupropion HCl 150 mg tablet extended release 24 hr 150 mg PO QAM sertraline 150 mg capsule 150 mg PO DAILY tirzepatide 5 mg/0.5 mL pen injector 5 mg subcut WEEKLY (DME) Hinged Knee Brace See Rx Instructions .Route .MEDSUPPLY Qty: 1 0RF Rx Instructions: As directed alprazolam 0.5 mg tablet 0.5 mg PO QHS PRN Equetro 100 mg capsule, ER multiphase 12 hr 100 mg PO Q12H Qty: 90 2RF Rx Instructions: start with 1 capsule at bedtime for 1 week and then 1 capsule twice a day for 1 week then 1 capsule in the morning and 2 capsules at night. ondansetron 4 mg tablet,disintegrating 4 mg PO Q8H PRN (Reason: nausea and vomiting) Qty: 14 0RF pramipexole 0.5 mg tablet See Rx Instructions .ROUTE .COMPLEX Qty: 90 1RF Dose Instruction: 0.5 MG ORALLY EVERY DAY AT BEDTIME Rx Instructions: 0.5 MG ORALLY EVERY DAY AT BEDTIME Qulipta 30 mg tablet 30 mg PO DAILY Qty: 30 2RF valacyclovir 1 gram tablet See Rx Instructions PO Q12H Qty: 12 1RF Rx Instructions: Take 2 tablets orally at onset of cold sore symptoms. Take 2 tablets 12 hours later. sumatriptan succinate 50 mg tablet See Rx Instructions .ROUTE .COMPLEX Qty: 9 1RF Dose Instruction: 1 TAB AT ONSET OF HEADACHE MAY REPEAT ONCE AFTER AT LEAST 2 HOUR IF NO RELIEF-MAX PER 24 HOUR: 4 TAB Rx Instructions: 1 TAB AT ONSET OF HEADACHE MAY REPEAT ONCE AFTER AT LEAST 2 HOUR IF NO RELIEF-MAX PER 24 HOUR: 4 TAB Follow-up/Referrals: Staci Lr, AIR CONDITIONING SPECIALIST-C [Primary Care Provider] - Time of Disposition: 14:49
== END 2024-09-30 14:54 | disposition home or self-care (01) ==
PROVIDERS: PCP Clinical Nurse Specialist
DX: R05.9 Cough, unspecified (principal); Q79.60 Ehlers-Danlos syndrome, unspecified; I10 Essential (primary) hypertension; K21.9 Gastro-esophageal reflux disease without esophagitis; F41.9 Anxiety disorder, unspecified; F32.A Depression, unspecified
CPT/HCPCS: 71046; 99213; G0463

== ENCOUNTER 2024-10-04 15:47 | Outpatient (CLI) | payer BC, SELFPAY ==
--- OUTSIDE RECORDS SUMMARY | 2024-03-02 10:20 | XMS_ITS ---
Author Organization [facility] Address [address] [place] [address] Care Team Providers Care Produce Production Team Member Name Role Phone Britt Ham [phone] REASON FOR VISIT hmjb Encounters Encounter Location Date Provider Diagnosis [facility] - Britt Ham [address] [place] [address] 03/02/2024 Britt Ham Plan Of Treatment No Information Progress Notes * Tiera HUMMELDOB: [birth year] (38 yo F)Acc No.[id number]:03/02/2024 Progress Notes Patient: Tiera OTERO Provider: Zuleima Ham MD :1985 A ge:38 Y S ex:Female Date:03/02/2024 Address:[address] [place] [address] [facility] Subjective: * Chief Complaints: * 1 . Hmjb. * Medical History: Objective: * Vitals: Assessment: Plan: * Treatment: * Billing Information: * Visit Code: * Procedure Codes: * Electronic signature of Clyde Ham MD on 10/04/2024 at 04:06 PM CDT Sign off status: Pending * Provider: Zuleima Ham MD Date: 0 03/02/2024 Generated for Erini ng/Vern/eTransmitting on: 0 10/04/2024 04:06 PM CDT
--- OUTSIDE RECORDS SUMMARY | 2024-04-03 10:20 | XMS_ITS ---
Author Organization [facility] Address [address] [place] [address] Care Team Providers Care Cd Manufacturing Supervisor Name Role Phone Britt Ham [phone] REASON FOR VISIT vivian Encounters Encounter Location Date Provider Diagnosis [facility] - Britt Ham [address] [place] [address] 04/03/2024 Britt Ham Plan Of Treatment No Information Progress Notes * Tiera HUMMELDOB: [birth year] (38 yo F)Acc No.[id number]:04/03/2024 Progress Notes Patient: Tiera OTERO Provider: Zuleima Ham MD :1985 A ge:38 Y S ex:Female Date:04/03/2024 Address:[address] [place] [address] [facility] Subjective: * Chief Complaints: * 1 . vivian. * Medical History: Objective: * Vitals: Assessment: Plan: * Treatment: * Billing Information: * Visit Code: * Procedure Codes: * Electronic signature of Clyde Ham MD on 10/04/2024 at 04:06 PM CDT Sign off status: Pending * Provider: Zuleima Ham MD Date: 04/03/2024 Generated for Rodolfo raphael/Vern/eTransmitting on: 10/04/2024 04:06 PM CDT
--- OUTSIDE RECORDS SUMMARY | 2024-07-14 08:00 | XMS_ITS ---
Author Organization [facility] Address [address] [place], [place] [address] Care Team Providers Care Investigation Manager Name Role Phone Britt Ham Unavailable [phone] REASON FOR VISIT Lab FU Encounters Encounter Location Date Provider Diagnosis [facility]MO Dr. Ham [address] [place] [id number] 07/14/2024 Britt Ham Plan Of Treatment Next Appt Details Provider Name:Britt Ham, 03:20:00 PM, [address] [place] [address], [phone], Progress Notes * Tiera HUMMELDOB: [birth year] (38 yo F)Acc No.[id number]:07/14/2024 Progress Notes Patient: Tiera Russell Provider: Zuleima Ham MD :1985 A ge:38 Y S ex:Female Date:07/14/2024 Address:[address] [place] [address] [facility] Subjective: * Chief Complaints: * L ab FU * Electronic signature of Clyde Ham MD on 10/04/2024 at 04:06 PM CDT Sign off status: Pending * Provider: Zuleima Ham MD Date: 07/14/2024 Generated for Erini ng/Faayshag/eTransmitting on: 10/04/2024 04:06 PM CDT
--- NOTE | ~2024-10-04 | XR_ITS ---
XR abdomen/kub 1V 10/04/2024 16:04 INDICATION: Nephrolithiasis TECHNIQUE: KUB COMPARISON: None FINDINGS: Bowel gas pattern is normal. There is no evidence of free air, mass, organomegaly, ascites or obstruction. Punctate upper pole right renal cyst present. No evidence for left renal stones on the current study. There are pelvic phleboliths. The bones appear intact. IMPRESSION: 1: Right nephrolithiasis. Reviewed, dictated and finalized at location A. IMPRESSION: 1: Right nephrolithiasis.
--- OUTSIDE RECORDS SUMMARY | 2024-10-04 16:06 | XMS_ITS | Clinical Summary ---
Author Organization [facility] [employer] Address [address] [facility] [place] [address] Care Team Providers Care Bleach Supervisor Name Role Phone Lola Ross MD Primary Care Provider [phone] Source Comments [facility] [employer] [employer],non-owned Affiliates and Associated Physician Practices is amultiple site organization consisting of ambulatory clinics and hospital sitesin [place], [place], [place] and [place]. This disclosure is being madepursuant to the Care Everywhere program and may not contain all information available regarding this patient. Last updated 17.[facility] Allergies Active Allergy Reactions Criticality Noted Date Comments Adhesive Sensitivity Rash Medium 08/04/2017 Blisters Cephalosporins Swelling 08/04/2017 Latex Rash Medium 08/04/2017 Medications * Be aware that medications may not be up to date on this document. Alwaysverify current medications with the patient. 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 [place] [id number] PCP - General 10/29/15
--- OUTSIDE RECORDS SUMMARY | 2024-10-04 16:06 | XMS_ITS | Encounter Summary ---
Author Organization Who@ Address [address] [place] [address] Care Team Providers Care Medical Practitioners Name Role Phone Lola Ross MD Primary Care Provider [phone] Encounter Details Date Type Department Care Team (Late st Contact Info) Description 02/04/2004 Inpatient Historical [facility] Tony Solorzano MD [address] [place] [address] Ricki Robertson MD [address] [address] RENAL & URETERAL DIS NOS (Primary Dx) Social History Tobacco Use Types Packs/Day Years Used Date Smoking Tobacco: Never Assessed Comments Unknown Sex and Gender Information Value Date Recorded Sex Assigned at Not on file 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
--- OUTSIDE RECORDS SUMMARY | 2024-10-04 16:06 | XMS_ITS | Clinical Summary ---
Author Organization [facility] utim[facility] Address [address] [place] [phone] Phone Care Team Providers Care Lock Installer Name Role Phone Unavailable Primary Care Provider [...] Type Department Care Team Description 08/01/2024 Telephone [facility] [address] [place] [address] Sarai Lin MA 07/12/2024 Orders Only [facility] [address] [place] [address] Moni Tello MA Nephrolithiasis (Primary Dx) 07/05/2024 Orders Only [facility] [address] [place] [address] Moni Tello MA Nephrolithiasis (Primary Dx) from [...]
--- OUTSIDE RECORDS SUMMARY | 2024-10-04 16:06 | XMS_ITS | Clinical Summary ---
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
--- OUTSIDE RECORDS SUMMARY | 2024-10-04 16:06 | XMS_ITS | Encounter Summary ---
Author Organization [facility] Healthcare Address [address] [place] [address] Care Team Providers Care Director Hair Name Role Phone Staci Lr NP Primary Care Provider Encounter Details Date Type Department Care Team (Late st Contact Info) Description 09/13/2024 Results Follow-Up [facility] at [address] [address] Jennifer Francisco NP [address] [place] [address] [address] [place], [place] [phone] Urine culture Urine, clean voided Social History [...] documented as of this encounter Care Teams Director Hair Relationship Specialty Start Date End Date Staci Lr NP [address] [place] [address] PCP - General Cardiovascular Disease 07/18/24 documented as of this encounter
--- OUTSIDE RECORDS SUMMARY | 2024-10-04 16:07 | XMS_ITS | Clinical Summary ---
Author Organization [facility] Address [address] [place] [address] Phone Care Team Providers Care Patient Flow Coordinator Name Role Phone Staci Lr NP Primary Care Provider [phone] Allergies Active Allergy Reactions Criticality Noted Date [...] Department Care Team Description 09/13/2024 Results Follow-Up [facility] at [address] [address] Jennifer Francisco NP Urine culture Urine, clean voided 09/10/2024 8:01 PM CDT - 09/10/2024 11:59 PM CDT Hospital Encounter [address] [address] Dysuria Discharge Disposition: Discharge to home or self care 09/10/2024 3:30 PM CDT Office Visit [facility] Medical [facility] at [address] [address] Jennifer Francisco NP Dysuria (Primary Dx) 07/18/2024 10:45 AM CDT Office Visit [facility] [place] [address] [place] [id number] Selena Terry NP Plant allergic contact dermatitis [...] Negative Ketones, ur, POC Negative Negative Specific [place], POC 1.030 1.003 - 1.030 Blood, ur, POC Moderate(A) Negative pH, ur, POC 6.5 5.0 - 8.0 Protein, ur, POC 100.(A) Negative Urobilinogen, urine, POC 1.0 0.2 - 1.0 mg/dL Nitrite, ur, POC Positive(A) Negative Leukocytes, ur, POC Moderate(A) Negative Lot Number [id number] Urine 09/10/2024 3:41 PM CDT Jennifer Francisco [...] performed by : [facility], [address] [place]., [address] Organism [facility]rine, clean voided 09/10/2024 3:35 PM CDT 09/11/2024 3:57 AM CDT Narrative [facility] - 09/13/2024 1:30 PM CDT Testing performed by [facility] ([phone]) Organism Antibiotic Method Susceptibility Escherichia coli Ampicillin [...] - GENERAL ORDERABLES Final Result [facility] [address] Department [place] [address] from Last 3 Months Additional Health Concerns Infection Onset Date Last Indicated MDR gram neg/ESBL 09/10/2024 09/10/2024 Insurance [place] CHO[place] [employer] O[place] [employer] OOS Care Teams Patient Flow Coordinator Relationship Specialty Start Date End Date Staci Lr NP [address] [place] [address] PCP - General Cardiovascular Disease 07/18/24
--- OUTSIDE RECORDS SUMMARY | 2024-10-04 16:07 | XMS_ITS | Patient Health Record ---
Author Organization [facility] Address [address] [place] [id number] Care Team Providers Care Masonry Contractor Administrator Name Role Phone Britt Ham Unavailable [phone] Migration, Provider Unavailable Unavailable Ivania Veronica Unavailable [phone] Allergies No Known Allergies Results Component Value Reference Range Flag Notes COMPREHENSIVE METABOLIC PANE L Reviewed date:10/13/2023 02:18:02 PM Interpretation: Performing Lab:[place], [facility], [address] [place], [address] FedericaMaria E Sethi MD Notes/Report: FASTING:YES FASTING: [...] date:10/20/2023 09:33:54 PM Interpretation: Performing Lab:[facility], [address], [place], [address] Garry Metz M.D.,PhD Notes/Report: FASTING:YES FASTING: YES Reference range applies only to specimens collected between 7am-10am. ACTH, PLASMA 15 6-50 pg/mL DEXAMETHASONE Reviewed date:11/29/2023 12:36:19 PM Interpretation: Performing Lab:[facility],, [address] [place], [address] Ambreen Ramsey MD,PhD,[facility] Notes/Report: Reference Ranges for Dexamethasone: Baseline: Less than 20 ng/dL 1 mg dexamethasone overnight: 180-550 ng/dL (8:00-10:00 AM) This test was developed and its analytical performance characteristics have been determined by [facility]. It has not been cleared or approved by FDA. This assay has been validated pursuant to the CLIA regulations and is used for clinical purposes. DEXAMETHASONE 168 T3, FREE Reviewed date:10/13/2023 02:18:02 PM Interpretation: Performing Lab:[facility], [address] [address] [place] [place], [address] Gurvinder Sethi MD Notes/Report: FASTING:YES FASTING: YES T3, FREE 3.6 2.3-4.2 pg/mL N CORTISOL, TOTAL Reviewed date:10/13/2023 02:18:02 PM Interpretation: Performing Lab:[facility], [address] [place], [address] Gurvinder Sethi MD Notes/Report: FASTING:YES FASTING: YES Reference Range: For 8 a.m.(7-9 a.m.) Specimen: 4.0-22.0 Reference Range: For 4 p.m.(3-5 p.m.) Specimen: 3.0-17.0 * Please interpret above results accordingly * CORTISOL, TOTAL 24.5 H CORTISOL, TOTAL Reviewed date:11/21/2023 08:48:03 PM Interpretation: Performing Lab:[facility], [address] [place], [address] Gurvinder Sethi MD Notes/Report: Reference Range: For 8 a.m.(7-9 a.m.) Specimen: 4.0-22.0 Reference Range: For 4 p.m.(3-5 p.m.) Specimen: 3.0-17.0 * Please interpret above results accordingly * CORTISOL, TOTAL 0.9 L DHEA SULFATE Reviewed date:10/13/2023 02:18:02 PM Interpretation: Performing Lab:[facility], [address] [place], [address] Gurvinder Sethi MD Notes/Report: FASTING:YES FASTING: YES DHEA SULFATE 182 19-237 mcg/dL N ESTRADIOL Reviewed date:10/13/2023 02:18:02 PM Interpretation: Performing Lab:[facility] [address] [place], [address] Gurvinder Sethi MD Notes/Report: FASTING:YES FASTING: YES Reference Range Follicular Phase: 19-144 Mid-Cycle: 64-357 Luteal Phase: 56-214 Postmenopausal: < or = 31 Reference range established on post-pubertal patient population. No pre-pubertal reference range established using this assay. For any patients for whom low Estradiol levels are anticipated (e.g. males, pre-pubertal children and hypogonadal/post-menopausal females), the [facility] Estradiol, Ultrasensitive, LCMSMS assay is recommended (order code 73922). Please note: patients being treated with the drug fulvestrant (Faslodex(R)) have demonstrated significant interference in immunoassay methods for estradiol measurement. The cross reactivity could lead to falsely elevated estradiol test results leading to an inappropriate clinical assessment of estrogen status. [facility] order code [id number], Ultrasensitive LC/MS/MS demonstrates negligible cross reactivity with fulvestrant. ESTRADIOL 160 N FSH Reviewed date:10/13/2023 02:18:02 PM Interpretation: Performing Lab:[facility], [address] [place], [address] Gurvinder Sethi MD Notes/Report: FASTING:YES FASTING: YES Reference Range Follicular Phase 2.5-10.2 Mid-cycle Peak 3.1-17.7 Luteal Phase 1.5- 9.1 Postmenopausal 23.0-116.3 FSH 1.9 N INSULIN Reviewed date:10/13/2023 02:18:02 PM Interpretation: Performing Lab:[facility], [address] [place], [address] Gurvinder Sethi MD Notes/Report: FASTING:YES FASTING: YES Reference Range < or = 18.4 Risk: Optimal < or = 18.4 Moderate NA High >18.4 Adult cardiovascular event risk category cut points (optimal, moderate, high) are based on Insulin Reference Interval studies performed at [facility] in 2021. INSULIN 13.6 N LH Reviewed date:10/13/2023 02:18:02 PM Interpretation: Performing Lab:[facility], [address] [place], [address] Gurvinder Sethi MD Notes/Report: FASTING:YES FASTING: YES Reference Range Follicular Phase 1.9-12.5 Mid-Cycle Peak 8.7-76.3 Luteal Phase 0.5-16.9 Postmenopausal 10.0-54.7 LH 3.0 N CBC (INCLUDES DIFF/PLT) Reviewed date:10/13/2023 02:18:02 PM Interpretation: Performing Lab:[facility], [address] [place], [address] Gurvinder Sethi MD Notes/Report: FASTING:YES FASTING: YES [...] 10.2 7.5-12.5 fL N ABSOLUTE NEUTROPHILS 3004 8073-7382 cells/uL N ABSOLUTE LYMPHOCYTES 2007 850-3900 cells/uL N ABSOLUTE MONOCYTES 626 200-950 cells/uL N ABSOLUTE EOSINOPHILS 110 15-500 cells/uL N ABSOLUTE BASOPHILS 52 0-200 cells/uL N NEUTROPHILS 51.8 N LYMPHOCYTES 34.6 N MONOCYTES 10.8 N EOSINOPHILS 1.9 N BASOPHILS 0.9 N PROGESTERONE Reviewed date:10/13/2023 02:18:02 PM Interpretation: Performing Lab:[facility], [address] [place], [address] Gurvinder Sethi MD Notes/Report: FASTING:YES FASTING: YES Reference Ranges Female Follicular Phase < 1.0 Luteal Phase 2.6-21.5 Post menopausal < 0.5 1st Trimester 4.1-34.0 2nd Trimester 24.0-76.0 3rd Trimester 52.0-302.0 PROGESTERONE 7.2 N PROLACTIN Reviewed date:10/13/2023 02:18:02 PM Interpretation: Performing Lab:[facility], [address] [place], [address] Gurvinder Sethi MD Notes/Report: FASTING:YES FASTING: YES Reference Range Females Non- 3.0-30.0 10.0-209.0 Postmenopausal 2.0-20.0 PROLACTIN 5.8 N IRON AND TOTAL IRON BINDING CAPACITY Reviewed date:10/13/2023 02:18:02 PM Interpretation: Performing Lab:[facility], [place], [address] Gurvinder Sethi MD Notes/Report: FASTING:YES FASTING: YES IRON, TOTAL 76 40-190 mcg/dL N IRON BINDING CAPACITY 346 250-450 mcg/dL (calc) N % SATURATION 22 16-45 % (calc) N T4, FREE Reviewed date:10/13/2023 02:18:02 PM Interpretation: Performing Lab:[facility], [address] [place], [address] Gurvinder Sethi MD Notes/Report: FASTING:YES FASTING: YES T4, FREE 1.2 0.8-1.8 ng/dL N TSH Reviewed date:10/13/2023 02:18:02 PM Interpretation: Performing Lab:[place], [facility], [address] [place], [address] Gurvinder Sethi MD Notes/Report: FASTING:YES FASTING: YES Reference Range > or = 20 Years 0.40-4.50 Ranges First trimester 0.26-2.66 Second trimester 0.55-2.73 Third trimester 0.43-2.91 TSH 1.93 N TESTOSTERONE, FREE (DIALYSIS ) AND TOTAL,MS Reviewed date:10/20/2023 09:33:54 PM Interpretation: Performing Lab:[facility], [facility] [address], [address], [place], [address] Carl Magallon MD,PhD Notes/Report: FASTING:YES FASTING: YES For additional information, please refer to https://education.StartBull/faq/INW365 (This link is being provided for informational/educational purposes only.) (Note) This test was developed and its analytical performance characteristics have been determined by [facility]. It has not been cleared or approved by the FDA. This assay has been validated pursuant to the CLIA regulations and is used for clinical purposes. (Note) This test was developed and its analytical performance characteristics have been determined by [employer]. It has not been cleared or approved by the FDA. This assay has been validated pursuant to the CLIA regulations and is used for clinical purposes. [facility] [address] [facility] [address] [facility] [id number] Carl Magallon MD, PhD TESTOSTERONE, TOTAL, MS 32 2-45 ng/dL TESTOSTERONE, FREE 2 0.1-6.4 pg/mL CORTISOL, FREE, 24 HOUR URIN E Reviewed date:12/12/2023 07:53:39 PM Interpretation: Performing Lab:[facility],, [address] [place], [address] Ambreen Ramsey MD,PhD,[facility] Notes/Report: FASTING:NO URINE VOLUME: 2000/NG FASTING: NO This test was developed and its analytical performance characteristics have been determined by [facility]. 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 Problem Attention deficit hyperactivity disorder (453323433) Attention-deficit hyperactivity disorder, unspecified type (F90.9) Active confirmed Problem 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 Vital Signs Heart Rate 69 /min 08/14/2024 Respiratory Rate 12 /min 02/02/2024 Oximetry 96 % 08/14/2024 Height-cm 160.02 cm 08/14/2024 Blood pressure diastolic 73 mm Hg 08/14/2024 Weight-kg 69.4 kg 08/14/2024 Height 63 in 08/14/2024 Blood pressure systolic 107 mm Hg 08/14/2024 Weight 153.0 lbs 08/14/2024 BMI 27.1 kg/m2 08/14/2024 Encounters Encounter Location Date Provider Diagnosis [address] [id number] 01/01/2024 Provider Migration [address] [address] 10/07/2023 Ivania Veronica 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 Ham [address] [place] [address] 12/16/2023 Britt Ham Obesity, unspecified E66.9 and Dietary counseling and surveillance Z71.3 [facility] Dr. Ham [address] [place] [address] 01/10/2024 Britt Hma Obesity, unspecified E66.9 and Dietary counseling and surveillance Z71.[address] Ham [address] [place] [phone] 02/02/2024 Britt Wood Obesity, unspecified E66.9 ; Dietary counseling and surveillance Z71.3 and Nausea R11.[address] Ham [address] [place] [address] 03/07/2024 Britt Wood Obesity, unspecified E66.9 and Dietary counseling and surveillance Z71.[address] Ham [address] [place] [address] 04/03/2024 Britt Wood Obesity, unspecified E66.9 and Dietary counseling and surveillance Z71.[address] Ham [address] [place] [phone] 05/01/2024 Britt Wood Obesity, unspecified E66.9 and Dietary counseling and surveillance Z71.[address] Ham [address] [place] [address] 05/29/2024 Britt Wood Overweight E66.3 ; Hypermobile Madhav-Danlos syndrome Q79.62 and Dietary counseling and surveillance Z71.[address] Ham [address] [place] [address] 07/12/2024 Britt Wood Overweight E66.3 ; Nausea R11.0 and Dietary counseling and surveillance Z71.[address] Ham [address] [place] [address] 08/14/2024 Britt Wood Overweight E66.3 and Dietary counseling and surveillance Z71.[address] 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 - Follow up with logging crew supervisor and urologist as scheduled. - Consider repeating [...] POTS, and stress. - Follow up with body hanger for POTS evaluation. 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 Patient education- Instructed the patient [...] syringes of 5 mg tirzepatide- lot number [id number] 2. Cravings and hunger- Patient reported increased [...] weight loss process. Consider referral to a diamond mounter if needed. 5. Insomnia- Patient reports no issues with sleep.- Plan: Continue to monitor sleep quality during follow-up visits. 6. Low Vitamin B12 levels- Patient's B12 levels are slightly low, which may contribute to fatigue.- Plan: Recommend a methylated B12 supplement or increased intake of B66-rfyx foods (turkey, chicken, fish). Recheck B12 levels at a future visit. 7. Gladstone's screening- Patient's DST result was 0.9, indicating no Gladstone's syndrome.- Plan: No further action needed at [...] prefilled 5 mg tirzepatide injections- lot number [id number] 2. Nausea related to medication- Patient experiences nausea after taking the shot on Sundays and Mondays. Occasional vomiting due to sensitive gag reflex.- Plan: Prescribe 4 mg of anti-nausea medication, allowing the patient to take up to 2 tablets twice daily as needed. Start with a 30-day supply and send the prescription to [facility] in [place]. 3. Constipation- Patient reports no significant issues [...] examination and/or evaluation, counseling and educating the patient/family/emergency care tech, ordering medications, tests, or procedures, referring and communicating with other health personal care home administrator, documenting clinical information in the electronic or other health record, independently interpreting results and communicating results to the patient/family/emergency care tech and care coordinating patient plan. Patient alert and oriented x 4 and aware of discussion noted above and in agreeance to plan in management of obesity/weight management and nausea. 03/07/2024 Other Assessment and Plan: 1. Stress fracture- Continue current management for stress fracture on one foot- Follow up with teacher education instructor as needed- Monitor for improvement in gait [...] examination and/or evaluation, counseling and educating the patient/family/emergency care tech, ordering medications, tests, or procedures, referring and communicating with other health personal care home administrator, documenting clinical information in the electronic or other health record, independently interpreting results and communicating results to the patient/family/emergency care tech and care coordinating patient plan. Patient alert [...] to 165 lbs. The patient is over group home to their goal weight.Continue with the current [...] examination and/or evaluation, counseling and educating the patient/family/emergency care tech, ordering medications, tests, or procedures, referring and communicating with other health personal care home administrator, documenting clinical information in the electronic or other health record, independently interpreting results and communicating results to the patient/family/emergency care tech and care coordinating patient plan. Patient alert [...] examination and/or evaluation, counseling and educating the patient/family/emergency care tech, ordering medications, tests, or procedures, referring and communicating with other health personal care home administrator, documenting clinical information in the electronic or other health record, independently interpreting results and communicating results to the patient/family/emergency care tech and care coordinating patient plan. Patient alert [...] examination and/or evaluation, counseling and educating the patient/family/emergency care tech, ordering medications, tests, or procedures, referring and communicating with other health personal care home administrator, documenting clinical information in the electronic or other health record, independently interpreting results and communicating results to the patient/family/emergency care tech and care coordinating patient plan. Patient alert [...] examination and/or evaluation, counseling and educating the patient/family/emergency care tech, ordering medications, tests, or procedures, referring and communicating with other health personal care home administrator, documenting clinical information in the electronic or other health record, independently interpreting results and communicating results to the patient/family/emergency care tech and care coordinating patient plan. Patient alert [...] examination and/or evaluation, counseling and educating the patient/family/emergency care tech, ordering medications, tests, or procedures, referring and communicating with other health personal care home administrator, documenting clinical information in the electronic or other health record, independently interpreting results and communicating results to the patient/family/emergency care tech and care coordinating patient plan. Patient alert and oriented x 4 and aware of discussion noted above and in agreeance to plan in management of weight management. Plan Of Treatment Next Appt Details Provider Name:Britt Ham, 03:20:00 PM, [address] [place] [address], [phone], Insurance Providers Payer Name Payer Address Payer Phone Subscriber Number Group Number Insured Name Patient Relationship to Insured Coverage Start Date Coverage End Date [employer] [address] [place] [address] [id number] Tiera To Self - patient is the insured Medical (General) History Medical History History ICD Code hypermobile ehurs-danlos kidney stones nausea headaches hair loss abdominal pain trouble losing weight fatigue Attention-deficit hyperactivity disorder , unspecified type F90.9 ALLERGY TO CEPHALOSPORINS ALLERGY TO LATEX Surgical History Surgery Date(Month/Year) ovarian cyst removal 2008 2011 kidney stone blasting 2022
--- OUTSIDE RECORDS SUMMARY | 2024-10-04 16:07 | XMS_ITS | Patient Health Record ---
Author Organization [facility] Address [address] [place] [address] Care Team Providers Care Printer Slotter Helper Name Role Phone JESSICA REEVES Primary Care Provider Dallas Stevens Unavailable [phone] Allergies Allergen (clinical drug ingredient) Drug/Non Drug [...] End Date Status Phenazopyridine HCl 200 MG Tablet Oral; Duration: 2 Days Activ e Equetro 100 MG Capsule Extended Release 12 Hour PLEASE SEE ATTACHED FOR DETAILED DIRECTIONS Oral; Duration: 60 Days Active buPROPion HCl ER (XL) 150 MG Tablet Extended Release 24 Hour 1 tablet every morning Orally Once a day; Duration: 90 days Active Tirzepatide 5 MG/0.5ML Solution Auto-injector as directed Subcutaneous 02/22/2024 Active Qulipta 30 MG Tablet TAKE 1 TABLET BY [facility] EVERY DAY Oral; Duration: 30 Days Active Ondansetron 4 MG Tablet Disintegrating Oral 07/01/2023 Active Pramipexole Dihydrochloride 0.5 MG Tablet 0.5 MG ORALLY EVERY DAY AT BEDTIME Oral; Duration: 90 Days Active Sertraline HCl 100 MG Tablet 1.5 tablet Oral Once a day; Duration: 90 days Active ALPRAZolam 0.5 MG Tablet TAKE 1 TABLET B Y MOUTH EVERY DAY NEEDED; Duration: 30 08/22/2024 Active Social History Tobacco Use: Social History Observation Description Date Details (start date - stop date) Never Smoker NA - NA Sex Assigned At : Social History Observation Description Sex Assigned At Female Social History Miscellaneous: Social Info Question Answer Notes Advance Care Planning Are you your own decision-maker Yes Do you have Power of Highway Technician for Health or Medi cami? Yes Do you have a power of regulatory attorney for health? Yes Do you have power of regulatory attorney for Medical ? Yes If yes, then please bring the POA paperwork so that we can upload it. Yes Drug/Alcohol: Social Info Question Answer Notes AUDIT-C (Standard) Did you have a drink containing alcohol in the past year? Yes How often did you have six or more drinks on one occasion in the past year? Never (0 point) How often did you have a drink containing alcohol in the past year? Monthly or less (1 point) Tobacco Use: Social Info Question Answer Notes Tobacco Control (Standard) Tobacco use: Nonsmoker Additional Details Category Social Info Options Details Migrated Social History Migrated Social History Alcohol Intake: Occasional 11/12/2022,Tobacco Years: Never smoker 11/12/2022 Problems Problem Type SNOMED Code ICD Code Onset Dates Problem Status W/U Status Risk Notes Problem Mild recurrent major depression (75060846) Major depressive disorder, recurrent, mild (F33.0) 07/01/19 Active confirmed Problem Generalized anxiety disorder (70865792) Generalized anxiety disorder (F41.1) 07/01/19 Active confirmed Problem Attention deficit hyperactivity disorder, combined type (79038099) Attention-deficit hyperactivity disorder, combined type (F90.2) 07/01/19 Active confirmed Problem Binge eating disorder (065970623) Binge eating disorder (F50.81) 07/01/19 24 Active confirmed Vital Signs Heart Rate 77 /min 09/11/2024 Height-cm 160.02 cm 09/11/2024 Blood pressure diastolic 65 mm Hg 09/11/2024 Weight-kg 69.31 kg 09/11/2024 Height 63.00 in 09/11/2024 Blood pressure systolic 91 mm Hg 09/11/2024 Weight 152.8 lbs 09/11/2024 BMI 27.06 kg/m2 09/11/2024 Encounters Encounter Location Date Provider Diagnosis [facility] [address] [place] [id number] 10/05/2023 Dallas Lilly Major depressive disorder, recurrent, mild F33.0 ; Attention-deficit hyperactivity disorder, combined type F90.2 ; Binge eating disorder F50.81 and Generalized anxiety disorder F41.[address] [address] 11/05/2023 Dallas Lilly Major depressive disorder, recurrent, mild F33.0 ; Attention-deficit hyperactivity disorder, combined type F90.2 ; Binge eating disorder F50.81 and Generalized anxiety disorder F41.[address] [address] 02/22/2024 Dallas Lilly Major depressive disorder, recurrent, mild F33.0 ; Attention-deficit hyperactivity disorder, combined type F90.2 ; Generalized anxiety disorder F41.1 and Binge eating disorder, mild F50.[address] [address] 04/24/2024 Dallasjameel Mariea Encounter for screen ing for depression Z13.31 ; Encounter for screening for cardiovascular disorders Z13.6 ; Major depressive disorder, recurrent, mild F33.0 ; Attention-deficit hyperactivity disorder, combined type F90.2 ; Generalized anxiety disorder F41.1 and Binge eating disorder, mild F50.[address] [address] 08/21/2024 Dallasjameel Rodriguezoza [address] [address] 09/11/2024 Dallasjameel Rodriguezoza Major depressive disorder, recurrent, mild F33.0 [...] for weight management, as prescribed by their it systems manager . - Patient reports nausea and anxiety as side effects. Plan: - Encourage the patient to discuss side effects with their it systems manager . - Monitor the patient's weight and [...] for weight management, as prescribed by their it systems manager . - Patient reports nausea and anxiety as side effects. Plan: - Encourage the patient to discuss side effects with their it systems manager . - Monitor the patient's weight and [...] for weight management, as prescribed by their it systems manager . - Patient reports nausea and anxiety as side effects. Plan: - Encourage the patient to discuss side effects with their it systems manager . - Monitor the patient's weight and [...] for weight management, as prescribed by their it systems manager . - Patient reports nausea and anxiety as side effects. Plan: - Encourage the patient to discuss side effects with their it systems manager . 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 Another telephone consultation took place on 09/30/2023 with BARRERA Haji at [facility], where issues of hypocitraturia, hypokalemia, and nephrolithiasis were noted. On 07/05/2024, orders were placed by Moni Tello MA at [facility] for nephrolithiasis. On 07/12/2024, further orders were made by Moni Tello MA at [facility], again for nephrolithiasis. On 07/18/2024, Selena Terry NP at [facility], noted plant allergic contact dermatitis during an office visit. A telephone consultation occurred on 08/01/2024 with Sarai Lin MA at [facility]. The patient also had an office visit with Ivania Veronica, and another office visit as a new patient with Ivania Veronica, though no specific dates were provided for these visits. Additionally, Britt Ham was involved in the patient's care, but no date was specified. Surgical History Surgery Date(Month/Year) Removal of ovarian cyst(s) (51237) Lithotripsy (702039354) x 2 section (20306413)
--- OUTSIDE RECORDS SUMMARY | 2024-10-04 16:07 | XMS_ITS | Patient Health Record ---
Author Organization [employer] [facility] Address [address] [address] Care Team Providers Care Geospatial Image Analyst Name Role Phone Britt Ham Unavailable [phone] Ivania Veronica Unavailable [phone] Migration, Provider Unavailable Unavailable Allergies No Known Allergies Results Component Value Reference Range Notes COMPREHENSIVE METABOLIC PANE L Reviewed date:10/13/2023 02:18:02 PM Interpretation: Performing Lab:[facility], [address] [place], [address] Gurvinder Sethi MD Notes/Report: FASTING:YES FASTING: YES ACTH, PLASMA Reviewed date:10/20/2023 09:33:54 PM Interpretation: Performing Lab:[facility], [address], [place], [address] Garry Metz M.D.,PhD Notes/Report: FASTING:YES FASTING: YES T3, FREE Reviewed date:10/13/2023 02:18:02 PM Interpretation: Performing Lab:[facility], [address] [place], [address] Gurvindre Sethi MD Notes/Report: FASTING:YES FASTING: YES CORTISOL, TOTAL Reviewed date:10/13/2023 02:18:02 PM Interpretation: Performing Lab:[facility], [address] [place], [address] Gurvinder Sethi MD Notes/Report: FASTING:YES FASTING: YES DHEA SULFATE Reviewed date:10/13/2023 02:18:02 PM Interpretation: Performing Lab:[facility], [address], [place], [address] Gurvinder Sethi MD Notes/Report: FASTING:YES FASTING: YES ESTRADIOL Reviewed date:10/13/2023 02:18:02 PM Interpretation: Performing Lab:[facility], [address], [place], [address] Gurvinder Sethi MD Notes/Report: FASTING:YES FASTING: YES FSH Reviewed date:10/13/2023 02:18:02 PM Interpretation: Performing Lab:[facility], [address], [place], [address] Gurvinder Sethi MD Notes/Report: FASTING:YES FASTING: YES INSULIN Reviewed date:10/13/2023 02:18:02 PM Interpretation: Performing Lab:[facility], [address], [place], [address] Gurvinder Sethi MD Notes/Report: FASTING:YES FASTING: YES LH Reviewed date:10/13/2023 02:18:02 PM Interpretation: Performing Lab:[facility], [address], [place], [address] Gurvinder Sethi MD Notes/Report: FASTING:YES FASTING: YES CBC (INCLUDES DIFF/PLT) Reviewed date:10/13/2023 02:18:02 PM Interpretation: Performing Lab:[facility], [address], [place], [address] Gurvinder Sethi MD Notes/Report: FASTING:YES FASTING: YES PROGESTERONE Reviewed date:10/13/2023 02:18:02 PM Interpretation: Performing Lab:[facility], [address], [place], [address] Gurvinder Sethi MD Notes/Report: FASTING:YES FASTING: YES PROLACTIN Reviewed date:10/13/2023 02:18:02 PM Interpretation: Performing Lab:[facility], [address], [place], [address] Gurvinder Sethi MD Notes/Report: FASTING:YES FASTING: YES IRON AND TOTAL IRON BINDING CAPACITY Reviewed date:10/13/2023 02:18:02 PM Interpretation: Performing Lab:[facility], [facility], [address], [place], [address] Gurvinder Sethi MD Notes/Report: FASTING:YES FASTING: YES T4, FREE Reviewed date:10/13/2023 02:18:02 PM Interpretation: Performing Lab:[facility], [facility], [address], [place], [address] Gurvinder Sethi MD Notes/Report: FASTING:YES FASTING: YES TSH Reviewed date:10/13/2023 02:18:02 PM Interpretation: Performing Lab:[facility], [facility], [address], [place], [address] Gurvinder Sethi MD Notes/Report: FASTING:YES FASTING: YES TESTOSTERONE, FREE (DIALYSIS ) AND TOTAL,MS Reviewed date:10/20/2023 09:33:54 PM Interpretation: Performing Lab:[facility], [address] [address], [address], [place], [address] Carl Magallon MD,PhD Notes/Report: FASTING:YES FASTING: YES TESTOSTERONE, TOTAL, MS 32 2-45 ng/dL For additional information, please refer to https://[email or web address]/faq/[email or web address] (This link is being provided for informational/educational purposes only.) (Note) This test was developed and its analytical performance characteristics have been determined by [employer]. It has not been cleared or approved by the FDA. This assay has been validated pursuant to the CLIA regulations and is used for clinical purposes. TESTOSTERONE, FREE 2 0.1-6.4 pg/mL (Note) This test was developed and its analytical performance characteristics have been determined by [employer]. It has not been cleared or approved by the FDA. This assay has been validated pursuant to the CLIA regulations and is used for clinical purposes. [facility] [address] [facility] [address] [facility] [address] Carl Magallon MD, PhD DEXAMETHASONE Reviewed date:11/29/2023 12:36:19 PM Interpretation: Performing Lab:[facility],, [address] [place], [address] Ambreen Ramsey MD,PhD,[facility] Notes/Report: DEXAMETHASONE 168 Reference Ranges for Dexamethasone: Baseline: Less than 20 ng/dL 1 mg dexamethasone overnight: 180-550 ng/dL (8:00-10:00 AM) This test was developed and its analytical performance characteristics have been determined by [employer]. It has not been cleared or approved by FDA. This assay has been validated pursuant to the CLIA regulations and is used for clinical purposes. CORTISOL, TOTAL Reviewed date:11/21/2023 08:48:03 PM Interpretation: Performing Lab:[facility], [address] [place], [address] Gurvinder Sethi MD Notes/Report: CORTISOL, FREE, 24 HOUR URIN E Reviewed date:12/12/2023 07:53:39 PM Interpretation: Performing Lab:[facility] [employer] [facility],, [address] [place], [address] Ambreen Ramsey MD,PhD,[facility] Notes/Report: FASTING:NO URINE VOLUME: 2000/NG FASTING: NO TOTAL VOLUME 2000 CORTISOL, FREE, URINE 23.0 4.0-50.0 mcg/24 h CORTISOL, FREE, URINE 20.6 Reference Range: ADULTS: 3.1-42.3 CREATININE, URINE 1.12 0.50-2.15 g/24 h This test was developed and its analytical performance characteristics have been determined by [employer]. It has not been cleared or approved [...] Status W/U Status Risk Notes Problem Obesity (658620743) Obesity, unspecified (E66.9) Active confirmed Problem Attention deficit hyperactivity disorder (115679369) Attention-deficit hyperactivity disorder, unspecified type (F90.9) Active confirmed Problem Morbid obesity (disorder) (419657112) Morbid (severe) obesity due to excess calories (E66.01) Active confirmed Problem Obesity due to excess calories (624553086) Other obesity due to excess calories (E66.09) Active confirmed Problem Disorder of mineral metabolism (68243273) Disorder of mineral metabolism, 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 ; Obesity, unspecified E66.9 and Hypermobile Madhav-Danlos syndrome Q79.62 [facility] Britt Ham [address] [place] [address] 12/16/2023 Britt Wood Obesity, unspecified E66.9 and Dietary counseling and surveillance Z71.3 [facility] Britt Ham [address] [place] [address] 01/10/2024 Britt Wood Obesity, unspecified E66.9 and Dietary counseling and surveillance Z71.3 [facility] Britt Ham [address] [place] [address] 02/02/2024 Britt Wood Obesity, unspecified E66.9 ; Dietary counseling and surveillance Z71.3 and Nausea R11.0 [facility] Britt Ham [address] [place] [address] 03/07/2024 Britt Wood Obesity, unspecified E66.9 and Dietary counseling and surveillance Z71.3 [facility]- Dr. Zamorano [address] [place] [address] 06/29/2024 Britt Ham [facility] [address] [place] [address] 11/22/2023 Ivania Veronica [facility] [address] [place] [address] 11/23/2023 [facility]- Dr. 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 - Follow up with software qa system specialist and urologist as scheduled. - Consider repeating [...] POTS, and stress. - Follow up with golf cart maker for POTS evaluation. - Monitor response to [...] Recommend natural shampoo (e.g., Purely Majestic from [employer] 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 Patient education- Instructed the patient [...] syringes of 5 mg tirzepatide- lot number [id number] 2. Cravings and hunger- Patient reported increased [...] weight loss process. Consider referral to a bulk fluids handler if needed. 5. Insomnia- Patient reports no issues with sleep.- Plan: Continue to monitor sleep quality during follow-up visits. 6. Low Vitamin B12 levels- Patient's B12 levels are slightly low, which may contribute to fatigue.- Plan: Recommend a methylated B12 supplement or increased intake of N35-hnul foods (turkey, chicken, fish). Recheck B12 levels [...] prefilled 5 mg tirzepatide injections- lot number [id number] 2. Nausea related to medication- Patient experiences nausea after taking the shot on Sundays and Mondays. Occasional vomiting due to sensitive gag reflex.- Plan: Prescribe 4 mg of anti-nausea medication, allowing the patient to take up to 2 tablets twice daily as needed. Start with a 30-day supply and send the prescription to [facility] in [place]. 3. Constipation- Patient reports no significant issues [...] procedures, referring and communicating with other health toddler caregiver, documenting clinical information in the electronic [...] fracture on one foot- Follow up with prescription eyeglass maker as needed- Monitor for improvement in gait [...] procedures, referring and communicating with other health toddler caregiver, documenting clinical information in the electronic [...] Insured Coverage Start Date Coverage End Date [facility] [address] [place] [address] [id number] Tiera To Self - patient is the insured Medical (General) History Medical History History ICD Code hypermobile ehurs-danlos kidney stones nausea headaches hair loss abdominal pain trouble losing weight fatigue Attention-deficit hyperactivity disorder , unspecified type F90.9 ALLERGY TO CEPHALOSPORINS ALLERGY TO LATEX Surgical History Surgery Date(Month/Year) kidney stone blasting 2022 2012 ovarian cyst removal 2008
--- OUTSIDE RECORDS SUMMARY | 2024-10-04 16:07 | XMS_ITS | Clinical Summary ---
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
== END 2024-10-04 15:48 | disposition home or self-care (01) ==
PROVIDERS: PCP Clinical Nurse Specialist; Visit Provider Urology
DX: N20.0 Calculus of kidney (principal); Z98.890 Other specified postprocedural states
CPT/HCPCS: 74018